=== PATIENT | male | born 1955 | race Caucasian/White ===

== ENCOUNTER → 2016-06-18 | Outpatient (CLI) | payer OTHER ==
[~2016-06-18] MED LIST: ACET50TAOT PO; ALBU17IN INH; ALBUPOW9 INH; ALBUTEROL NEB INH; AMIT24CA5 PO; BANANA; BIOF4GEL TOP; CARD1TAB5 PO; CARD40TA PO; FERR325T3 PO; LASI40TA PO; LEVA750T PO; LEVO100T54 PO; MUCI600T34 PO; PERCOCET PO; PROBCAP4 PO; PROP1TAB29 PO; SAVA1TAB5 PO; TAPA10TA2 PO; TYLE325T5 PO; VENTAER INH; VITA100072 PO
[2016-06-18 20:46] LABS: FREE T4 1.06 NG/DL (0.76-1.46)
== END | disposition home or self-care (01) ==
LOC: M LAB 17:23
PROVIDERS: ATTEND Internal Medicine Endocrinology, Diabetes & Metabolism
DX: E06.0 Acute thyroiditis (principal)

== ENCOUNTER → 2016-06-18 | Outpatient (CLI) | payer OTHER ==
--- NOTE | 2016-06-21 19:57 | SLEEPCENT ---
DATE OF PROCEDURE: 06/18/2016 ORDERED BY: Dr. Braswell Nocturnal polysomnography was performed for re-titration of pressure therapy. For testing, a ResMed Quattro full face mask of medium size was initially applied. Subsequent mask changes involved several devices. The initial pressure of 18 cm was applied to the circuit and the lights were extinguished. 7 hours and 18 minutes of data were reviewed. There were 219 minutes of sleep identified. Sleep latency was prolonged at 34 minutes. Rapid eye movement (REM) latency was prolonged at 179 minutes. Sleep architecture improved late in the study. Overall sleep efficiency was only 51.9%. The patient's EKG showed a sinus rhythm with an average heart rate of 66 beats per minute. EEG showed reasonably normal waveforms for awake and sleep. Persistence of respiratory events prompted an increase in continuous positive airway pressure (CPAP). Multiple pressures being attempted. Despite optimal mask fit and minimal air leak, the patient did have mask intolerance problems and was changed to a bilevel device. Tolerance seemed a bit better on bilevel therapy. Pressure titration was performed from 18/14 to 22/18. Despite pressures of 22/18, obstructive and mixed apneas were identified with saturations into the low 80s. There was insufficient test time to determine an optimal pressure. IMPRESSION: Severe obstructive sleep apnea syndrome (G47.33). RECOMMENDATION: Initiation of bilevel pressure therapy at an inspiratory pressure of 22 over an expiratory pressure of 18 would appear to be reasonable as the patient did not attain apnea-free sleep. An additional night for bilevel positive airway pressure (BiPAP) titration is recommended. Copy To: Yann Castillo
== END | disposition home or self-care (01) ==
LOC: M SLEEP 17:18
PROVIDERS: ATTEND Internal Medicine Pulmonary Disease
DX: G47.33 Obstructive sleep apnea (adult) (pediatric) (principal)

== ENCOUNTER → 2016-09-23 | Outpatient (REF) | payer OTHER ==
[~2016-09-23] MED LIST changes: +ASPI81TA85 PO; +LEVO88TA3
== END ==
LOC: M LAB REF 12:35
PROVIDERS: ATTEND Internal Medicine Medical Oncology
DX: C34.90 Malignant neoplasm of unspecified part of unspecified bronchus or lung (principal); D50.9 Iron deficiency anemia, unspecified

== ENCOUNTER 2016-09-26 18:00 | Emergency (ER) | payer OTHER ==
[~2016-09-26] VITALS: Ht 180.3 cm; Wt 98.9 kg
[~2016-09-26 18:00] MED LIST changes: -ASPI81TA85 PO; -LEVO88TA3
[2016-09-26] MEDS ORDERED: LEVO88TA3 (18:49)
[2016-09-26] MEDS ORDERED: ASPI81TA85 PO (18:49)
--- NOTE | 2016-09-27 00:30 | REPUSA ---
CT of the abdomen and pelvis without contrast Clinical statement: Pain. Technique: Multiple axial CT images were obtained from the base of the lungs to the floor of the pelv is utilizing 5 mm axial slices without administration of contrast. Coronal and sagittal reconstructio ns were also obtained. No comparison is available. Findings: Chest: The visualized lung bases are clear. Abdomen: The kidneys are normal in size bilaterally. There is mild left-sided hydronephrosis caused b y a 1.6 cm stone at the left ureteropelvic junction. Numerous stones are otherwise seen within the ki dneys bilaterally. There is no right-sided hydronephrosis. The liver, spleen, pancreas, and adrenal g lands are unremarkable. The aorta demonstrates normal caliber and contour. There is no abdominal lymp hadenopathy or ascites. Pelvis: The bowel is unremarkable, with no obstructive or inflammatory changes. The urinary bladder i s within normal limits. There is no pelvic lymphadenopathy or ascites. The other pelvic structures ap pear unremarkable. Bones: There are no suspicious osseous abnormalities seen. There is severe degenerative disc disease at L5/S1 and moderate degenerative disc disease at L4/L5. Small disc osteophyte complexes are seen at each of these levels. Impression: 1. Extensive bilateral nephrolithiasis. Mild left-sided hydronephrosis caused by 1.6 cm stone at the left ureteropelvic junction. 2. No obstructive or inflammatory bowel changes. 3. Degenerative disc disease with disc osteophyte complexes at L4/L5 and L5/S1 as described.
[2016-09-27 00:35] LABS: BASO % 0.8 % (0.0-1.0); EOS # 0.1 K/mm3 (0.0-0.50); EOS % 2.9 % (0.0-3.0); LARGE UNSTAINED CELL # 0.1 K/mm3 (0.0-0.4); LARGE UNSTAINED CELL % 1.4 % (0.0-4.0); LYMPH # 1.3 K/mm3 (1.5-4.5); LYMPH % 27.5 % (24.0-44.0); MEAN CORPUSCULAR HEMOGLOBIN 30.5 pg (27.0-33.0); MEAN CORPUSCULAR HGB CONC 33.7 g/dl (32.0-36.5); MEAN CORPUSCULAR VOLUME 90.4 fl (80.0-96.0); MONO # 0.3 K/mm3 (0.0-0.8); MONO % 6.5 % (0.0-5.0); NEUTROPHILS # 2.8 K/mm3 (1.8-7.7); PLATELET COUNT, AUTOMATED 163 k/mm3 (150-450); WHITE BLOOD COUNT 4.6 K/mm3 (4.0-10.0)
[2016-09-27 01:21] LABS: ANION GAP 4 MEQ/L (8-16); BLOOD UREA NITROGEN 21 MG/DL (7-18); CALCIUM LEVEL 8.7 MG/DL (8.8-10.2); CARBON DIOXIDE LEVEL 30 MEQ/L (21-32); CHLORIDE LEVEL 105 MEQ/L (98-107); CREATININE FOR GFR 0.67 MG/DL (0.70-1.30); GLOMERULAR FILTRATION RATE > 60.0 (>49); GLUCOSE, FASTING 81 MG/DL (80-110); POTASSIUM SERUM 4.1 MEQ/L (3.5-5.1); SODIUM LEVEL 139 MEQ/L (136-145)
[2016-09-27] MEDS ORDERED: NORCO, ANEXSIA 5/325MG TABLET (HYDROcodone/ACETAMINOPHEN) PO ONE (01:30)
[2016-09-27 01:37] VITALS: BP 120/80
== END 2016-09-27 01:43 | disposition home or self-care (01) ==
LOC: M ED 19:30
DX: N20.1 Calculus of ureter (principal); R31.9 Hematuria, unspecified; E03.9 Hypothyroidism, unspecified; Z95.0 Presence of cardiac pacemaker; Z85.118 Personal history of other malignant neoplasm of bronchus and lung; Z87.891 Personal history of nicotine dependence; Z79.899 Other long term (current) drug therapy

== ENCOUNTER → 2016-09-30 | Outpatient (CLI) | payer OTHER ==
[~2016-09-30] MED LIST changes: +ASPI81TA85 PO; +ISOVUE-370 76% 100ML VIAL (Q9967) As Ordered ONE; +LEVO88TA3
--- NOTE | 2016-09-30 10:16 | REP ---
CT study of the chest without contrast: History: Lung carcinoma, restaging. Comparison chest CT study August 29, 2015. CT contrast dose: 75 ml of Isovue 370 is administered intravenously. Chronic volume loss is again seen in the right hemithorax with paramediastinal distribution of fibrosis, bronchiectasis and collapse. There is diffuse pleural thickening on the right again noted with some pleural enhancement but no progressive change. There is an area of pleural calcification as well in the right base posteriorly. No pleural effusion is seen. No hilar or mediastinal adenopathy or mass lesion has developed. There are a few stable mediastinal calcifications in the right pretracheal region. No pericardial effusion is seen. Pacemaker is noted in the right heart. There is mild linear fibrosis in the left base. No pulmonary nodule or mass lesion is noted on the left or in the aerated portions of the right lung. No adrenal lesion is observed. There are clips in the gallbladder and anastomotic sutures in what appear to be the right colon. There is streaking in the peripancreatic fat today around the tail of the pancreas and the body of the pancreas raising question of pancreatitis. There is a celiac axis lymph node which is somewhat prominent measuring 1.0 cm in short axis x 1.8 cm in long axis. This is actually smaller in appearance, previously measured at 1.5 x 2.2 cm. A small accessory splenule is seen. The bottom slice in the imaging field of view shows calcific material in the renal pelvis on the left as previously described. No bony destructive lesion is appreciated. Impression: Stable intrathoracic findings. Question pancreatitis changes with peripancreatic edema. Cbozvw-V-Ckbm catheter and left-sided pacemaker. Signed by Justus Chambers MD 09/30/2016 12:08 P
== END ==
LOC: M RAD 08:10
PROVIDERS: ATTEND Nurse Practitioner Family
DX: C34.90 Malignant neoplasm of unspecified part of unspecified bronchus or lung (principal); Z95.0 Presence of cardiac pacemaker; Z95.828 Presence of other vascular implants and grafts
CPT/HCPCS: 71260; Q9967

== ENCOUNTER → 2016-10-28 | Outpatient (CLI) | payer OTHER ==
[~2016-10-28] MED LIST changes: +COLA100C3 PO; +DITR5TAB PO; +HYDR-3713 PO; +IBUPROFEN 100 MG/5 ML SUSP UDC DYE FREE As Ordered ONE; +IBUPROFEN 200 MG TAB PO ONE; +ISOVUE-300 61% 50ML VIAL (Q9967) As Ordered ONE; -ISOVUE-370 76% 100ML VIAL (Q9967) As Ordered ONE; +KETO10TAB PO; +KETOROLAC 30 MG/ML VIAL (J1885) As Ordered ONE; +KETOROLAC 30 MG/ML VIAL (J1885) IM ONE; +LIDOCAINE 1% SDV INJ 30 ML VIAL As Ordered ONE; +LIDOCAINE 1% SDV INJ 30 ML VIAL XX ONE; +LIDOCAINE 2% MDV 20 ML VIAL As Ordered ONE; +LR 1,000 ML IV SCH; +MIDAZOLAM INJ 2 MG/2 ML VIAL (J2250) As Ordered ONE; +MORPHINE 2 MG/ML 1ML SYRINGE As Ordered ONE; +MORPHINE 2 MG/ML 1ML SYRINGE IV ONE; +NORCO, ANEXSIA 5/325MG TABLET (HYDROcodone/ACETAMINOPHEN) As Ordered ONE; +NORCO, ANEXSIA 5/325MG TABLET (HYDROcodone/ACETAMINOPHEN) PO ONE; +OXYB5TA PO; +OXYC1TAB23 PO; +SODIUM BICARBONATE 8.4% INJ 50MEQ 50 ML VIAL As Ordered ONE; +TORADOL PO; +VICO5TAB16 PO; +cefTRIAXone SOD 1 GM VIAL (J0696) As Ordered ONE; +fentaNYL 100 MCG/2 ML INJECTION (J3010) As Ordered ONE; +fentaNYL 100 MCG/2 ML INJECTION (J3010) IV PRN; +oxyBUTYnin 5 MG TAB PO ONE
[2016-10-28] MEDS: NORCO, ANEXSIA 5/325MG TABLET (HYDROcodone/ACETAMINOPHEN) PO PRN ×4 (11:55→15:05)
--- NOTE | 2016-10-28 17:18 | REPKIM ---
CLINICAL HISTORY: Patient presents with left kidney stones as documented by the previous CT study. The referring urology service has requested a nephroureteral catheter (stent) placement for preop percutaneous nephrolithotripsy urology procedure. PROCEDURE PERFORMED: 1. Ultrasound left Kidney 2. Percutaneous antegrade Nephrostogram 3. Percutaneous Nephroureteral catheter (stent) placement INTERVENTIONALIST: Robert Cardozo MD CONSENT: The risks, benefits and alternatives to the procedure were explained to the patient and informed written consent was obtained. SEDATION: Sedation and analgesia was provided by the Anesthesiology Dept. MEDICATIONS: Rocephin 1gm IV, Local Lidocaine CONTRAST: 80 mL Isovue 300 EBL: 15 mL FLUORO TIME: 21.4 minutes DEVICE USED: 8.5F 26cm Nephroureteral catheter Lot #[id number] PROCEDURE/FINDINGS: The patient was brought to the interventional radiology suite and placed in the prone position, left flank prepped and draped in the usual sterile fashion. Time out procedure was performed. Ultrasound of the kidney showed a large renal pelvis kidney stone. Two smaller stones were seen in the mid and lower pole calyces. Minimally dilated calyces. Using ultrasound and fluoroscopy guidance, a 21-gauge Accustick needle was advanced into the targeted mid to lower pole of the left kidney, after infiltration of the skin and deep tissues with local anesthetic. Contrast was injected and images were obtained. This showed antegrade flow of contrast into the urinary bladder. Using a hydrophilic guidewire, the catheter-wire combination was advanced around the calyceal/renal pelvis stones into the proximal ureter then into the urinary bladder. Nephrostogram showed what appears to be filling defect in the distal ureter suggestive of partially broken migrated stones. The wire was then exchanged for a stiff wire. An 8.5-Maori 26-cm length nephroureteral was introduced over the guidewire after serial dilation of its tract. The guidewire was withdrawn and the distal end of the NU catheter formed in the bladder and proximal loop in the renal pelvis. Contrast injection showed antegrade flow of contrast into the bladder via the stent. The nephroureteral catheter was then flushed and capped. The patient tolerated the procedure well with no immediate complications. This procedure was performed using ultrasound and fluoroscopy. Dr. Cardozo was present. IMPRESSION: 1. Two calyceal stones and a large renal pelvic stone on the left. Nephrostogram demonstrates obstructing filling defect in the distal ureter suggestive of migrated stone(s) during the procedure. 2. 8.5F nephroureteral catheter (stent) placement with its tip positioned in the bladder and proximal loop in the renal pelvis. This access will be used for subsequent percutaneous nephrolithotripsy urology procedure. Findings discussed via phone with Dr. Banks. cc: Johnny Banks MD MTDD
[2016-10-28 18:30] VITALS: BP 100/47
== END | disposition home or self-care (01) ==
LOC: M IRPRO 08:35 → M SDC 08:35
PROVIDERS: ATTEND Urology
DX: N20.0 Calculus of kidney (principal)
CPT/HCPCS: 50395; 74485; 77001; C1769; C1887; C1894; C2625; J0696; J1885; J2250; J3010; Q9967

== ENCOUNTER 2016-10-30 10:23 | Day surgery (SDC) | payer OTHER ==
[~2016-10-30] VITALS: Ht 182.9 cm; Wt 100.0 kg
[~2016-10-30 10:23] MED LIST changes: -COLA100C3 PO; -DITR5TAB PO; -IBUPROFEN 100 MG/5 ML SUSP UDC DYE FREE As Ordered ONE; -IBUPROFEN 200 MG TAB PO ONE; -ISOVUE-300 61% 50ML VIAL (Q9967) As Ordered ONE; -KETO10TAB PO; -KETOROLAC 30 MG/ML VIAL (J1885) As Ordered ONE; -KETOROLAC 30 MG/ML VIAL (J1885) IM ONE; -LIDOCAINE 1% SDV INJ 30 ML VIAL As Ordered ONE; -LIDOCAINE 1% SDV INJ 30 ML VIAL XX ONE; -LIDOCAINE 2% MDV 20 ML VIAL As Ordered ONE; -LR 1,000 ML IV SCH; -MIDAZOLAM INJ 2 MG/2 ML VIAL (J2250) As Ordered ONE; -MORPHINE 2 MG/ML 1ML SYRINGE As Ordered ONE; -MORPHINE 2 MG/ML 1ML SYRINGE IV ONE; -NORCO, ANEXSIA 5/325MG TABLET (HYDROcodone/ACETAMINOPHEN) As Ordered ONE; -NORCO, ANEXSIA 5/325MG TABLET (HYDROcodone/ACETAMINOPHEN) PO ONE; -OXYB5TA PO; -OXYC1TAB23 PO; -SODIUM BICARBONATE 8.4% INJ 50MEQ 50 ML VIAL As Ordered ONE; -TORADOL PO; -VICO5TAB16 PO; -cefTRIAXone SOD 1 GM VIAL (J0696) As Ordered ONE; -fentaNYL 100 MCG/2 ML INJECTION (J3010) As Ordered ONE; -fentaNYL 100 MCG/2 ML INJECTION (J3010) IV PRN; -oxyBUTYnin 5 MG TAB PO ONE
[2016-10-30] MEDS ORDERED: LR 1,000 ML IV ONE (10:30)
[2016-10-30] MEDS ORDERED: VICO5TAB16 PO (11:18)
[2016-10-30] MEDS ORDERED: DITR5TAB PO (11:18)
[2016-10-30] MEDS ORDERED: TORADOL PO (11:18)
[2016-10-30] MEDS ORDERED: LIDOCAINE 2% INJ 100 MG/5 ML SDV (FOR ANES.) As Ordered ONE (12:04)
[2016-10-30] MEDS ORDERED: ROCURONIUM BROMIDE 50 MG/5 ML VIAL As Ordered ONE ×2 (12:04→14:02)
[2016-10-30] MEDS ORDERED: PROPOFOL 200 MG/20 ML VIAL As Ordered ONE (12:04)
[2016-10-30] MEDS ORDERED: MIDAZOLAM INJ 2 MG/2 ML VIAL (J2250) As Ordered ONE (12:05)
[2016-10-30] MEDS ORDERED: fentaNYL 250 MCG/5 ML INJECTION (J3010) As Ordered ONE (12:05)
[2016-10-30] MEDS ORDERED: CONRAY-60 60% 50ML VIAL (Q9961) As Ordered ONE (12:50)
[2016-10-30] MEDS ORDERED: OXYB5TA PO (12:56)
[2016-10-30] MEDS ORDERED: KETO10TAB PO (12:58)
[2016-10-30] MEDS ORDERED: ONDANSETRON 4MG/2ML VIAL (J2405) IV PRN ×2 (13:15→15:15)
[2016-10-30] MEDS ORDERED: oxyBUTYnin 5 MG TAB PO PRN (13:15)
[2016-10-30] MEDS ORDERED: ALBUTEROL 90 MCG/ACT 8GM HFA INHALER INH PRN (13:15)
[2016-10-30] MEDS ORDERED: ACETAMINOPHEN TAB 650MG DOSE (2X325MG) PO PRN (13:15)
[2016-10-30] MEDS ORDERED: MORPHINE 2 MG/ML 1ML SYRINGE IV PRN (13:15)
[2016-10-30] MEDS ORDERED: dexameTHASONE 4 MG/ML 1ML VIAL (J1100) As Ordered ONE (14:22)
[2016-10-30] MEDS ORDERED: GLYCOPYRROLATE INJ 0.2 MG/ML 2 ML VIAL As Ordered ONE (14:22)
[2016-10-30] MEDS ORDERED: ONDANSETRON 4MG/2ML VIAL (J2405) As Ordered ONE (14:22)
[2016-10-30] MEDS ORDERED: NEOSTIGMINE 1MG/ML 5 ML SYRINGE (J2710) As Ordered ONE (14:22)
[2016-10-30] MEDS ORDERED: PERCOCET 5MG/325MG TAB As Ordered ONE (15:02)
[2016-10-30] MEDS ORDERED: HYDROmorphone HCL 1 MG/ML SYRINGE (J1170) As Ordered ONE (15:02)
[2016-10-30] MEDS: PERCOCET 5MG/325MG TAB PO PRN ×3 (15:05→21:07)
[2016-10-30] MEDS: HYDROmorphone HCL 1 MG/ML SYRINGE (J1170) IV PRN ×5 (15:05→15:27)
--- NOTE | 2016-10-30 15:09 | REP ---
RETROGRADE PYELOGRAM: 10/30/2016. Clinical history: Nephrolithiasis. Findings: Five images from C-arm fluoroscopy provided to Dr. Banks of the urology division. Images show wire passed through nephrostomy tube into the collecting system and down the ureter. Images show a pigtail internal ureteral stent coiled in the bladder and renal pelvis with contrast in the collecting system and part of that ureter. Fluoroscopy time 1-minute 1-second Signed by Bhanu Fernánedz MD 10/30/2016 05:24 P
[2016-10-30 15:13] LABS: MEAN CORPUSCULAR HEMOGLOBIN 31.2 pg (27.0-33.0); MEAN CORPUSCULAR HGB CONC 32.8 g/dl (32.0-36.5); MEAN CORPUSCULAR VOLUME 95.1 fl (80.0-96.0)
[2016-10-30] MEDS ORDERED: LR 1,000 ML IV SCH (15:15)
[2016-10-30] MEDS ORDERED: METOCLOPRAMIDE INJ 10MG/2ML VIAL (J2765) IV PRN (15:15)
[2016-10-30 15:30] LABS: ANION GAP 5 MEQ/L (8-16); BLOOD UREA NITROGEN 19 MG/DL (7-18); CALCIUM LEVEL 7.6 MG/DL (8.8-10.2); CARBON DIOXIDE LEVEL 29 MEQ/L (21-32); CHLORIDE LEVEL 106 MEQ/L (98-107); CREATININE FOR GFR 0.72 MG/DL (0.70-1.30); GLOMERULAR FILTRATION RATE > 60.0 (>49); GLUCOSE, FASTING 82 MG/DL (80-110); POTASSIUM SERUM 4.1 MEQ/L (3.5-5.1); SODIUM LEVEL 140 MEQ/L (136-145)
[2016-10-30] MEDS: fentaNYL 100 MCG/2 ML INJECTION (J3010) IV PRN ×4 (15:35→15:55)
--- NOTE | 2016-10-30 16:48 | ROOPDOC ---
[facility] Report Of Operation Report of Operation DATE OF PROCEDURE: 10/30/2016 PREPROCEDURE DIAGNOSIS: Left kidney stones. POSTPROCEDURE DIAGNOSIS: Left kidney stones. PROCEDURE: Left percutaneous nephrolithotomy, left antegrade nephrostogram with intraoperative interpretation of images, left ureteral stent placement. SURGEON: Dr. Karey Cummings SENIOR GAME ADVISOR: None. ANESTHESIA: General. OPERATIVE INDICATIONS: This is a 61-year-old male who was found to have a 1.7cm left kidney stone as well as several smaller kidney stones. He was brought today for treatment. DESCRIPTION OF PROCEDURE: The patient was brought to the operating room and general anesthesia was induced. Prophylactic antibiotics were infused. He then had a Sorto catheter placed under sterile conditions. He was then placed in the prone position and then prepped and draped in the usual sterile fashion. Of note, the patient previously had a nephroureteral stent placed via interventional radiology. I used the nephroureteral stent to gain access to the kidney. A wire was advanced down the stent, all the way down to the bladder and then the nephroureteral stent was removed. An approximately 3 cm transverse incision was made adjacent to the wire. I then advanced a dual lumen ureteral catheter down the wire and into the left renal pelvis. An antegrade nephrostogram was performed. It was negative for extravasation. I then advanced a Super Stiff wire down the dual lumen ureteral catheter and this was advanced all the way down into the bladder as well. The dual lumen ureteral catheter was then removed, leaving both wires in place. The Super Stiff wire was then secured to the drape to serve as a safety wire. I then advanced a balloon dilator over the guidewire and into the left renal pelvis. The balloon was then dilated to 18 atmospheres and then left in place for a minute. I then advanced a sheath over the balloon and into the left collecting system. The balloon was then let down and removed, leaving the sheath in place. The wire was also left in place. I then went into the left kidney with a nephroscope, and the 1.7 cm stone was easily seen. The stone was then fragmented into several smaller pieces using a CyberWand and the pieces were suctioned out. Once the larger stone had been removed, I then used a flexible cystoscope to examine the remainder of the kidney and only small stone fragments were seen. I then went down the ureter with a flexible ureteroscope and no stones were seen in the ureter. At this point, I then advanced a 7-Solomon Islander x 22-32 cm JJ ureteral stent down into the left collecting system over the guidewire. The wire was then removed and there were adequate curls of the stent in the left renal pelvis and in the bladder. At this point, the access sheath was removed, and I advanced an 18- Solomon Islander [place] Tip catheter over the Super Stiff wire into the left collecting system. The balloon was then inflated with about 2-3 mL of contrast and then that Super Stiff wire was removed. I then shot an antegrade nephrostogram, and it was negative for extravasation and also noted the nephrostomy catheter was in good position. This catheter was then secured to the skin using a #3-0 silk suture. Once that was done, the catheter was connected to gravity drainage. Dressings were then applied, and this marked the conclusion of the procedure. The patient was then taken out of the prone position, awakened from anesthesia, and transported to the recovery room in stable condition. ESTIMATED BLOOD LOSS: 50 mL. COMPLICATIONS: None. SPECIMENS: Left kidney stone fragments. PLAN: The patient will be kept in the hospital overnight. Assuming his blood work is within acceptable limits and his pain is controlled, we will remove his nephrostomy catheter in the morning and then his Sorto catheter as well. His stent will be removed in 2-3 weeks. KAREY CUMMINGS MD October 30, 2016 16:47
[2016-10-30] MEDS: ceFAZolin SOD 1 GM in D5W MINI-BAG PLUS 50 ML IV SCH (18:34)
[2016-10-30] MEDS: NS 1,000 ML IV SCH ×2 (18:35→21:05)
[2016-10-30] MEDS: DOCUSATE SODIUM 100 MG CAP PO SCH (21:06)
[2016-10-30 22:00] VITALS: BP 105/53
[2016-10-31] MEDS: ceFAZolin SOD 1 GM in D5W MINI-BAG PLUS 50 ML IV SCH (03:00)
[2016-10-31] MEDS: PERCOCET 5MG/325MG TAB PO PRN (03:52)
[2016-10-31] MEDS: NS 1,000 ML IV SCH ×2 (03:59→12:58)
[2016-10-31 06:00] VITALS: BP 108/58
[2016-10-31] MEDS ORDERED: LEVOTHYROXINE 0.1 MG TAB (100 MCG) PO SCH (06:00)
[2016-10-31 06:53] LABS: MEAN CORPUSCULAR HEMOGLOBIN 31.3 pg (27.0-33.0); MEAN CORPUSCULAR HGB CONC 32.9 g/dl (32.0-36.5); MEAN CORPUSCULAR VOLUME 95.3 fl (80.0-96.0); RED CELL DISTRIBUTION WIDTH 13.9 % (11.5-14.5); WHITE BLOOD COUNT 5.9 K/mm3 (4.0-10.0)
[2016-10-31 07:06] LABS: ANION GAP 6 MEQ/L (8-16); BLOOD UREA NITROGEN 16 MG/DL (7-18); CALCIUM LEVEL 7.4 MG/DL (8.8-10.2); CARBON DIOXIDE LEVEL 28 MEQ/L (21-32); CHLORIDE LEVEL 105 MEQ/L (98-107); CREATININE FOR GFR 0.63 MG/DL (0.70-1.30); GLOMERULAR FILTRATION RATE > 60.0 (>49); GLUCOSE, FASTING 119 MG/DL (80-110); POTASSIUM SERUM 4.2 MEQ/L (3.5-5.1); SODIUM LEVEL 139 MEQ/L (136-145)
[2016-10-31] MEDS ORDERED: ASPIRIN 81 MG ENTERIC TAB PO SCH (09:00)
[2016-10-31] MEDS: DOCUSATE SODIUM 100 MG CAP PO SCH (09:19)
--- NOTE | 2016-10-31 10:04 | IPNPDOC ---
Assessment/Plan Date Seen The patient was seen on 10/31/16. Patient Summary This is a 61 y/o M POD1 s/p left PCNL. His nephrostomy tube drainage is still pretty bloody. I therefore did not remove it this morning. His Hb went down a little to 9.3. His vitals are stable. Plan/VTE VTE Prophylaxis Ordered?: Yes VTE Exclusion Mechanical Proph: N/A:VTE Prophy Ordered Plan/Urinary Catheter Urinary Catheter: Other Catheter: (keep catheter in place until hematuria improves) Plan - will plan to keep the nephrostomy tube in place for now to help tamponade any bleeding - once hematuria from the nephrostomy tube improves, I will remove it - melo catheter to be removed after the nephrostomy tube is removed - keep IVF going for now - ambulate - percocet prn pain - strict I/Os - SCDs - regular diet Subjective Review oF Systems Chief Complaint The patient is a 61-year-old male admitted with a reason for visit of Nephrolithiasis. Events since Last Encounter No acute events o/n. Patient notes good pain control. No n/v. No f/c/ns. Objective Physical Examination General Exam: Alert, Cooperative, No Acute Distress Skin Exam: Nl turgor and temperature Neuro Exam: Normal Speech Psych Exam: Mental status NL, Mood NL Other physical findings left nephrostomy catheter draining bloody urine; catheter in place w/ pink urine draining Vital Signs/I&O Vital Signs Date Time Temp Pulse Resp B/P (MAP) Pulse Ox O2 Delivery O2 Flow Rate FiO2 10/31/16 06:00 97.3 70 18 108/58 (75) 95 Room Air 10/30/16 21:30 2.0 I&O- Last 24 Hours up to 6 AM 10/31/16 06:00 Intake Total 2060 ml Output Total 825 ml Balance 1235 ml Laboratory Data Labs 24H Laboratory Tests 2 10/30/16 14:10: 10/30/16 14:58: Anion Gap 5L, Glomerular Filtration Rate > 60.0, Blood Urea Nitrogen 19H, Creatinine 0.72, Sodium Level 140, Potassium Level 4.1, Chloride Level 106, Carbon Dioxide Level 29, Calcium Level 7.6L 10/31/16 06:18: Anion Gap 6L, Glomerular Filtration Rate > 60.0, Blood Urea Nitrogen 16, Creatinine 0.63L, Sodium Level 139, Potassium Level 4.2, Chloride Level 105, Carbon Dioxide Level 28, Calcium Level 7.4L CBC/BMP Laboratory Tests 10/30/16 14:58 Red Blood Count 3.26 L, Mean Corpuscular Volume 95.1, Mean Corpuscular Hemoglobin 31.2, Mean Corpuscular Hemoglobin Concent 32.8, Red Cell Distribution Width 14.0, Calcium Level 7.6 L 10/31/16 06:18 Red Blood Count 2.98 L, Mean Corpuscular Volume 95.3, Mean Corpuscular Hemoglobin 31.3, Mean Corpuscular Hemoglobin Concent 32.9, Red Cell Distribution Width 13.9, Calcium Level 7.4 L KAREY CUMMINGS MD October 31, 2016 10:04
[2016-10-31] MEDS ORDERED: COLA100C3 PO (16:47)
[2016-10-31] MEDS ORDERED: OXYC1TAB23 PO (16:47)
[2016-10-31] MEDS ORDERED: TYLE325T5 PO (16:48)
== END 2016-10-31 20:12 | disposition home or self-care (01) ==
LOC: M OR 10:23 → UNDOADMIN 10:23 → M MS5PR 10:23 → M SDC 10:23 → EDSTATUS 12:30 → M MS5PR 16:10 → M OR 16:10 → M SDC 10-31 20:12 → UNDODISIN 10-31 20:12
PROVIDERS: ATTEND Urology
DX: N20.0 Calculus of kidney (principal); E03.9 Hypothyroidism, unspecified; J44.9 Chronic obstructive pulmonary disease, unspecified; G47.33 Obstructive sleep apnea (adult) (pediatric); I48.3 Typical atrial flutter; I49.5 Sick sinus syndrome; Z95.0 Presence of cardiac pacemaker; E66.8 Other obesity; Z85.118 Personal history of other malignant neoplasm of bronchus and lung; Z92.21 Personal history of antineoplastic chemotherapy; Z92.3 Personal history of irradiation; Z79.899 Other long term (current) drug therapy; Z79.82 Long term (current) use of aspirin; Z79.2 Long term (current) use of antibiotics
CPT/HCPCS: 36415; 50080; 74420; 80048; 82360; 85027; 86850; 86900; 86901; 88300; 96361; 96374; 96376; C1726; C1769; C1887; C2617; J0690; J1100; J1170; J2250; J2405; J2710; J3010; Q9961

== ENCOUNTER → 2016-11-19 | Day surgery (SDC) | payer OTHER ==
[~2016-11-19] VITALS: Ht 182.9 cm; Wt 99.8 kg
[~2016-11-19] MED LIST changes: +BUPIVACAINE LIPOSOME/PF 1.3% 20 ML VIAL (13.3MG/ML)(EXPAREL) As Ordered ONE; +COLA100C3 PO; +CONRAY-60 60% 50ML VIAL (Q9961) As Ordered ONE; +DITR5TAB PO; +KETO10TAB PO; +LIDOCAINE 1% MDV 20ML VIAL As Ordered ONE; +LIDOCAINE 2% INJ 100 MG/5 ML SDV (FOR ANES.) As Ordered ONE; +LR 1,000 ML IV SCH; +MIDAZOLAM INJ 2 MG/2 ML VIAL (J2250) As Ordered ONE; +MUPIROCIN 2% OINT 22 GM TUBE TOP ONE; +OXYB5TA PO; +OXYC1TAB23 PO; +PROPOFOL 200 MG/20 ML VIAL As Ordered ONE; +TORADOL PO; +VICO5TAB16 PO; +ceFAZolin 1GM INJ (J0690) As Ordered ONE; +ceFAZolin SOD 1 GM in D5W MINI-BAG PLUS 50 ML IV ONE; +ePHEDrine SULFATE 25 MG/5 ML(5MG/ML) SYRINGE As Ordered ONE; +fentaNYL 100 MCG/2 ML INJECTION (J3010) As Ordered ONE
[2016-11-19 12:00] VITALS: BP 97/52
--- NOTE | 2016-11-19 12:15 | REP ---
C-ARM VIEWS CHEST: C-arm views of the chest are performed during intraoperative procedure. Multiple leads are seen overlying the chest. 59 minutes and 38 seconds fluoroscopy time utilized. Signed by Carlos Monzon MD 11/19/2016 12:55 P
--- NOTE | 2016-11-19 14:02 | RO ---
DATE OF PROCEDURE: 11/19/2016 PREPROCEDURE DIAGNOSIS: Retained Topynp-T-Gvhc after completion of chemotherapy nearly 8 years ago. POSTPROCEDURE DIAGNOSIS: Retained Iosysp-E-Uvmk after completion of chemotherapy nearly 8 years ago. PROCEDURE: Removal of Hulmnu-Z-Fqkt. SURGEON: Juan M Kwon MD PRODUCTION LINE SOLDERER: ANESTHESIA: FINDINGS: The Uvgfmf-Q-Jxjo was located, and the glistening capsule was entered. The stem of the port was identified, and the catheter was mobilized. The catheter then pulled out very easily. However, upon inspection of the catheter, it was found that the end had been shredded at about 20 cm and that there was still retained catheter in the vena cava. The patient had between the time of the removal and the original placement nearly 8 years ago had a pacemaker placed. It was conjectured that the pacemaker insertion shredded the catheter at the junction of the innominate vein and the vena cava. The pacer was placed in 2010, and the catheter has been detached from the proximal end for about 6 years. Nonetheless, I asked Dr. Cardozo of interventional radiology to come up and try to retrieve the catheter; and after 2 hours, it was clear that the catheter was fibrosed through the vena caval wall and was not going to be coming out. Dr. Cardozo's dictation will be done separately. DESCRIPTION OF PROCEDURE: Under satisfactory monitored anesthesia care (MAC) anesthesia, the patient was prepped and draped in the usual sterile fashion. Incision was made over the Yxygty-L-Hjus site with care being taken not to enter the capsule of the pacemaker. The capsule of the port was entered. The stem was identified, and dissection was carried more proximal until the catheter could actually be seen. The catheter was seized with a hemostat and delivered into the wound. The catheter was then pulled back from its entry point in the subcutaneous tissue. The catheter pulled very easily, but upon inspection, the above results were noted with the catheter being shredded at about 20 cm. The catheter and port were left in situ until Dr. Cardozo came to the operating room and was able to assess and see the end of the catheter and where it would have been projected into the vena cava. The remainder of the Byioqt-C-Fyuv was then removed, as was the glistening capsule. The incision was closed with running #3-0 Vicryl suture for the subcutaneous tissue and running #4-0 Monocryl suture for the skin. Dr. Cardozo then proceeded to attempt to remove the end of the distal catheter by interventional techniques. That will be dictated in a separate note. The patient tolerated the procedure well.
== END | disposition home or self-care (01) ==
LOC: M SDC 07:28
PROVIDERS: ATTEND Thoracic Surgery (Cardiothoracic Vascular Surgery)
DX: Z45.2 Encounter for adjustment and management of vascular access device (principal); I48.0 Paroxysmal atrial fibrillation; I48.3 Typical atrial flutter; I49.5 Sick sinus syndrome; E66.8 Other obesity; I10 Essential (primary) hypertension; J44.9 Chronic obstructive pulmonary disease, unspecified; E03.9 Hypothyroidism, unspecified; I51.9 Heart disease, unspecified; K59.00 Constipation, unspecified; R19.7 Diarrhea, unspecified; G47.33 Obstructive sleep apnea (adult) (pediatric); R06.83 Snoring; Z79.899 Other long term (current) drug therapy; Z79.82 Long term (current) use of aspirin; Z85.118 Personal history of other malignant neoplasm of bronchus and lung; Z87.442 Personal history of urinary calculi; Z86.010 Personal history of colon polyps; Z87.891 Personal history of nicotine dependence; Z92.21 Personal history of antineoplastic chemotherapy; Z92.3 Personal history of irradiation; Z95.0 Presence of cardiac pacemaker
CPT/HCPCS: 36590; 76000; 88300; C1769; C1887; C1894; J0690; J2250; J3010; Q9961

== ENCOUNTER → 2016-11-20 | Outpatient (CLI) | payer OTHER ==
[~2016-11-20] MED LIST changes: -BUPIVACAINE LIPOSOME/PF 1.3% 20 ML VIAL (13.3MG/ML)(EXPAREL) As Ordered ONE; -CONRAY-60 60% 50ML VIAL (Q9961) As Ordered ONE; +ISOVUE-300 61% 50ML VIAL (Q9967) As Ordered ONE; -LIDOCAINE 1% MDV 20ML VIAL As Ordered ONE; -LIDOCAINE 2% INJ 100 MG/5 ML SDV (FOR ANES.) As Ordered ONE; -LR 1,000 ML IV SCH; -MUPIROCIN 2% OINT 22 GM TUBE TOP ONE; -PROPOFOL 200 MG/20 ML VIAL As Ordered ONE; +SODIUM BICARBONATE 4 % INJ 2.4MEQ 5 ML VIAL (THIS HAS A PRESERVATIVE) As Ordered ONE; -ceFAZolin 1GM INJ (J0690) As Ordered ONE; -ceFAZolin SOD 1 GM in D5W MINI-BAG PLUS 50 ML IV ONE; -ePHEDrine SULFATE 25 MG/5 ML(5MG/ML) SYRINGE As Ordered ONE
[2016-11-20 16:30] VITALS: BP 112/65
--- NOTE | 2016-11-20 17:30 | REPKIM ---
CLINICAL HISTORY: Patient with la history of lung ca, history of radiation treatment in the past, left chest rvhrsk-y-rmom since 2008 and internal pacemaker since 2015 has a broken lsoumb-e-ansjsart with its tip in the right heart. Patient presents to interventional radiology for foreign body retrieval. PROCEDURE PERFORMED: Endovascular Foreign Body Retrieval INTERVENTIONALIST: Robert Cardozo MD CONSENT: The risks, benefits and alternatives to the procedure were explained to the patient and his and informed written consent was obtained. SEDATION: Sedation and analgesia was provided by the Anesthesiology Dept. EBL: less than 10 mL FLUORO TIME: 21 minutes DEVICE USED: 20mm Goose Neck Snare PROCEDURE/FINDINGS: The patient was brought to the interventional radiology suite where a timeout procedure was performed. The patient was placed in the supine position. A pre- procedure chest fluoroscopy confirmed a retained infusate catheter tip in the right atrium. The free cephalic end of catheter was confirmed to be stuck to the SVC wall. The left internal pacemaker is in a satisfactory course and position. The right groin was prepped and draped in the usual sterile fashion. Local anesthetic was established using Lidocaine. Using ultrasound guidance, the right common femoral vein was accessed with a micropuncture needle. Using Seldinger technique, a 10-Togolese long vascular sheath was introduced. The sheath was advanced over a guide wire into the superior vena cava and its tip positioned at the level of the cavoatrial junction. A 5-Togolese SOS catheter was introduced over a guidewire. I successfully dislodged the broken catheter tip from the RA end by whipping it with a SOS catheter. This also confirmed the RA end of the catheter is free from the RA wall and not adherent to the internal cardia pacer wire. A 6-Togolese long curvelinear sheath was then coaxially introduced. A 20mm wire loop snare was then advanced through the 6F sheath and used to snare the free end of the catheter in the right atrium. With some manipulations of the sheath and snare, the proximal end of the catheter at the SVC was freed relatively easily. Inspection of the retrieved infusate catheter confirmed that it was removed in its entirety and the catheter was intact. Post FB retrieval chest also confirmed the existing internal cardiac pacemaker is intact in a satisfactory course and position. The sheath was removed. Hemostasis was achieved by manual compression over the puncture site. The patient tolerated the procedure well with no immediate complications. This procedure was performed using fluoroscopy. Dr. Cardozo was present. IMPRESSION: Successful retrieval of a retained infusate catheter in the right heart as discussed above. cc: Juan M Kwon MD [facility]
== END | disposition home or self-care (01) ==
LOC: M OROP 11:53 → M SDC 11:53
DX: T82.514A Breakdown (mechanical) of infusion catheter, initial encounter (principal); Z85.118 Personal history of other malignant neoplasm of bronchus and lung; Z92.3 Personal history of irradiation
CPT/HCPCS: 36589; 77001; C1757; C1769; C1887; C1894; J2250; J3010; Q9967

== ENCOUNTER → 2016-11-28 | Outpatient (CLI) | payer OTHER ==
[~2016-11-28] MED LIST changes: -ISOVUE-300 61% 50ML VIAL (Q9967) As Ordered ONE; -MIDAZOLAM INJ 2 MG/2 ML VIAL (J2250) As Ordered ONE; -SODIUM BICARBONATE 4 % INJ 2.4MEQ 5 ML VIAL (THIS HAS A PRESERVATIVE) As Ordered ONE; -fentaNYL 100 MCG/2 ML INJECTION (J3010) As Ordered ONE
== END ==
LOC: M SMT 08:10
PROVIDERS: ATTEND Thoracic Surgery (Cardiothoracic Vascular Surgery)
DX: C34.90 Malignant neoplasm of unspecified part of unspecified bronchus or lung (principal); R91.8 Other nonspecific abnormal finding of lung field

== ENCOUNTER 2017-06-05 14:03 | Emergency (ER) | payer OTHER ==
[~2017-06-05] VITALS: Ht 177.8 cm; Wt 100.0 kg
[~2017-06-05 14:03] MED LIST changes: -AMIT24CA5 PO; +AMIT24CA7 PO; +AMIT8CAP4 PO; +ASPI81TAEC PO; -COLA100C3 PO; +COLA100C5 PO; +DOXY-278 PO; +ELIQ5TAB PO; +FLON1SPR; +IBUPOTC PO; -LEVA750T PO; +LEVA750T7 PO; +LEVO88TA24 PO; +MUCI600T37 PO; -OXYB5TA PO; +OXYB5TAB10 PO; +VITA100066 PO; +VITA500T3 PO; +ZYRT10TA2 PO
[2017-06-05] MEDS ORDERED: ONDANSETRON 4MG/2ML VIAL (J2405) IV ONE (15:15)
[2017-06-05] MEDS ORDERED: MORPHINE 4 MG/ML 1ML SYRINGE IV PRN (15:15)
--- NOTE | 2017-06-05 16:15 | REP ---
Right ankle series: Four views: History: Trauma. Findings: Four view s of the right ankle demonstrate lateral malleolar swelling. There is a bone island in the distal tibia. Osteoarthritic spurring is seen at the ankle. There is Achilles calcaneal spurring. No fracture or subluxation is seen. Impression: Ankle osteoarthritis. No fracture seen. Heel spur. Signed by Justus Chambers MD 06/05/2017 05:11 P
--- NOTE | 2017-06-05 16:17 | REP ---
Right tib-fib series: Two views. History: Trauma. Findings: AP and lateral views of the right tibia and fibula are compared with ankle images. There is a nondisplaced fracture through the proximal fibular salty-metaphyseal region. No proximal tibial fracture is seen. Impression: Nondisplaced proximal fibular salty-metaphyseal fracture. No tibial fracture seen. Signed by Justus Chambers MD 06/05/2017 05:11 P
[2017-06-05] MEDS ORDERED: NORCOTAB PO (17:01)
[2017-06-05] MEDS ORDERED: NORCO, ANEXSIA 5/325MG TABLET (HYDROcodone/ACETAMINOPHEN) PO ONE (17:15)
[2017-06-05 17:22] VITALS: BP 122/61
== END 2017-06-05 17:48 | disposition home or self-care (01) ==
LOC: M ED 14:03 → EDBD 14:03 → M ED 17:48
DX: S82.831A Other fracture of upper and lower end of right fibula, initial encounter for closed fracture (principal); S93.401A Sprain of unspecified ligament of right ankle, initial encounter; W00.9XXA Unspecified fall due to ice and snow, initial encounter; Y92.009 Unspecified place in unspecified non-institutional (private) residence as the place of occurrence of the external cause; Y93.01 Activity, walking, marching and hiking; Y99.8 Other external cause status; C34.90 Malignant neoplasm of unspecified part of unspecified bronchus or lung; J44.9 Chronic obstructive pulmonary disease, unspecified; I48.91 Unspecified atrial fibrillation; G47.33 Obstructive sleep apnea (adult) (pediatric); F17.210 Nicotine dependence, cigarettes, uncomplicated; Z79.82 Long term (current) use of aspirin; Z79.899 Other long term (current) drug therapy; Z88.8 Allergy status to other drugs, medicaments and biological substances
CPT/HCPCS: 73590; 73610; 96374; 96375; 99284; J2405

== ENCOUNTER → 2017-07-09 | Outpatient (REF) | payer OTHER ==
[2017-07-09 14:50] LABS: FERRITIN 283 NG/ML (26-388); IRON (FE) 52 UG/DL (65-175); TOTAL IRON BINDING CAPACITY 200 UG/DL (250-450)
== END ==
LOC: M LAB REF 13:32
DX: Z08 Encounter for follow-up examination after completed treatment for malignant neoplasm (principal); Z85.118 Personal history of other malignant neoplasm of bronchus and lung; D50.9 Iron deficiency anemia, unspecified
CPT/HCPCS: 83550

== ENCOUNTER → 2017-07-30 | Outpatient (CLI) | payer OTHER | LOC: M RAD 07:02 | DX: R91.8 Other nonspecific abnormal finding of lung field (principal) | CPT/HCPCS: 71250 ==

== ENCOUNTER 2018-03-07 23:41 | Inpatient (IN) | payer OTHER ==
[2018-03-08 00:30] LABS: ALBUMIN 3.4 GM/DL (3.2-5.2); ALBUMIN/GLOBULIN RATIO 0.76 (1.00-1.93); ALKALINE PHOSPHATASE 46 U/L (45-117); ALT/SGPT 14 U/L (12-78); ANION GAP 5 MEQ/L (8-16); AST/SGOT 21 U/L (7-37); BILIRUBIN,DIRECT 0.2 MG/DL (0.0-0.2); BILIRUBIN,TOTAL 0.6 MG/DL (0.2-1.0); BLOOD UREA NITROGEN 19 MG/DL (7-18); CALCIUM LEVEL 8.1 MG/DL (8.8-10.2); CARBON DIOXIDE LEVEL 31 MEQ/L (21-32); CHLORIDE LEVEL 105 MEQ/L (98-107); CPK CREATINE PHOSPHOKINASE 137 U/L (39-308); CREATININE FOR GFR 1.03 MG/DL (0.70-1.30); GLOMERULAR FILTRATION RATE > 60.0 (>49); GLUCOSE, FASTING 86 MG/DL (70-100); MB/CK RELATIVE INDEX 0.95 (< OR =4); NT-PRO BNP 1367 PG/ML (<125); POTASSIUM SERUM 3.7 MEQ/L (3.5-5.1); SODIUM LEVEL 141 MEQ/L (136-145); THYROID STIMULATING HORMONE 0.367 uIU/ML (0.358-3.740); THYROXINE (T4) 9.4 UG/DL (4.5-12.0); TOTAL PROTEIN 7.9 GM/DL (6.4-8.2); TROPONIN I < 0.02 NG/ML (< 0.10)
[2018-03-08 00:37] LABS: HEMATOCRIT 33.3 % (42.0-52.0); HEMOGLOBIN 10.8 g/dl (13.5-17.5); MEAN CORPUSCULAR HEMOGLOBIN 30.4 pg (27.0-33.0); MEAN CORPUSCULAR HGB CONC 32.4 g/dl (32.0-36.5); MEAN CORPUSCULAR VOLUME 93.8 fl (80.0-96.0); PLATELET COUNT, AUTOMATED 110 10^3/uL (150-450); RED BLOOD COUNT 3.55 10^6/uL (4.30-6.10); RED CELL DISTRIBUTION WIDTH 14.8 % (11.5-14.5); WHITE BLOOD COUNT 8.4 10^3/uL (4.0-10.0)
[2018-03-08 00:38] LABS: ADD MANUAL DIFFER YES; DIFF SLIDE NUMBER 79; POSITIVE MORPH POS FLAG
[2018-03-08 00:42] LABS: ABG BASE EXCESS 0.4 (-2.0-2.0); ABG HCO3 25.6 MEQ/L (22.0-26.0); ABG O2 SATURATION 96.4 % (95.0-99.0); ABG PARTIAL PRESSURE CO2 43.2 mmHg (35.0-45.0); ABG PARTIAL PRESSURE O2 86.6 mmHg (75.0-100.0); ABG STANDARD HCO3 24.9 MEQ/L (22.0-26.0); ABG TOTAL CO2 26.9 MEQ/L (23.0-31.0)
[2018-03-08] MEDS: PIPERACILLIN/TAZOBACTAM SOD 3.375 GM in D5W MINI-BAG PLUS 50 ML IV (00:45)
[2018-03-08 00:47] LABS: KETONE, URINE AUTO RFX NEGATIVE (NEGATIVE); LEUKOCYTE ESTERASE UR AUTO RFX NEGATIVE (NEGATIVE); MUCUS, URINE RFX SMALL (NEGATIVE); NITRITE, URINE AUTO RFX NEGATIVE (NEGATIVE); RBC, URINE AUTO RFX TNTC /HPF (0-3); SPECIFIC GRAVITY UR AUTO RFX 1.019 (1.002-1.035); SQUAM EPITHELIAL CELL UR AURFX 0 /HPF (0-6)
[2018-03-08 00:59] LABS: BANDS 3 % (< 11); LYMPHOCYTES 14 % (16-52); MONOCYTES 2 % (0-8); NEUTROPHILS 81 % (35-75)
[2018-03-08 01:00] LABS: ANISOCYTOSIS 1+; PLATELET ESTIMATE NORMAL (NORMAL)
[2018-03-08] MEDS: VANCOMYCIN HCL 1,000 MG, VIAL MATE ADAPTER 1 EACH in D5W 250 ML IV (01:02)
[2018-03-08 01:08] LABS: WBC, URINE AUTO RFX 30 /HPF (0-3)
[2018-03-08] MEDS ORDERED: ISOVUE-370 76% 100ML VIAL (Q9967) As Ordered (01:14)
[2018-03-08 01:19] LABS: INFLUENZA A AMPLIFICATION NEGATIVE (NEGATIVE); INFLUENZA B AMPLIFICATION NEGATIVE (NEGATIVE)
[2018-03-08] MEDS ORDERED: PROPOFOL 1,000 MG/100 ML VIAL As Ordered (02:16)
[2018-03-08] MEDS ORDERED: NS 1,000 ML IV ×2 (02:30→03:00)
[2018-03-08] MEDS: IPRATROPIUM 0.5MG/ALBUTEROL 2.5MG INH SOL UD 3ML (DUONEB)(J7620) NEB ×3 (02:55→12:02)
[2018-03-08] MEDS: NS 1,000 ML IV ×3 (03:09→17:43)
[2018-03-08] MEDS: ACETAMINOPHEN 325 MG TAB PO (03:17)
[2018-03-08] MEDS: PERCOCET 5MG/325MG TAB PO (04:42)
[2018-03-08] MEDS: VANCOMYCIN HCL 750 MG, VIAL MATE ADAPTER 1 EACH in D5W 250 ML IV ×3 (04:42→19:35)
[2018-03-08] MEDS: LEVOTHYROXINE 88MCG TABLET (0.088 MG) PO (05:52)
[2018-03-08] MEDS: HEPARIN SOD (PORCINE) 5000 UNITS/ML VIAL SC ×3 (05:52→21:16)
[2018-03-08] MEDS: CEFEPIME HCL 1 GM in D5W MINI-BAG PLUS 50 ML IV ×2 (05:52→17:44)
[2018-03-08] MEDS ORDERED: INFLUENZA QUADRIVALENT PF VACCINE 0.5ML SYRINGE (90686) IM (07:00)
[2018-03-08] MEDS: CYANOCOBALAMIN 500 MCG TAB PO (09:38)
[2018-03-08] MEDS: ASPIRIN 81 MG ENTERIC TAB PO (09:39)
[2018-03-08] MEDS: SENOKOT S TAB PO (09:39)
[2018-03-08] MEDS: TAMSULOSIN 0.4 MG CAP PO (09:39)
[2018-03-08] MEDS: guaiFENesin ER 600 MG TAB PO ×2 (09:39→20:21)
[2018-03-08] MEDS ORDERED: ALBUTEROL SULFATE 2.5 MG/0.5 ML INH NEB SOLN NEB (12:00)
[2018-03-08] MEDS: ALBUTEROL SULFATE 2.5 MG/0.5 ML INH NEB SOLN NEB ×3 (15:29→23:47)
[2018-03-08] MEDS ORDERED: SODIUM CHLORIDE 0.9% 1000ML IV (17:45)
[2018-03-08 19:36] LABS: VANCOMYCIN LEVEL TROUGH 12.6 UG/ML (10.0-20.0)
[2018-03-09] MEDS: VANCOMYCIN HCL 750 MG, VIAL MATE ADAPTER 1 EACH in D5W 250 ML IV ×3 (03:56→20:24)
[2018-03-09] MEDS: NS 1,000 ML IV (03:56)
[2018-03-09] MEDS: ALBUTEROL SULFATE 2.5 MG/0.5 ML INH NEB SOLN NEB ×4 (04:13→19:49)
[2018-03-09 04:24] LABS: HEMATOCRIT 28.6 % (42.0-52.0); HEMOGLOBIN 9.2 g/dl (13.5-17.5); MEAN CORPUSCULAR HEMOGLOBIN 29.9 pg (27.0-33.0); MEAN CORPUSCULAR HGB CONC 32.2 g/dl (32.0-36.5); MEAN CORPUSCULAR VOLUME 92.9 fl (80.0-96.0); RED BLOOD COUNT 3.08 10^6/uL (4.30-6.10)
[2018-03-09 04:42] LABS: ANION GAP 7 MEQ/L (8-16); BLOOD UREA NITROGEN 17 MG/DL (7-18); CALCIUM LEVEL 7.7 MG/DL (8.8-10.2); CARBON DIOXIDE LEVEL 27 MEQ/L (21-32); CHLORIDE LEVEL 107 MEQ/L (98-107); CREATININE FOR GFR 0.73 MG/DL (0.70-1.30); GLOMERULAR FILTRATION RATE > 60.0 (>49); GLUCOSE, FASTING 93 MG/DL (70-100); POTASSIUM SERUM 3.6 MEQ/L (3.5-5.1); SODIUM LEVEL 141 MEQ/L (136-145)
[2018-03-09 04:48] LABS: PLATELET COUNT, AUTOMATED 80 10^3/uL (150-450)
[2018-03-09 04:49] LABS: IMMATURE PLATELET FRACTION % 2.1 % (0.0-10.9)
[2018-03-09] MEDS: CEFEPIME HCL 1 GM in D5W MINI-BAG PLUS 50 ML IV ×2 (05:45→16:42)
[2018-03-09] MEDS: LEVOTHYROXINE 88MCG TABLET (0.088 MG) PO (05:45)
[2018-03-09] MEDS: HEPARIN SOD (PORCINE) 5000 UNITS/ML VIAL SC ×3 (05:46→20:33)
[2018-03-09 06:14] LABS: ABG BASE EXCESS 0.3 (-2.0-2.0); ABG HCO3 26.1 MEQ/L (22.0-26.0); ABG O2 SATURATION 97.2 % (95.0-99.0); ABG PARTIAL PRESSURE CO2 47.7 mmHg (35.0-45.0); ABG PARTIAL PRESSURE O2 91.9 mmHg (75.0-100.0); ABG STANDARD HCO3 24.7 MEQ/L (22.0-26.0); ABG TOTAL CO2 27.6 MEQ/L (23.0-31.0); ABG pH (ARTERIAL) 7.356 UNITS (7.350-7.450)
[2018-03-09] MEDS: ACETAMINOPHEN TAB 650MG DOSE (2X325MG) PO ×2 (10:03→20:23)
[2018-03-09] MEDS: ASPIRIN 81 MG ENTERIC TAB PO (10:03)
[2018-03-09] MEDS: guaiFENesin ER 600 MG TAB PO ×2 (10:03→20:23)
[2018-03-09] MEDS: CYANOCOBALAMIN 500 MCG TAB PO (10:03)
[2018-03-09] MEDS: TAMSULOSIN 0.4 MG CAP PO (10:03)
[2018-03-09 10:33] LABS: INR 1.71; PARTIAL THROMBOPLASTIN TIME 36.9 SECONDS (25.4-37.6); PROTHROMBIN TIME 20.4 SECONDS (12.1-14.4)
[2018-03-09 15:54] LABS: PH BODY FLUID 7.515 UNITS (NOT ESTABLISHED); SOURCE, BODY FLUID pH PLEURAL
[2018-03-09 16:19] LABS: BF MONONUCLEAR CELL % 80.3 % (0-0); BF POLYMORPHONUCLEAR CELL % 19.7 % (0-0); RBC BODY FLUID 10 10^3/uL (<2); WBC BODY FLUID 781 /uL (0-10)
[2018-03-09 16:20] LABS: SOURCE, BODY FLUID PLEURAL
[2018-03-09 16:21] LABS: APPEARANCE, BODY FLUID HAZY (CLEAR); BF DIFF IF INDICATED? YES (NO); PLEURAL FL COLOR YELLOW (COLORLESS)
[2018-03-09 16:33] LABS: AMYLASE, BODY FLUID 11 U/L (NOT ESTABLISHED); CHOLESTEROL, BODY FLUID < 50 MG/DL (NOT ESTABLISHED); LDH, BODY FLUID 93 U/L (NOT ESTABLISHED); SOURCE, BODY FLUID AMYLASE PLEURAL; SOURCE, BODY FLUID CHOL PLEURAL; SOURCE, BODY FLUID LDH PLEURAL; SOURCE, BODY FLUID TOT PROTEIN PLEURAL; TOTAL PROTEIN, BODY FLUID 3.3 G/DL (NOT ESTABLISHED)
[2018-03-09 20:14] LABS: SOURCE, BODY FLUID GLUCOSE PLEURAL
[2018-03-10] MEDS: ALBUTEROL SULFATE 2.5 MG/0.5 ML INH NEB SOLN NEB ×7 (00:02→23:22)
[2018-03-10 05:03] LABS: HEMATOCRIT 26.7 % (42.0-52.0); HEMOGLOBIN 8.8 g/dl (13.5-17.5); MEAN CORPUSCULAR HEMOGLOBIN 30.6 pg (27.0-33.0); MEAN CORPUSCULAR VOLUME 92.7 fl (80.0-96.0); RED BLOOD COUNT 2.88 10^6/uL (4.30-6.10); RED CELL DISTRIBUTION WIDTH 14.9 % (11.5-14.5); WHITE BLOOD COUNT 7.5 10^3/uL (4.0-10.0)
[2018-03-10 05:06] LABS: PLATELET COUNT, AUTOMATED 79 10^3/uL (150-450)
[2018-03-10 05:07] LABS: IMMATURE PLATELET FRACTION % 2.4 % (0.0-10.9)
[2018-03-10 05:16] LABS: ANION GAP 6 MEQ/L (8-16); BLOOD UREA NITROGEN 21 MG/DL (7-18); CALCIUM LEVEL 7.7 MG/DL (8.8-10.2); CARBON DIOXIDE LEVEL 28 MEQ/L (21-32); CHLORIDE LEVEL 105 MEQ/L (98-107); CREATININE FOR GFR 0.69 MG/DL (0.70-1.30); GLOMERULAR FILTRATION RATE > 60.0 (>49); GLUCOSE, FASTING 97 MG/DL (70-100); POTASSIUM SERUM 3.4 MEQ/L (3.5-5.1); SODIUM LEVEL 139 MEQ/L (136-145)
[2018-03-10] MEDS: LEVOTHYROXINE 88MCG TABLET (0.088 MG) PO (05:45)
[2018-03-10] MEDS: CEFEPIME HCL 1 GM in D5W MINI-BAG PLUS 50 ML IV ×2 (05:45→17:00)
[2018-03-10] MEDS: VANCOMYCIN HCL 750 MG, VIAL MATE ADAPTER 1 EACH in D5W 250 ML IV ×3 (05:48→20:26)
[2018-03-10] MEDS: HEPARIN SOD (PORCINE) 5000 UNITS/ML VIAL SC (05:50)
[2018-03-10] MEDS: ASPIRIN 81 MG ENTERIC TAB PO (08:11)
[2018-03-10] MEDS: POTASSIUM CHLORIDE 10 MEQ SR TABLET PO (08:12)
[2018-03-10] MEDS: TAMSULOSIN 0.4 MG CAP PO (08:12)
[2018-03-10] MEDS: guaiFENesin ER 600 MG TAB PO ×2 (08:13→20:26)
[2018-03-10] MEDS: CYANOCOBALAMIN 500 MCG TAB PO (08:30)
[2018-03-10 09:51] LABS: LDH LACTATE DEHYDROGENASE 147 U/L (87-241)
[2018-03-10] MEDS ORDERED: LIDOCAINE 2% INJ 100 MG/5 ML SDV (FOR ANES.) As Ordered (11:07)
[2018-03-10] MEDS ORDERED: PROPOFOL 200 MG/20 ML VIAL As Ordered (11:07)
[2018-03-10] MEDS ORDERED: fentaNYL 100 MCG/2 ML INJECTION (J3010) As Ordered (11:08)
[2018-03-10] MEDS ORDERED: MIDAZOLAM INJ 2 MG/2 ML VIAL (J2250) As Ordered (11:08)
[2018-03-10 11:40] LABS: VANCOMYCIN LEVEL TROUGH 18.5 UG/ML (10.0-20.0)
[2018-03-10] MEDS ORDERED: ROCURONIUM BROMIDE 50 MG/5 ML VIAL As Ordered (12:58)
[2018-03-10] MEDS: LIDOCAINE 1% MDV 20ML VIAL As Ordered (13:01)
[2018-03-10 13:20] LABS: TOTAL PROTEIN 6.3 GM/DL (6.4-8.2)
[2018-03-10] MEDS ORDERED: ePHEDrine SULFATE 25 MG/5 ML(5MG/ML) SYRINGE As Ordered ×2 (13:29)
[2018-03-10] MEDS ORDERED: SUCCINYLCHOLINE 100 MG/5 ML SYRINGE (J0330) As Ordered (13:29)
[2018-03-10] MEDS ORDERED: PHENYLephrine HCL 500 MCG/5 ML (100MCG/ML) SYRINGE (J2370) As Ordered (13:29)
[2018-03-10] MEDS: LIDOCAINE VISCOUS 2% SOLN 15ML UDC As Ordered (13:34)
[2018-03-10] MEDS: CETACAINE SPRAY 5GM As Ordered (13:34)
[2018-03-10] MEDS ORDERED: GLYCOPYRROLATE INJ 0.2 MG/ML 2 ML VIAL As Ordered (13:50)
[2018-03-10] MEDS ORDERED: NEOSTIGMINE 10 MG/10 ML VIAL (J2710) As Ordered (13:50)
[2018-03-10] MEDS: FONDAPARINUX SODIUM 2.5 MG/0.5 ML SYR (J1652 PER 0.5MG) SC (15:54)
[2018-03-10] MEDS: ACETAMINOPHEN TAB 650MG DOSE (2X325MG) PO (20:25)
[2018-03-11] MEDS: ALBUTEROL SULFATE 2.5 MG/0.5 ML INH NEB SOLN NEB ×5 (03:11→21:29)
[2018-03-11] MEDS: CEFEPIME HCL 1 GM in D5W MINI-BAG PLUS 50 ML IV ×2 (04:51→17:24)
[2018-03-11] MEDS: LEVOTHYROXINE 88MCG TABLET (0.088 MG) PO (04:51)
[2018-03-11] MEDS: VANCOMYCIN HCL 750 MG, VIAL MATE ADAPTER 1 EACH in D5W 250 ML IV ×3 (04:51→21:01)
[2018-03-11 05:16] LABS: HEMATOCRIT 28.9 % (42.0-52.0); HEMOGLOBIN 9.2 g/dl (13.5-17.5); MEAN CORPUSCULAR HEMOGLOBIN 30.7 pg (27.0-33.0); MEAN CORPUSCULAR HGB CONC 31.8 g/dl (32.0-36.5); MEAN CORPUSCULAR VOLUME 96.3 fl (80.0-96.0); RED CELL DISTRIBUTION WIDTH 14.6 % (11.5-14.5); WHITE BLOOD COUNT 4.7 10^3/uL (4.0-10.0)
[2018-03-11 05:18] LABS: IMMATURE PLATELET FRACTION % 4.7 % (0.0-10.9); PLATELET COUNT, AUTOMATED 94 10^3/uL (150-450)
[2018-03-11 05:31] LABS: ANION GAP 8 MEQ/L (8-16); BLOOD UREA NITROGEN 26 MG/DL (7-18); CALCIUM LEVEL 8.4 MG/DL (8.8-10.2); CARBON DIOXIDE LEVEL 28 MEQ/L (21-32); CHLORIDE LEVEL 104 MEQ/L (98-107); CREATININE FOR GFR 0.89 MG/DL (0.70-1.30); GLOMERULAR FILTRATION RATE > 60.0 (>49); GLUCOSE, FASTING 144 MG/DL (70-100); POTASSIUM SERUM 3.9 MEQ/L (3.5-5.1); SODIUM LEVEL 140 MEQ/L (136-145)
[2018-03-11] MEDS: SODIUM CHLORIDE HYPERTONIC 3% 15ML NEB SOL INH ×4 (08:00→21:30)
[2018-03-11] MEDS: guaiFENesin ER 600 MG TAB PO ×2 (08:45→20:57)
[2018-03-11] MEDS: CYANOCOBALAMIN 500 MCG TAB PO (08:45)
[2018-03-11] MEDS: ASPIRIN 81 MG ENTERIC TAB PO (08:45)
[2018-03-11] MEDS: FONDAPARINUX SODIUM 2.5 MG/0.5 ML SYR (J1652 PER 0.5MG) SC (08:45)
[2018-03-11] MEDS: TAMSULOSIN 0.4 MG CAP PO (08:45)
[2018-03-11] MEDS: methylPREDNISolone INJ 125 MG/2 ML VIAL (J2930) IV ×2 (11:13→20:59)
[2018-03-12 00:10] LABS: BODY FLUID CULTURE Not Indicated (.); LEGIONELLA ANTIGEN URINE Negative (Negative); ORGANISM ID Not indicated. (.); SPECIMEN SOURCE Urine (.); URINE STREP PNEUMONIAE ANTIGEN Negative (Negative)
[2018-03-12] MEDS: VANCOMYCIN HCL 750 MG, VIAL MATE ADAPTER 1 EACH in D5W 250 ML IV ×3 (03:32→19:56)
[2018-03-12] MEDS: SODIUM CHLORIDE HYPERTONIC 3% 15ML NEB SOL INH ×6 (04:00→20:05)
[2018-03-12] MEDS: ALBUTEROL SULFATE 2.5 MG/0.5 ML INH NEB SOLN NEB ×6 (04:00→20:05)
[2018-03-12] MEDS: CEFEPIME HCL 1 GM in D5W MINI-BAG PLUS 50 ML IV ×2 (04:58→17:02)
[2018-03-12] MEDS: LEVOTHYROXINE 88MCG TABLET (0.088 MG) PO (05:30)
[2018-03-12 06:03] LABS: HEMATOCRIT 28.3 % (42.0-52.0); HEMOGLOBIN 9.2 g/dl (13.5-17.5); MEAN CORPUSCULAR HEMOGLOBIN 30.5 pg (27.0-33.0); MEAN CORPUSCULAR HGB CONC 32.5 g/dl (32.0-36.5); MEAN CORPUSCULAR VOLUME 93.7 fl (80.0-96.0); PLATELET COUNT, AUTOMATED 111 10^3/uL (150-450); RED BLOOD COUNT 3.02 10^6/uL (4.30-6.10); RED CELL DISTRIBUTION WIDTH 14.5 % (11.5-14.5); WHITE BLOOD COUNT 7.5 10^3/uL (4.0-10.0)
[2018-03-12 06:25] LABS: ANION GAP 4 MEQ/L (8-16); BLOOD UREA NITROGEN 32 MG/DL (7-18); CALCIUM LEVEL 8.3 MG/DL (8.8-10.2); CARBON DIOXIDE LEVEL 29 MEQ/L (21-32); CHLORIDE LEVEL 104 MEQ/L (98-107); CREATININE FOR GFR 0.81 MG/DL (0.70-1.30); GLOMERULAR FILTRATION RATE > 60.0 (>49); GLUCOSE, FASTING 129 MG/DL (70-100); POTASSIUM SERUM 4.4 MEQ/L (3.5-5.1); SODIUM LEVEL 137 MEQ/L (136-145)
[2018-03-12] MEDS: methylPREDNISolone INJ 125 MG/2 ML VIAL (J2930) IV ×2 (09:21→21:37)
[2018-03-12] MEDS: CYANOCOBALAMIN 500 MCG TAB PO (09:21)
[2018-03-12] MEDS: TAMSULOSIN 0.4 MG CAP PO (09:21)
[2018-03-12] MEDS: guaiFENesin ER 600 MG TAB PO ×2 (09:21→21:37)
[2018-03-12] MEDS: ASPIRIN 81 MG ENTERIC TAB PO (09:21)
[2018-03-12] MEDS: FONDAPARINUX SODIUM 2.5 MG/0.5 ML SYR (J1652 PER 0.5MG) SC (09:22)
[2018-03-13 00:06] LABS: HEPARIN INDUCED PLATELET ABY 0.317 OD (0.000-0.400)
[2018-03-13] MEDS: ALBUTEROL SULFATE 2.5 MG/0.5 ML INH NEB SOLN NEB ×5 (00:48→15:38)
[2018-03-13] MEDS: SODIUM CHLORIDE HYPERTONIC 3% 15ML NEB SOL INH ×5 (00:48→15:38)
[2018-03-13] MEDS: VANCOMYCIN HCL 750 MG, VIAL MATE ADAPTER 1 EACH in D5W 250 ML IV ×2 (03:46→12:00)
[2018-03-13] MEDS: CEFEPIME HCL 1 GM in D5W MINI-BAG PLUS 50 ML IV (05:06)
[2018-03-13] MEDS: LEVOTHYROXINE 88MCG TABLET (0.088 MG) PO (05:58)
[2018-03-13 06:49] LABS: HEMOGLOBIN 9.4 g/dl (13.5-17.5); MEAN CORPUSCULAR HEMOGLOBIN 29.7 pg (27.0-33.0); MEAN CORPUSCULAR HGB CONC 32.4 g/dl (32.0-36.5); MEAN CORPUSCULAR VOLUME 91.5 fl (80.0-96.0); PLATELET COUNT, AUTOMATED 136 10^3/uL (150-450); RED BLOOD COUNT 3.17 10^6/uL (4.30-6.10); RED CELL DISTRIBUTION WIDTH 14.4 % (11.5-14.5)
[2018-03-13 07:11] LABS: ANION GAP 7 MEQ/L (8-16); BLOOD UREA NITROGEN 36 MG/DL (7-18); CALCIUM LEVEL 8.3 MG/DL (8.8-10.2); CARBON DIOXIDE LEVEL 26 MEQ/L (21-32); CHLORIDE LEVEL 106 MEQ/L (98-107); CREATININE FOR GFR 0.86 MG/DL (0.70-1.30); GLOMERULAR FILTRATION RATE > 60.0 (>49); GLUCOSE, FASTING 116 MG/DL (70-100); POTASSIUM SERUM 4.2 MEQ/L (3.5-5.1); SODIUM LEVEL 139 MEQ/L (136-145)
[2018-03-13] MEDS: CYANOCOBALAMIN 500 MCG TAB PO (09:23)
[2018-03-13] MEDS: ASPIRIN 81 MG ENTERIC TAB PO (09:23)
[2018-03-13] MEDS: methylPREDNISolone INJ 125 MG/2 ML VIAL (J2930) IV (09:23)
[2018-03-13] MEDS: guaiFENesin ER 600 MG TAB PO (09:23)
[2018-03-13] MEDS: TAMSULOSIN 0.4 MG CAP PO (09:23)
[2018-03-13] MEDS: FONDAPARINUX SODIUM 2.5 MG/0.5 ML SYR (J1652 PER 0.5MG) SC (09:23)
== END 2018-03-13 16:11 | disposition home or self-care (01) | DRG 163 ==
LOC: M MSPAV 03-11 16:05 → M ED 23:41 → M ED INP 03-08 02:07 → M ICU 03-08 04:03
PROC: 0BCD8ZZ Extirpation of Matter from Right Middle Lung Lobe, Via Natural or Artificial Opening Endoscopic (ICD-10-PCS; principal; 2018-03-10 12:45)
PROC: 0BBC8ZX Excision of Right Upper Lung Lobe, Via Natural or Artificial Opening Endoscopic, Diagnostic (ICD-10-PCS; 2018-03-10 12:45)
PROC: 0BCF8ZZ Extirpation of Matter from Right Lower Lung Lobe, Via Natural or Artificial Opening Endoscopic (ICD-10-PCS; 2018-03-10 12:45)
PROC: 0W9B3ZX Drainage of Left Pleural Cavity, Percutaneous Approach, Diagnostic (ICD-10-PCS; 2018-03-10 13:09)
DX: J96.01 Acute respiratory failure with hypoxia (principal); J18.9 Pneumonia, unspecified organism; J90 Pleural effusion, not elsewhere classified; J98.11 Atelectasis; N39.0 Urinary tract infection, site not specified; I48.91 Unspecified atrial fibrillation; N20.0 Calculus of kidney; E03.9 Hypothyroidism, unspecified; E87.6 Hypokalemia; G47.33 Obstructive sleep apnea (adult) (pediatric); Z85.118 Personal history of other malignant neoplasm of bronchus and lung; Z92.3 Personal history of irradiation; Z92.21 Personal history of antineoplastic chemotherapy; Z87.891 Personal history of nicotine dependence; Z79.82 Long term (current) use of aspirin; Z79.899 Other long term (current) drug therapy; Z95.0 Presence of cardiac pacemaker; Z88.8 Allergy status to other drugs, medicaments and biological substances

== ENCOUNTER → 2018-04-03 | Outpatient (REF) | payer OTHER ==
[2018-04-03 14:42] LABS: ANION GAP 6 MEQ/L (8-16); BLOOD UREA NITROGEN 16 MG/DL (7-18); CALCIUM LEVEL 7.3 MG/DL (8.8-10.2); CARBON DIOXIDE LEVEL 32 MEQ/L (21-32); CHLORIDE LEVEL 106 MEQ/L (98-107); CREATININE FOR GFR 0.61 MG/DL (0.70-1.30); GLOMERULAR FILTRATION RATE > 60.0 (>49); GLUCOSE, FASTING 61 MG/DL (70-100); POTASSIUM SERUM 4.4 MEQ/L (3.5-5.1); SODIUM LEVEL 144 MEQ/L (136-145)
== END ==
LOC: M LAB REF 13:49
DX: R06.02 Shortness of breath (principal)
CPT/HCPCS: 80048

== ENCOUNTER → 2018-04-03 | Outpatient (CLI) | payer OTHER | LOC: M SMT 10:15 | DX: J44.9 Chronic obstructive pulmonary disease, unspecified (principal) | CPT/HCPCS: 71046 ==

== ENCOUNTER → 2018-04-21 | Outpatient (CLI) | payer OTHER ==
[2018-04-21 14:39] LABS: ANION GAP 7 MEQ/L (8-16); BLOOD UREA NITROGEN 22 MG/DL (7-18); CALCIUM LEVEL 8.1 MG/DL (8.8-10.2); CARBON DIOXIDE LEVEL 32 MEQ/L (21-32); CHLORIDE LEVEL 105 MEQ/L (98-107); CREATININE FOR GFR 0.76 MG/DL (0.70-1.30); GLOMERULAR FILTRATION RATE > 60.0 (>49); GLUCOSE, FASTING 87 MG/DL (70-100); POTASSIUM SERUM 4.1 MEQ/L (3.5-5.1); SODIUM LEVEL 144 MEQ/L (136-145)
== END ==
LOC: M SMT 11:05
DX: J90 Pleural effusion, not elsewhere classified (principal); I51.7 Cardiomegaly; R91.8 Other nonspecific abnormal finding of lung field; Z51.81 Encounter for therapeutic drug level monitoring; Z79.899 Other long term (current) drug therapy; Z95.0 Presence of cardiac pacemaker
CPT/HCPCS: 80048

== ENCOUNTER → 2018-04-29 | Outpatient (CLI) | payer OTHER | LOC: M RAD 08:56 | DX: S09.90XA Unspecified injury of head, initial encounter (principal); W19.XXXA Unspecified fall, initial encounter; Y92.9 Unspecified place or not applicable; Y93.9 Activity, unspecified; Y99.9 Unspecified external cause status | CPT/HCPCS: 70450 ==

== ENCOUNTER 2018-05-27 10:10 | Inpatient (IN) | payer OTHER ==
[2018-05-27 10:51] LABS: BASO # 0.1 10^3/uL (0.0-0.2); BASO % 1.1 % (0.0-1.0); EOS # 0.2 10^3/uL (0.0-0.50); EOS % 3.5 % (0.0-3.0); HEMATOCRIT 30.7 % (42.0-52.0); HEMOGLOBIN 9.9 g/dl (13.5-17.5); IMMATURE GRANULOCYTE % 0.4 % (0-3.0); LYMPH # 0.6 10^3/uL (1.5-4.5); LYMPH % 13.2 % (24.0-44.0); MEAN CORPUSCULAR HGB CONC 32.2 g/dl (32.0-36.5); MONO # 0.3 10^3/uL (0.0-0.8); MONO % 7.5 % (0.0-5.0); NEUTROPHILS # 3.4 10^3/uL (1.8-7.7); NEUTROPHILS % 74.3 % (36.0-66.0); PLATELET COUNT, AUTOMATED 118 10^3/uL (150-450); RED CELL DISTRIBUTION WIDTH 14.8 % (11.5-14.5); WHITE BLOOD COUNT 4.6 10^3/uL (4.0-10.0)
[2018-05-27 10:58] LABS: PROTHROMBIN TIME 15.4 SECONDS (12.1-14.4)
[2018-05-27 11:13] LABS: ALBUMIN 2.7 GM/DL (3.2-5.2); ALKALINE PHOSPHATASE 40 U/L (45-117); ALT/SGPT 12 U/L (12-78); ANION GAP 5 MEQ/L (8-16); AST/SGOT 19 U/L (7-37); BILIRUBIN,DIRECT 0.1 MG/DL (0.0-0.2); BILIRUBIN,TOTAL 0.5 MG/DL (0.2-1.0); BLOOD UREA NITROGEN 12 MG/DL (7-18); CARBON DIOXIDE LEVEL 30 MEQ/L (21-32); CHLORIDE LEVEL 107 MEQ/L (98-107); CPK CREATINE PHOSPHOKINASE 100 U/L (39-308); CREATININE FOR GFR 0.68 MG/DL (0.70-1.30); GLOMERULAR FILTRATION RATE > 60.0 (>49); GLUCOSE, FASTING 73 MG/DL (70-100); NT-PRO BNP 761 PG/ML (<125); POTASSIUM SERUM 3.7 MEQ/L (3.5-5.1); SODIUM LEVEL 142 MEQ/L (136-145); THYROID STIMULATING HORMONE 0.646 uIU/ML (0.358-3.740); TOTAL PROTEIN 7.2 GM/DL (6.4-8.2); TROPONIN I < 0.02 NG/ML (< 0.10)
[2018-05-27] MEDS: IPRATROPIUM 0.5MG/ALBUTEROL 2.5MG INH SOL UD 3ML (DUONEB)(J7620) NEB (14:55)
[2018-05-27] MEDS ORDERED: FLUTICASONE PROP 0.05% NASAL SPRAY 16 GM (FLONASE) (16:45)
[2018-05-27] MEDS ORDERED: ISOVUE-370 76% 100ML VIAL (Q9967) As Ordered (17:09)
[2018-05-27] MEDS: FUROSEMIDE 40 MG/4 ML VIAL (J1940) IV ×2 (17:38→23:35)
[2018-05-27] MEDS: guaiFENesin ER 600 MG TAB PO (20:16)
[2018-05-28] MEDS: LEVOTHYROXINE 88MCG TABLET (0.088 MG) PO (05:53)
[2018-05-28 08:17] LABS: LDH LACTATE DEHYDROGENASE 258 U/L (87-241); TOTAL PROTEIN 7.2 GM/DL (6.4-8.2)
[2018-05-28] MEDS: ASPIRIN 81 MG ENTERIC TAB PO (08:19)
[2018-05-28] MEDS: guaiFENesin ER 600 MG TAB PO ×2 (08:19→20:03)
[2018-05-28] MEDS: MAGNESIUM OXIDE 400 MG TAB (MAG-OX) PO (08:19)
[2018-05-28] MEDS: POTASSIUM CHLORIDE 10 MEQ SR TABLET PO (08:19)
[2018-05-28] MEDS: FUROSEMIDE 40 MG/4 ML VIAL (J1940) IV ×3 (08:20→20:03)
[2018-05-28 08:26] LABS: HEMATOCRIT 33.6 % (42.0-52.0); MEAN CORPUSCULAR HEMOGLOBIN 30.1 pg (27.0-33.0); MEAN CORPUSCULAR HGB CONC 32.7 g/dl (32.0-36.5); MEAN CORPUSCULAR VOLUME 91.8 fl (80.0-96.0); PLATELET COUNT, AUTOMATED 157 10^3/uL (150-450); RED BLOOD COUNT 3.66 10^6/uL (4.30-6.10); RED CELL DISTRIBUTION WIDTH 14.9 % (11.5-14.5); WHITE BLOOD COUNT 5.8 10^3/uL (4.0-10.0)
[2018-05-28 10:47] LABS: ANION GAP 6 MEQ/L (8-16); BLOOD UREA NITROGEN 12 MG/DL (7-18); CALCIUM LEVEL 8.5 MG/DL (8.8-10.2); CARBON DIOXIDE LEVEL 35 MEQ/L (21-32); CHLORIDE LEVEL 101 MEQ/L (98-107); CPK CREATINE PHOSPHOKINASE 131 U/L (39-308); CREATININE FOR GFR 0.73 MG/DL (0.70-1.30); GLOMERULAR FILTRATION RATE > 60.0 (>49); GLUCOSE, FASTING 80 MG/DL (70-100); MAGNESIUM LEVEL 1.9 MG/DL (1.8-2.4); MB/CK RELATIVE INDEX 1.15 (< OR =4); NT-PRO BNP 865 PG/ML (<125); POTASSIUM SERUM 3.5 MEQ/L (3.5-5.1); SODIUM LEVEL 142 MEQ/L (136-145); TROPONIN I < 0.02 NG/ML (< 0.10)
[2018-05-28 15:57] LABS: PH BODY FLUID 7.588 UNITS (NOT ESTABLISHED); SOURCE, BODY FLUID pH PLEURAL
[2018-05-28] MEDS: ACETAMINOPHEN TAB 650MG DOSE (2X325MG) PO (16:21)
[2018-05-28 16:28] LABS: AMYLASE, BODY FLUID 15 U/L (NOT ESTABLISHED); CHOLESTEROL, BODY FLUID 55 MG/DL (NOT ESTABLISHED); LDH, BODY FLUID 115 U/L (NOT ESTABLISHED); SOURCE, BODY FLUID ALBUMIN PLEURAL; SOURCE, BODY FLUID AMYLASE PLEURAL; SOURCE, BODY FLUID CHOL PLEURAL; SOURCE, BODY FLUID GLUCOSE PLEURAL; SOURCE, BODY FLUID LDH PLEURAL; SOURCE, BODY FLUID TOT PROTEIN PLEURAL; SOURCE, BODY FLUID TRIG PLEURAL; TOTAL PROTEIN, BODY FLUID 3.4 G/DL (NOT ESTABLISHED); TRIGLYCERIDE, BODY FLUID 31 MG/DL (NOT ESTABLISHED)
[2018-05-28 16:29] LABS: BF MONONUCLEAR CELL % 89.8 % (0-0); BF POLYMORPHONUCLEAR CELL % 10.2 % (0-0); RBC BODY FLUID 5 10^3/uL (<2); WBC BODY FLUID 684 /uL (0-10)
[2018-05-28 16:30] LABS: APPEARANCE, BODY FLUID HAZY (CLEAR); BF DIFF IF INDICATED? YES (NO); PLEURAL FL COLOR YELLOW (COLORLESS); SOURCE, BODY FLUID PLEURAL
[2018-05-29] MEDS: FUROSEMIDE 40 MG/4 ML VIAL (J1940) IV ×2 (01:48→08:34)
[2018-05-29] MEDS: LEVOTHYROXINE 88MCG TABLET (0.088 MG) PO (06:01)
[2018-05-29 07:17] LABS: HEMOGLOBIN 10.8 g/dl (13.5-17.5); MEAN CORPUSCULAR HEMOGLOBIN 30.1 pg (27.0-33.0); MEAN CORPUSCULAR HGB CONC 33.8 g/dl (32.0-36.5); MEAN CORPUSCULAR VOLUME 89.1 fl (80.0-96.0); PLATELET COUNT, AUTOMATED 143 10^3/uL (150-450); RED BLOOD COUNT 3.59 10^6/uL (4.30-6.10); RED CELL DISTRIBUTION WIDTH 14.8 % (11.5-14.5); WHITE BLOOD COUNT 5.6 10^3/uL (4.0-10.0)
[2018-05-29 08:02] LABS: ANION GAP 5 MEQ/L (8-16); BLOOD UREA NITROGEN 19 MG/DL (7-18); CALCIUM LEVEL 8.7 MG/DL (8.8-10.2); CARBON DIOXIDE LEVEL 36 MEQ/L (21-32); CHLORIDE LEVEL 100 MEQ/L (98-107); CREATININE FOR GFR 0.76 MG/DL (0.70-1.30); GLOMERULAR FILTRATION RATE > 60.0 (>49); GLUCOSE, FASTING 86 MG/DL (70-100); MAGNESIUM LEVEL 1.9 MG/DL (1.8-2.4); NT-PRO BNP 678 PG/ML (<125); POTASSIUM SERUM 3.2 MEQ/L (3.5-5.1); SODIUM LEVEL 141 MEQ/L (136-145)
[2018-05-29] MEDS: ASPIRIN 81 MG ENTERIC TAB PO (08:33)
[2018-05-29] MEDS: SPIRONOLACTONE 25 MG TAB PO (08:33)
[2018-05-29] MEDS: MAGNESIUM OXIDE 400 MG TAB (MAG-OX) PO (08:33)
[2018-05-29] MEDS: guaiFENesin ER 600 MG TAB PO (08:33)
[2018-05-29] MEDS: POTASSIUM CHLORIDE 10 MEQ SR TABLET PO ×2 (08:34→12:03)
[2018-05-29] MEDS: MAG SULF 1GM/100ML (MAG RUN) 1 GM in APPROPRIATE DILUENT 1 EA IV (09:43)
== END 2018-05-29 12:13 | disposition home or self-care (01) | DRG 188 ==
LOC: M ED 10:10 → M ED INP 16:30 → M MSPAV 18:23
PROC: 0W9B3ZZ Drainage of Left Pleural Cavity, Percutaneous Approach (ICD-10-PCS; principal; 2018-05-28)
DX: J90 Pleural effusion, not elsewhere classified (principal); I48.91 Unspecified atrial fibrillation; G47.33 Obstructive sleep apnea (adult) (pediatric); J44.9 Chronic obstructive pulmonary disease, unspecified; E03.9 Hypothyroidism, unspecified; I27.29 Other secondary pulmonary hypertension; J98.4 Other disorders of lung; Z92.21 Personal history of antineoplastic chemotherapy; I50.9 Heart failure, unspecified; I50.810 Right heart failure, unspecified; Z92.3 Personal history of irradiation; Z85.118 Personal history of other malignant neoplasm of bronchus and lung; Z95.0 Presence of cardiac pacemaker; Z90.49 Acquired absence of other specified parts of digestive tract; Z87.891 Personal history of nicotine dependence; Z79.82 Long term (current) use of aspirin; Z79.899 Other long term (current) drug therapy; Z88.8 Allergy status to other drugs, medicaments and biological substances

== ENCOUNTER → 2018-06-02 | Outpatient (REF) | payer OTHER ==
[~2018-06-02] MED LIST changes: +ACET500T15 PO; -ACET50TAOT PO; -DOXY-278 PO; +DOXY-350 PO; +FLOM0.4C39 PO; +FURO40TA2 PO; +NORCOTAB PO; +PRED10TA2 PO; -PROP1TAB29 PO; +PROP20TA72 PO; +SPIR-10 PO; +ZYRT10CA5 PO; -ZYRT10TA2 PO
== END ==
LOC: M SFHCLERA 10:19
PROVIDERS: ATTEND Family Medicine
DX: Z53.9 Procedure and treatment not carried out, unspecified reason (principal)

== ENCOUNTER → 2018-06-25 | Outpatient (CLI) | payer OTHER ==
[~2018-06-25] MED LIST changes: +LASI40TA9 PO; +LEVA1TAB2 PO
--- NOTE | 2018-06-26 01:59 | REP ---
Clinical: Productive cough. Technique: PA and lateral. Comparison: 05/28/2018. Findings: Volume loss and pleuroparenchymal changes involving the right hemithorax including areas of consolidation and pleural effusion/thickening remain essentially stable. The left hemithorax is relatively well aerated and clear although a small residual left pleural effusion is noted and improved. Visualized portions of the cardiac silhouette are within normal limits. Skeletal structures stable. Impression: 1. Significant pleuroparenchymal changes involving the right hemithorax remains stable. 2. Previously noted left lower lobe consolidation and effusion essentially resolved. Electronically Signed by Trell Gibson MD 06/26/2018 01:50 A
== END ==
LOC: M RAD 12:32
PROVIDERS: ATTEND Internal Medicine Medical Oncology
DX: R05 Cough (principal); Z85.118 Personal history of other malignant neoplasm of bronchus and lung

== ENCOUNTER 2018-08-07 23:47 | Inpatient (IN) | payer OTHER ==
[~2018-08-07] VITALS: Ht 180.3 cm; Wt 90.6 kg
[2018-08-08 00:56] LABS: BASO % 0.4 % (0.0-1.0); EOS # 0.1 10^3/uL (0.0-0.50); HEMATOCRIT 31.1 % (42.0-52.0); HEMOGLOBIN 10.3 g/dl (13.5-17.5); LYMPH # 0.6 10^3/uL (1.5-4.5); LYMPH % 7.8 % (24.0-44.0); MEAN CORPUSCULAR HEMOGLOBIN 29.9 pg (27.0-33.0); MEAN CORPUSCULAR HGB CONC 33.1 g/dl (32.0-36.5); MEAN CORPUSCULAR VOLUME 90.1 fl (80.0-96.0); MONO # 0.6 10^3/uL (0.0-0.8); MONO % 8.4 % (0.0-5.0); NEUTROPHILS # 5.8 10^3/uL (1.8-7.7); NEUTROPHILS % 82.3 % (36.0-66.0); PLATELET COUNT, AUTOMATED 131 10^3/uL (150-450); RED BLOOD COUNT 3.45 10^6/uL (4.30-6.10)
[2018-08-08 01:01] LABS: PARTIAL THROMBOPLASTIN TIME 34.7 SECONDS (25.4-37.6)
[2018-08-08 01:04] LABS: BLOOD UREA NITROGEN 23 MG/DL (7-18); CALCIUM LEVEL 8.3 MG/DL (8.8-10.2); CARBON DIOXIDE LEVEL 29 MEQ/L (21-32); CHLORIDE LEVEL 103 MEQ/L (98-107); CREATININE FOR GFR 0.98 MG/DL (0.70-1.30); GLOMERULAR FILTRATION RATE > 60.0 (>49); GLUCOSE, FASTING 90 MG/DL (70-100); POTASSIUM SERUM 3.7 MEQ/L (3.5-5.1); SODIUM LEVEL 141 MEQ/L (136-145)
[2018-08-08 01:10] LABS: INR 1.35; PROTHROMBIN TIME 16.9 SECONDS (12.1-14.4)
[2018-08-08 01:46] LABS: ABG HCO3 23.7 MEQ/L (22.0-26.0); ABG O2 SATURATION 99.3 % (95.0-99.0); ABG PARTIAL PRESSURE CO2 39.1 mmHg (35.0-45.0); ABG PARTIAL PRESSURE O2 175.2 mmHg (75.0-100.0); ABG STANDARD HCO3 23.7 MEQ/L (22.0-26.0); ABG TOTAL CO2 24.9 MEQ/L (23.0-31.0)
[2018-08-08] MEDS ORDERED: SPIR-10 PO (02:15)
[2018-08-08] MEDS ORDERED: LASI40TA9 PO (02:15)
[2018-08-08] MEDS ORDERED: MORPHINE 2 MG/ML 1ML SYRINGE (J2270) IV ONE (02:15)
[2018-08-08] MEDS ORDERED: ISOVUE-370 76% 100ML VIAL (Q9967) As Ordered ONE (02:20)
[2018-08-08] MEDS ORDERED: IBUPROFEN 600 MG TAB PO PRN (03:15)
[2018-08-08] MEDS ORDERED: FLUTICASONE PROP 0.05% NASAL SPRAY 16 GM (FLONASE) PRN (03:15)
[2018-08-08] MEDS ORDERED: ONDANSETRON 4 MG TAB (S0181) PO PRN (03:15)
[2018-08-08] MEDS ORDERED: ALBUTEROL 90 MCG/ACT 8GM HFA INHALER INH PRN (03:15)
--- NOTE | 2018-08-08 03:26 | REPVR ---
EXAM: CT Angiography Chest With Contrast EXAM DATE/TIME: 08/08/2018 2:09 AM CLINICAL HISTORY: 62 years old, male; Condition or disease; Lung condition and disease; Cancer of the lung; Right; Unspecified; Additional info: Dyspnea/ effusion TECHNIQUE: Axial computed tomographic angiography images of the chest with intravenous contrast using CT angiography protocol. All CT scans at this facility use at least one of these dose optimization techniques: automated exposure control; mA and/or kV adjustment per patient size (includes targeted exams where dose is matched to clinical indication); or iterative reconstruction. Coronal and sagittal reformatted images were created and reviewed. MIP reconstructed images were created and reviewed. CONTRAST: Contrast Material: 75 ml of iso; Contrast Route: ac COMPARISON: CT ANGIO CHEST 05/27/2018 5:11 PM FINDINGS: Tubes, catheters and devices: Pacemaker from the left. Pulmonary arteries: The main pulmonary artery measures 22 mm. No pulmonary embolism is identified. Aorta: The ascending thoracic aorta measures 32 mm. Other veins: Volume loss in the right hemithorax with pleural thickening and complete fibro-atelectatic change involving the right upper lobe and moderate fibro-atelectatic change extending caudally from the right hilum into the right lower lobe and to a lesser degree the medial right middle lobe. Lungs: Slight left lung interstitial prominence with mild left lower lobe and to a lesser degree lingular fibro-atelectatic change. Pleural space: Mild to moderate left pleural effusion with trace left pneumothorax. Trace loculated right pleural effusion. Heart: Normal. No cardiomegaly. No pericardial effusion. Lymph nodes: Unremarkable. No enlarged lymph nodes. Bones/joints: Unremarkable. No acute fracture. Soft tissues: Unremarkable. IMPRESSION: 1. Mild to moderate left pleural effusion which is similar to 05/27/2018, however, there is new trace left pneumothorax. 2. Volume loss in the right hemithorax with extensive fibro-atelectatic change which may reflect post radiation change. There is decreased patchy infiltrate in the remaining aerated lung since the prior study. 3. Mild left lower lobe and to a lesser degree lingular fibro-atelectatic change which is similar to the prior study. 4. No pulmonary embolism is identified. Electronically signed by: Shayan Dunaway On 08/08/2018 03:25:50 AM
--- NOTE | 2018-08-08 03:36 | HPEPDOC ---
[facility] Medical History & Physical Date of Admission Aug 08, 2018 Primary Care Physician: JUSTIN DOSS MD Attending Physician: GRAY FORTUNE MD History and Physical CHIEF COMPLAINT: SOB of breath HISTORY OF PRESENT ILLNESS: Patient is 62-year-old male past medical history stage IV small cell lung cancer in 2008 status post chemotherapy and radiation, atrial fibrillation, SSS status post PPM, KRISTAN on CPAP, COPD, hypothyroidism, pulmonary retention who presents to the ED complaining of shortness of breath that started earlier this afternoon around 3 PM. Patient stated that he had just returned from an ice fishing trip. Denies any trauma, denies any cough, denied hemoptysis. His shortness of breath has remained the same. Patient has a history of previous admissions for shortness of breath due to bilateral pleural effusions which are recurrent in nature. He has had thoracocentesis as well as bronchoscopies which yielded negative for malignancy. He currently follows with Dr. Braswell and Dr. Gordon. Denies chest pain, denies nausea, denied vomiting, denies changes in vision. Denies any recent illness. Admits to shortness of breath, difficulty breathing. Denies edema, PAST MEDICAL HISTORY: As per HPI PAST SURGICAL HISTORY: Chest tube, PPM, renal stents, pleurodesis, port placement and removal, partial colon resection SOCIAL HISTORY: Former smoker, denies alcohol. Denies illicit drug use FAMILY HISTORY: Noncontributory to current pulmonary issues ALLERGIES: Please see below. REVIEW OF SYSTEMS: CONSTITUTIONAL: No fevers, denies chills, denies weight loss, denies lethargy HEENT: No rhinorrhea, no itchy eyes, no congesion, CARDIOVASCULAR: No murmurs no palpitations and arrhythmias RESPIRATORY: Admits to shortness of breath GASTROINTESTINAL: No nausea, no vomiting, no difficulty swallowing, no pain with eating, no diarrhea HEMATOLOGICAL: No bleeding GENITOURINARY:No Issues HEMATOLOGIC/LYMPHATIC: No swelling HOME MEDICATIONS: Please see below. PHYSICAL EXAMINATION: VITALS: See Below GENERAL APPEARANCE: Alert no acute distress. Able to speak in full sentence, complain of shortness of breath SKIN: Warm, well perfused. LUNGS: Diminished breath sounds, moderate crackles detected bilateral lower lungs, no rhonchi, expiratory wheezing appreciated HEART: Normal S1, S2. No murmurs, no rubs, no gallops ABDOMEN: Soft. No masses. Bowel sounds are present. EXTREMITIES: Moves all extremities equally. No gross deformities. PULSES: 2+ upper and lower extremity . No edema LABORATORY DATA: See below. IMAGING: Chest x-ray, pending official read, by my interpretation. There is bilateral pleural effusion, worse in the left Chest CT pending Echocardiogram dated 05/27/2018 -CONCLUSIONS: 1. Bilateral pleural effusions, which appear to be large. 2. No pericardial effusion. 3. Normal left ventricle internal dimensions and wall thickness. Normal regional left ventricle (LV) wall motion and wall thickening. Normal LV systolic function. Left ventricular ejection fraction (LVEF) 65% by visual estimate. Normal LV diastolic function. 4. Mild left atrial dilatation. 5. Moderate aortic valve sclerosis of a three-cuspid aortic valve. No aortic stenosis or regurgitation. 6. Mild mitral annular calcification. No mitral regurgitation detected. 7. Presence of endocardial, right atrial and right ventricle pacemaker leads with right ventricle pacing lead going towards the right ventricle apex. 8. Dilated inferior vena cava. Consider elevated central venous pressure MICROBIOLOGY: Please see below. ASSESSMENT/PLAN: 1. Dyspnea, likely 2/2 to recurrent effusions, 2/2 KRISTAN,. Is likely to be infection, no signs of active infection -Lasix IV every 8 hours. -CT pending to rule out PE -Echocardiogram on last admission reviewed (results above) -PT and OT on board -Oxygen therapy provided 2. History of atrial fibrillation. -1 points on [id number] score, consider antiplatelet or anticoagulation, record review, has indicated patient has refused anticoagulation in the past. -Heart rate is within acceptable range 3. KRISTAN on CPAP -May use home CPAP 4. History of stage IV lung cancer status post chemotherapy and radiation in 2007 -Will follow-up as an outpatient 5. Hypothyroidism on Synthroid -Continue home meds 6. Thrombocytopenia, likely reactive -Continue to monitor DVT prophylaxis -Lovenox Patient will followed by Dr. Burgos starting 05/28/18 at 7 AM. Vital Signs Vital Signs Date Time Temp Pulse Resp B/P (MAP) Pulse Ox O2 Delivery O2 Flow Rate FiO2 08/08/18 02:43 18 08/08/18 02:15 74 110/56 98 3.0 08/08/18 00:33 Nasal Cannula 08/07/18 23:57 98.1 Laboratory Data Labs 24H Laboratory Tests 2 08/08/18 00:02: Immature Granulocyte % (Auto) 0.1, White Blood Count 7.0, Red Blood Count 3.45L, Hemoglobin 10.3L, Hematocrit 31.1L, Mean Corpuscular Volume 90.1, Mean Corpuscular Hemoglobin 29.9, Mean Corpuscular Hemoglobin Concent 33.1, Red Cell Distribution Width 14.6H, Platelet Count 131L, Neutrophils (%) (Auto) 82.3H, Ly mphocytes (%) (Auto) 7.8L, Monocytes (%) (Auto) 8.4H, Eosinophils (%) (Auto) 1.0, Basophils (%) (Auto) 0.4, Neutrophils # (Auto) 5.8, Lymphocytes # (Auto) 0.6L, Monocytes # (Auto) 0.6, Eosinophils # (Auto) 0.1, Basophils # (Auto) 0.0, Nucleated Red Blood Cells % (auto) 0.0, Prothrombin Time 16.9H, Prothromb Time International Ratio 1.35, Activated Partial Thromboplast Time 34.7, Anion Gap 9, Glomerular Filtration Rate > 60.0, Blood Urea Nitrogen 23H, Creatinine 0.98, Sodium Level 141, Potassium Level 3.7, Chloride Level 103, Carbon Dioxide Level 29, Calcium Level 8.3L 08/08/18 01:41: Blood Gas Bicarbonate Standard 23.7, Arterial Blood pH 7.400, Arterial Blood Partial Pressure CO2 39.1, Arterial Blood Partial Pressure O2 175.2H, Arterial Blood Total CO2 24.9, Arterial Blood HCO3 23.7, Arterial Blood Base Excess -1.0, Arterial Blood Oxygen Saturation 99.3H CBC/BMP Laboratory Tests 08/08/18 00:02 Red Blood Count 3.45 L, Mean Corpuscular Volume 90.1, Mean Corpuscular Hemoglobin 29.9, Mean Corpuscular Hemoglobin Concent 33.1, Red Cell Distribution Width 14.6 H, Neutrophils (%) (Auto) 82.3 H, Lymphocytes (%) (Auto) 7.8 L, Monocytes (%) (Auto) 8.4 H, Eosinophils (%) (Auto) 1.0, Basophils (%) (Auto) 0.4, Neutrophils # (Auto) 5.8, Lymphocytes # (Auto) 0.6 L, Monocytes # (Auto) 0.6, Eosinophils # (Auto) 0.1, Basophils # (Auto) 0.0, Calcium Level 8.3 L Microbiology Microbiology 08/08/18 Blood Culture, Received Pending Home Medications Scheduled Furosemide (Lasix) 40 Mg Tab, 40 MG PO DAILY Guaifenesin (Mucinex) 600 Mg Tab, 600 MG PO BID Levothyroxine Sodium (Levoxyl) 88 Mcg Tab, 88 MCG PO DAILY Spironolactone (Spironolactone) 25 Mg Tab, 25 MG PO DAILY Scheduled PRN Albuterol Sulfate (Ventolin Hfa) 108 Mcg/Act Aer, 2 PUFF INH Q4H PRN for WHEEZING Fluticasone Propionate (Flonase Allergy Relief) 50 Mcg/Act Spr, 2 SPRAYS NA NBA Y PRN for NASAL CONGESTION Ibuprofen (Ibuprofen) 200 Mg Tab, 600 MG PO Q6H PRN for PAIN Allergies Coded Allergies: Niacin (Verified Allergy, Unknown, 08/08/18) GME ATTESTATION GME ATTESTATION My faculty preceptor for this patient encounter was physically present during the encounter and was fully available. All aspects of the patient interview, examination, medical decision making process, and medical care plan development were reviewed and approved by the faculty preceptor. The faculty preceptor is aware and concurs with the plan as stated in the body of this note and will attest to such by his/her cosignature. JENNIFER ARIAS DO Aug 08, 2018 03:36
[2018-08-08 04:55] VITALS: BP 166/78
[2018-08-08] MEDS: FUROSEMIDE 40 MG/4 ML VIAL (J1940) IV SCH ×2 (05:47→12:15)
[2018-08-08] MEDS: ACETAMINOPHEN TAB 650MG DOSE (2X325MG) PO PRN (05:52)
[2018-08-08] MEDS: LEVOTHYROXINE 88MCG TABLET (0.088 MG) PO SCH (05:53)
[2018-08-08] MEDS: PERCOCET 5MG/325MG TAB PO PRN ×3 (07:55→20:41)
[2018-08-08 08:00] VITALS: BP 114/59
[2018-08-08] MEDS ORDERED: CEFEPIME HCL 1 GM in D5W MINI-BAG PLUS 50 ML IV SCH (08:00)
--- NOTE | 2018-08-08 08:06 | REP ---
A PA and lateral chest three views single AP and two lateral views: Comparison is 06/25/2018. There are bilateral pleural effusions. The left pleural effusion appears to have increased. Right pleural effusion is unchanged. There is a focal density medially in the right upper lobe extending to the right hilus, unchanged. This could represent infiltrate, atelectasis, mass, or scarring . Cardiac size is normal. The right hilus and right mediastinal border are obscured by the medial right upper lobe density. There is a dual-chamber pacemaker, unchanged. Impression: The left pleural effusion appears to have increased. No other interval change. Electronically Signed by Carlos Gray MD 08/08/2018 07:58 A
[2018-08-08] MEDS: ENOXAPARIN 30 MG/0.3 ML SYR (J1650) SC SCH (08:21)
[2018-08-08] MEDS: SPIRONOLACTONE 25 MG TAB PO SCH (08:21)
[2018-08-08] MEDS: PANTOPRAZOLE 40MG TAB (PROTONIX) PO SCH (08:21)
[2018-08-08] MEDS: guaiFENesin ER 600 MG TAB PO SCH ×2 (08:21→20:41)
[2018-08-08 12:00] VITALS: BP 112/56
--- NOTE | 2018-08-08 13:38 | IPNPDOC ---
Subjective Date Seen The patient was seen on 08/08/18. Subjective Chief Complaint/HPI Patient seen and examined at the bedside. Reports that his respiratory status is improved compared to yesterday. Objective Physical Examination General Exam: Positive: Alert, Cooperative, No Acute Distress ENT Exam: Positive: Atraumatic, Mucous membr. moist/pink Chest Exam: Positive: Diminished Heart Exam: Positive: Rate Normal, Normal S1, Normal S2 Abdomen Exam: Positive: Soft; Negative: Tenderness Extremity Exam: Negative: Tenderness, Swelling Psych Exam: Positive: Oriented x 3 Assessment /Plan Plan/VTE VTE Prophylaxis Ordered?: Yes Plan Shortness of Breath, Acute Hypoxia likely 2/2 Human Rhinovirus/Enterovirus CT Chest notable for mild to moderate left sided pleural effusion similar to 05/27/2018 Respiratory Panel notable for Human Rhinovirus/Enterovirus We will D/C Abx at this time IV Solu-medrol, serial Nebulizer therapy ordered We will cont to monitor the patient's respiratory status PT ordered for functional optimization 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 Gordon of Oncology as an outpatient Recurrent Pleural Effusions s/p Right Sided Talc Pleurodesis via Thoracoscopy [place] [address] Kwon As for the recurrent Left Sided Pleural Effusions the patient underwent a bronchoscopy and thoracentesis in 02/2018 and a repeat thoracentesis in 05/2018 and the cytology has come back negative for malignancy A 2D ECHO from 05/2018 was notable for a normal EF, and normal diastolic function I did review his repeat CTA Chest imaging which was done admission with Dr. Braswell of Pulmonary this morning (08/08/18), and given the recurrence of the left sided pleural effusion, perhaps the patient would benefit from another thoracentesis vs more definitive treatment with Thoracic Surgery. I have placed a call to Dr. Kwon, and will f/u with his recommendations In the interim we will cont to diuretic therapy Hx of COPD Cont treatment as delineated above Obstructive Sleep Apnea Cont Home BiPAP SSS s/p PPM Hypothyroidism Cont Levothyroxine GERD Cont PPI DVT Prophylaxis Lovenox SC Dispo--pending clinical improvement VS, I&O, 24H, Fishbone Vital Signs/I&O Vital Signs Date Time Temp Pulse Resp B/P (MAP) Pulse Ox O2 Delivery O2 Flow Rate FiO2 08/08/18 12:49 87 08/08/18 12:00 97.1 78 18 112/56 (74) 1.0 08/08/18 00:33 Nasal Cannula I&O- Last 24 Hours up to 6 AM 08/08/18 06:00 Intake Total 240 ml Output Total 200 ml Balance 40 ml Laboratory Data 24H LABS Laboratory Tests 2 08/08/18 00:02: Immature Granulocyte % (Auto) 0.1, White Blood Count 7.0, Red Blood Count 3.45L, Hemoglobin 10.3L, Hematocrit 31.1L, Mean Corpuscular Volume 90.1, Mean Corpuscular Hemoglobin 29.9, Mean Corpuscular Hemoglobin Concent 33.1, Red Cell Distribution Width 14.6H, Platelet Count 131L, Neutrophils (%) (Auto) 82.3H, Lymphocytes (%) (Auto) 7.8L, Monocytes (%) (Auto) 8.4H, Eosinophils (%) (Auto) 1.0, Basophils (%) (Auto) 0.4, Neutrophils # (Auto) 5.8, Lymphocytes # (Auto) 0.6L, Monocytes # (Auto) 0.6, Eosinophils # (Auto) 0.1, Basophils # (Auto) 0.0, Nucleated Red Blood Cells % (auto) 0.0, Prothrombin Time 16.9H, Prothromb Time International Ratio 1.35, Activated Partial Thromboplast Time 34.7, Anion Gap 9, Glomerular Filtration Rate > 60.0, Blood Urea Nitrogen 23H, Creatinine 0.98, Sodium Level 141, Potassium Level 3.7, Chloride Level 103, Carbon Dioxide Level 29, Calcium Level 8.3L 08/08/18 01:41: Blood Gas Bicarbonate Standard 23.7, Arterial Blood pH 7.400, Arterial Blood Partial Pressure CO2 39.1, Arterial Blood Partial Pressure O2 175.2H, Arterial Blood Total CO2 24.9, Arterial Blood HCO3 23.7, Arterial Blood Base Excess -1.0, Arterial Blood Oxygen Saturation 99.3H 08/08/18 08:52: Troponin I < 0.02 CBC/BMP Laboratory Tests 08/08/18 00:02 Red Blood Count 3.45 L, Mean Corpuscular Volume 90.1, Mean Corpuscular He moglobin 29.9, Mean Corpuscular Hemoglobin Concent 33.1, Red Cell Distribution Width 14.6 H, Neutrophils (%) (Auto) 82.3 H, Lymphocytes (%) (Auto) 7.8 L, Monocytes (%) (Auto) 8.4 H, Eosinophils (%) (Auto) 1.0, Basophils (%) (Auto) 0.4, Neutrophils # (Auto) 5.8, Lymphocytes # (Auto) 0.6 L, Monocytes # (Auto) 0.6, Eosinophils # (Auto) 0.1, Basophils # (Auto) 0.0, Calcium Level 8.3 L Microbiology Microbiology 08/08/18 Blood Culture, Received Pending 08/08/18 Respiratory Virus Panel (PCR) ([facility]) - Final, Complete Human Rhinovirus/Enterovirus FIONA JERNIGAN MD Aug 08, 2018 13:38
[2018-08-08] MEDS: methylPREDNISolone INJ 40 MG/1 ML VIAL (J2920) IV SCH (13:55)
[2018-08-08 16:00] VITALS: BP 113/58
[2018-08-08] MEDS: IPRATROPIUM 0.5MG/ALBUTEROL 2.5MG INH SOL UD 3ML (DUONEB)(J7620) NEB SCH ×3 (16:15→23:11)
[2018-08-08 19:53] VITALS: BP 133/69
[2018-08-08 23:59] VITALS: BP 114/62
[2018-08-09] MEDS: ACETAMINOPHEN TAB 650MG DOSE (2X325MG) PO PRN (00:06)
[2018-08-09] MEDS: methylPREDNISolone INJ 40 MG/1 ML VIAL (J2920) IV SCH ×2 (01:39→14:19)
[2018-08-09] MEDS: IPRATROPIUM 0.5MG/ALBUTEROL 2.5MG INH SOL UD 3ML (DUONEB)(J7620) NEB SCH ×6 (03:58→23:27)
[2018-08-09 04:00] VITALS: BP 124/57
[2018-08-09 05:05] LABS: HEMATOCRIT 30.4 % (42.0-52.0); MEAN CORPUSCULAR HEMOGLOBIN 29.5 pg (27.0-33.0); MEAN CORPUSCULAR HGB CONC 32.9 g/dl (32.0-36.5); MEAN CORPUSCULAR VOLUME 89.7 fl (80.0-96.0); PLATELET COUNT, AUTOMATED 111 10^3/uL (150-450); RED BLOOD COUNT 3.39 10^6/uL (4.30-6.10); WHITE BLOOD COUNT 7.8 10^3/uL (4.0-10.0)
[2018-08-09] MEDS: LEVOTHYROXINE 88MCG TABLET (0.088 MG) PO SCH (05:17)
[2018-08-09 05:20] LABS: BLOOD UREA NITROGEN 31 MG/DL (7-18); CALCIUM LEVEL 8.4 MG/DL (8.8-10.2); CARBON DIOXIDE LEVEL 27 MEQ/L (21-32); CHLORIDE LEVEL 102 MEQ/L (98-107); GLOMERULAR FILTRATION RATE > 60.0 (>49); GLUCOSE, FASTING 213 MG/DL (70-100); POTASSIUM SERUM 3.4 MEQ/L (3.5-5.1); SODIUM LEVEL 138 MEQ/L (136-145)
[2018-08-09] MEDS ORDERED: POTASSIUM CHLORIDE 10 MEQ SR TABLET PO ONE (06:00)
[2018-08-09 08:00] VITALS: BP 108/58
[2018-08-09] MEDS: FUROSEMIDE 40 MG TAB PO SCH (09:33)
[2018-08-09] MEDS: SPIRONOLACTONE 25 MG TAB PO SCH (09:33)
[2018-08-09] MEDS: guaiFENesin ER 600 MG TAB PO SCH ×2 (09:33→20:33)
[2018-08-09] MEDS: PANTOPRAZOLE 40MG TAB (PROTONIX) PO SCH (09:33)
[2018-08-09] MEDS: ENOXAPARIN 30 MG/0.3 ML SYR (J1650) SC SCH (09:34)
--- NOTE | 2018-08-09 11:54 | IPNPDOC ---
Subjective Date Seen The patient was seen on 08/09/18. Subjective Chief Complaint/HPI Patient seen and examined at the bedside. Reports that his respiratory status is improving overall. He notes that he has been able to walk back and forth to the bathroom and around his room without any acute distress. He has yet to work with physical therapy, and has been encouraged to do so. Otherwise, the patient denies any acute overnight events. Objective Physical Examination General Exam: Positive: Alert, Cooperative, No Acute Distress ENT Exam: Positive: Atraumatic, Mucous membr. moist/pink Chest Exam: Positive: Diminished Heart Exam: Positive: Rate Normal, Normal S1, Normal S2 Abdomen Exam: Positive: Soft; Negative: Tenderness Extremity Exam: Negative: Tenderness, Swelling Psych Exam: Positive: Oriented x 3 Assessment /Plan Plan/VTE VTE Prophylaxis Ordered?: Yes Plan Shortness of Breath, Acute Hypoxia likely 2/2 Human Rhinovirus/Enterovirus CT Chest notable for mild to moderate left sided pleural effusion similar to 05/27/2018 Respiratory Panel notable for Human Rhinovirus/Enterovirus Cont IV Solu-medrol, serial Nebulizer therapy ordered We will cont to monitor the patient's respiratory status PT ordered for functional optimization 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 Gordon of Oncology as an outpatient Recurrent Pleural Effusions s/p Right Sided Talc Pleurodesis via Thoracoscopy [place] [address] Kwon As for the recurrent Left Sided Pleural Effusions the patient underwent a bronchoscopy and thoracentesis in 02/2018 and a repeat thoracentesis in 05/2018 and the cytology has come back negative for malignancy A 2D ECHO from 05/2018 was notable for a normal EF, and normal diastolic function I did review his repeat CTA Chest imaging from this admission with Dr. Kwon of Thoracic Surgery this morning (08/09/18), and given the small amount of the left sided pleural effusion, Dr. Kwon has recommended a thoracentesis at this time. We will set the patient up to follow up with Dr. Kwon as an outpatient for further monitoring, and reassessment for possible Left Sided Talc- Pleurodesis in the future. We will cont to diuretic therapy Hx of COPD Cont treatment as delineated above Obstructive Sleep Apnea Cont Home BiPAP SSS s/p PPM Hypothyroidism Cont Levothyroxine GERD Cont PPI DVT Prophylaxis Lovenox SC Dispo--pending clinical improvement, PT evaluation, and Thoracentesis tomorrow. VS, I&O, 24H, Fishbone Vital Signs/I&O Vital Signs Date Time Temp Pulse Resp B/P (MAP) Pulse Ox O2 Delivery O2 Flow Rate FiO2 08/09/18 08:00 1.0 08/09/18 08:00 97.7 92 16 108/58 (75) 93 08/08/18 23:12 Nasal Cannula I&O- Last 24 Hours up to 6 AM 08/09/18 05:59 Intake Total 1850 ml Output Total 2425 ml Balance -575 ml Laboratory Data 24H LABS Laboratory Tests 2 08/08/18 16:50: Troponin I < 0.02 08/09/18 00:59: Troponin I < 0.02 08/09/18 04:42: Nucleated Red Blood Cells % (auto) 0.0, Anion Gap 9, Glomerular Filtration Rate > 60.0, Blood Urea Nitrogen 31H, Creatinine 1.20, Sodium Level 138, Potassium Level 3.4L, Chloride Level 102, Carbon Dioxide Level 27, Calcium Level 8.4L CBC/BMP Laboratory Tests 08/09/18 04:42 Red Blood Count 3.39 L, Mean Corpuscular Volume 89.7, Mean Corpuscular Hemoglobin 29.5, Mean Corpuscular Hemoglobin Concent 32.9, Red Cell Distribution Width 14.6 H, Calcium Level 8.4 L Microbiology Microbiology 08/08/18 Blood Culture - Preliminary, Resulted No growth after 24 hours . All specim... 08/08/18 Respiratory Virus Panel (PCR) ([facility]) - Final, Complete Human Rhinovirus/Enterovirus 08/08/18 Gram Stain - Final, Complete 08/08/18 Sputum Culture - Final, Complete FIONA JERNIGAN MD Aug 09, 2018 11:54
[2018-08-09 12:00] VITALS: BP 112/54
[2018-08-09 12:10] LABS: LDH LACTATE DEHYDROGENASE 197 U/L (87-241)
[2018-08-09 16:00] VITALS: BP 118/56
[2018-08-09 20:00] VITALS: BP 127/59
[2018-08-09] MEDS: PERCOCET 5MG/325MG TAB PO PRN (20:34)
[2018-08-10] VITALS (9 sets, daily range): BP systolic 100–132; BP diastolic 56–67
[2018-08-10] MEDS: PERCOCET 5MG/325MG TAB PO PRN (01:03)
[2018-08-10] MEDS: methylPREDNISolone INJ 40 MG/1 ML VIAL (J2920) IV SCH ×2 (01:03→13:45)
[2018-08-10 05:28] LABS: HEMATOCRIT 29.7 % (42.0-52.0); HEMOGLOBIN 9.6 g/dl (13.5-17.5); MEAN CORPUSCULAR HGB CONC 32.3 g/dl (32.0-36.5); MEAN CORPUSCULAR VOLUME 89.7 fl (80.0-96.0); PLATELET COUNT, AUTOMATED 123 10^3/uL (150-450); RED BLOOD COUNT 3.31 10^6/uL (4.30-6.10); WHITE BLOOD COUNT 12.2 10^3/uL (4.0-10.0)
[2018-08-10] MEDS: IPRATROPIUM 0.5MG/ALBUTEROL 2.5MG INH SOL UD 3ML (DUONEB)(J7620) NEB SCH ×6 (05:40→23:59)
[2018-08-10 05:47] LABS: BLOOD UREA NITROGEN 36 MG/DL (7-18); CALCIUM LEVEL 8.5 MG/DL (8.8-10.2); CARBON DIOXIDE LEVEL 29 MEQ/L (21-32); CHLORIDE LEVEL 104 MEQ/L (98-107); CREATININE FOR GFR 0.97 MG/DL (0.70-1.30); GLOMERULAR FILTRATION RATE > 60.0 (>49); GLUCOSE, FASTING 154 MG/DL (70-100); POTASSIUM SERUM 3.9 MEQ/L (3.5-5.1); SODIUM LEVEL 139 MEQ/L (136-145)
[2018-08-10] MEDS: LEVOTHYROXINE 88MCG TABLET (0.088 MG) PO SCH (06:23)
[2018-08-10] MEDS: guaiFENesin ER 600 MG TAB PO SCH ×2 (08:37→20:23)
[2018-08-10] MEDS: PANTOPRAZOLE 40MG TAB (PROTONIX) PO SCH (08:37)
[2018-08-10] MEDS: SPIRONOLACTONE 25 MG TAB PO SCH (08:37)
[2018-08-10] MEDS: FUROSEMIDE 40 MG TAB PO SCH (08:38)
--- NOTE | 2018-08-10 14:58 | IPNPDOC ---
Subjective Date Seen The patient was seen on 08/10/18. Subjective Chief Complaint/HPI Patient seen and examined at the bedside. He reports that his respiratory status is significantly improved. He was noted to be sitting comfortably at the bedside without any supplemental oxygen. He is scheduled to undergo thoracentesis today for left-sided pleural effusion. Otherwise no acute overnight events noted. Objective Physical Examination General Exam: Positive: Alert, Cooperative, No Acute Distress ENT Exam: Positive: Atraumatic, Mucous membr. moist/pink Chest Exam: Positive: Diminished Heart Exam: Positive: Rate Normal, Normal S1, Normal S2 Abdomen Exam: Positive: Soft; Negative: Tenderness Extremity Exam: Negative: Tenderness, Swelling Psych Exam: Positive: Oriented x 3 Assessment /Plan Plan/VTE VTE Prophylaxis Ordered?: Yes Plan Shortness of Breath, Acute Hypoxia likely 2/2 Human Rhinovirus/Enterovirus CT Chest notable for mild to moderate left sided pleural effusion similar to 05/27/2018 Respiratory Panel notable for Human Rhinovirus/Enterovirus Cont IV Solu-medrol, serial Nebulizer therapy ordered We will cont to monitor the patient's respiratory status PT has cleared the patient 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 Gordon of Oncology as an outpatient Recurrent Pleural Effusions s/p Right Sided Talc Pleurodesis via Thoracoscopy [place] [address] Kwon As for the recurrent Left Sided Pleural Effusions the patient underwent a bronchoscopy and thoracentesis in 02/2018 and a repeat thoracentesis in 05/2018 and the cytology has come back negative for malignancy A 2D ECHO from 05/2018 was notable for a normal EF, and normal diastolic function I did review his repeat CTA Chest imaging from this admission with Dr. Kwon of Thoracic Surgery--Recommends Thoracentesis, and f/u as an outpatient with Thoracic Surgery Patient scheduled for Thoracentesis today We will cont to diuretic therapy Hx of COPD Cont treatment as delineated above Obstructive Sleep Apnea Cont Home BiPAP SSS s/p PPM Hypothyroidism Cont Levothyroxine GERD Cont PPI DVT Prophylaxis Lovenox SC Dispo--pending clinical improvement, and Thoracentesis today. VS, I&O, 24H, Fishbone Vital Signs/I&O Vital Signs Date Time Temp Pulse Resp B/P (MAP) Pulse Ox O2 Delivery O2 Flow Rate FiO2 08/10/18 12:00 97.6 87 18 100/61 (74) 89 1.0 08/09/18 23:27 Nasal Cannula I&O- Last 24 Hours up to 6 AM 08/10/18 06:00 Intake Total 1200 ml Output Total 1600 ml Balance -400 ml Laboratory Data 24H LABS Laboratory Tests 2 08/10/18 04:44: Nucleated Red Blood Cells % (auto) 0.0, Anion Gap 6L, Glomerular Filtration Rate > 60.0, Blood Urea Nitrogen 36H, Creatinine 0.97, Sodium Level 139, Potassium Level 3.9, Chloride Level 104, Carbon Dioxide Level 29, Calcium Level 8.5L CBC/BMP Laboratory Tests 08/10/18 04:44 Red Blood Count 3.31 L, Mean Corpuscular Volume 89.7, Mean Corpuscular Hemoglobin 29.0, Mean Corpuscular Hemoglobin Concent 32.3, Red Cell Distribution Width 14.7 H, Calcium Level 8.5 L Microbiology Microbiology 08/08/18 Blood Culture - Preliminary, Resulted No Growth after 48 hours. All Specime... 08/08/18 Respiratory Virus Panel (PCR) ([facility]) - Final, Complete Human Rhinovirus/Enterovirus 08/08/18 Gram Stain - Final, Complete 08/08/18 Sputum Culture - Final, Complete FIONA JERNIGAN MD Aug 10, 2018 14:58
[2018-08-10 16:19] LABS: APPEARANCE, BODY FLUID TURBID (CLEAR); PLEURAL FL COLOR AMBER (COLORLESS); SOURCE, BODY FLUID PLEURAL
--- NOTE | 2018-08-10 16:36 | REP ---
Clinical: Status post left thoracentesis Comparison: 08/08/2018 Findings: Volume loss and pleuroparenchymal changes involving the right hemithorax remains stable. Left hemithorax demonstrates small left pleural effusion which appears decreased from prior examination. No obvious pneumothorax. Visualize cardiac silhouette is stable. Dual lead pacemaker. Skeletal structures stable. Impression: Decreased left pleural effusion suggested. No pneumothorax. Electronically Signed by Trell Gibson MD 08/10/2018 04:27 P
[2018-08-10 16:43] LABS: PH BODY FLUID 7.447 UNITS (NOT ESTABLISHED); SOURCE, BODY FLUID pH PLEURAL
[2018-08-10 16:56] LABS: AMYLASE, BODY FLUID 12 U/L (NOT ESTABLISHED); CHOLESTEROL, BODY FLUID 62 MG/DL (NOT ESTABLISHED); LDH, BODY FLUID 816 U/L (NOT ESTABLISHED); SOURCE, BODY FLUID ALBUMIN PLEURAL; SOURCE, BODY FLUID AMYLASE PLEURAL; SOURCE, BODY FLUID CHOL PLEURAL; SOURCE, BODY FLUID GLUCOSE PLEURAL; SOURCE, BODY FLUID LDH PLEURAL; SOURCE, BODY FLUID TOT PROTEIN PLEURAL; SOURCE, BODY FLUID TRIG PLEURAL; TOTAL PROTEIN, BODY FLUID 4.3 G/DL (NOT ESTABLISHED); TRIGLYCERIDE, BODY FLUID 38 MG/DL (NOT ESTABLISHED)
--- NOTE | 2018-08-10 17:13 | REP ---
Left sided thoracentesis: History: Lung carcinoma. Recurrent left pleural effusion. Procedure: The patient was interviewed and informed consent was obtained. The patient was scanned in a seated position over the left posterior chest and a septated left pleural effusion was confirmed. Optimum interspace was located and the skin was marked at this site. The patient safety time-out was articulated and agreed upon. Following this the skin was prepped and draped in the usual fashion. 6 ml of 1% lidocaine was utilized for local anesthetic. An 8-[place] TUR donte catheter was passed with trocar technique into the left pleural space without technical difficulty. 1100 ml of bloody pleural fluid was withdrawn. The patient tolerated the procedure well. Impression: Ultrasound guided left thoracentesis. Electronically Signed by Justus Chambers MD 08/10/2018 05:46 P
[2018-08-11] MEDS: methylPREDNISolone INJ 40 MG/1 ML VIAL (J2920) IV SCH (01:08)
[2018-08-11] MEDS: IPRATROPIUM 0.5MG/ALBUTEROL 2.5MG INH SOL UD 3ML (DUONEB)(J7620) NEB SCH (03:12)
[2018-08-11 04:00] VITALS: BP 108/53
[2018-08-11] MEDS: LEVOTHYROXINE 88MCG TABLET (0.088 MG) PO SCH (05:46)
[2018-08-11 08:00] VITALS: BP 114/57
[2018-08-11] MEDS: SPIRONOLACTONE 25 MG TAB PO SCH (08:06)
[2018-08-11] MEDS: PANTOPRAZOLE 40MG TAB (PROTONIX) PO SCH (08:06)
[2018-08-11] MEDS: guaiFENesin ER 600 MG TAB PO SCH (08:06)
[2018-08-11] MEDS: FUROSEMIDE 40 MG TAB PO SCH (08:07)
[2018-08-11] MEDS ORDERED: PRED10TA2 PO (09:01)
--- NOTE | 2018-08-11 20:15 | DSES ---
DATE OF ADMISSION: 08/08/2018 DATE OF DISCHARGE: 08/11/2018 PRIMARY CARE PROVIDER: Nancy Montalvo CONSULTANTS: None. DISCHARGE DIAGNOSES: 1. Acute respiratory hypoxia secondary to human rhinovirus/enterovirus. 2. 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 3. Recurrent pleural effusion. 4. History of chronic obstructive pulmonary disease (COPD). 5. Obstructive sleep apnea. 6. Sick sinus syndrome, status post pacemaker placement. 7. Hypothyroidism. 8. Gastroesophageal reflux disease (GERD). 9. History of atrial fibrillation. HOSPITALIZATION COURSE: The patient is a 62-year-old gentleman who presented to [facility] on 08/08/2018 with a complaint of shortness of breath. During the admission process, the patient was found to have recurrent pleural effusion. The patient was admitted under the hospitalist service. The patient was started on diuretics. Respiratory panel came back positive for viral infection. IV steroids that were started on admission are being tapered based on the patient's clinical presentation. During the admission, the patient's imaging studies were reviewed with the patient's real estate clerk. The case was discussed with cardiothoracic surgery. The patient had a thoracentesis per recommendations on 08/10/2018, approximately 1.1 liters of pleural fluid was removed. The patient tolerated the procedure well. The patient was continued on the diuretic for the procedures. On 08/11/2018 the patient remained medically stable and the patient was determined stable for discharge with recommendation to followup with her primary care provider in 1 to 2 weeks. The patient also should followup with cardiothoracic surgery, Dr. Kwon, in 2 weeks for recommendations. VITAL SIGNS: On the day of discharge: Temperature of 97, pulse 77, respirations 18, blood pressure 114/57, pulse oximetry 97% on room air. LABORATORY DATA: WBC 12.7, hemoglobin 9.6, hematocrit 29.7, platelet count is 123. Sodium is 139, potassium 3.9, chloride 104, carbon dioxide 29, BUN 36, creatinine 0.97, GFR greater than 60, fasting glucose 154, calcium is 8.5. Microbiology: Blood cultures from 08/08/2018 are negative. Sputum culture from 08/08/2018 is negative. Respiratory panel from 08/08/2018 is positive for human rhinovirus/enterovirus. Pleural fluid culture from 08/10/2018, gram stain is negative. IMAGING STUDIES: CT angiogram of the chest on 08/08/2018 demonstrated mild to moderate left pleural effusion, new trace pneumothorax, volume loss in the right hemithorax with extensive fibroatelectatic change. Mild left lower lobe and to a lesser degree lingular fibroatelectatic change. No pulmonary embolism. DISCHARGE MEDICATIONS: - prednisone taper - Ventolin two puff inhalation every 4 hours as needed - Flonase two sprays nasally daily as needed - Lasix 40 mg by mouth daily - Mucinex 600 mg by mouth twice a day - ibuprofen 600 mg by mouth every 6 hours as needed - levothyroxine 88 mcg by mouth daily - spironolactone 25 mg by mouth daily DISCHARGE INSTRUCTIONS: Discontinue line. Discharge home. Activity as tolerated. Low salt diet as tolerated. The patient should followup with her primary care provider in [facility] in 1 to 2 weeks. Due to her recurrent pleural fluid, the patient is recommended to followup with cardiothoracic surgeon, Dr. Kwon, in 2 weeks. Discharge condition: Fair. Discharge time was greater than 30 minutes.
== END 2018-08-11 11:53 | disposition home or self-care (01) | DRG 188 ==
LOC: M ED 23:47 → M ED INP 08-08 02:19 → M PCU 08-08 04:40
PROVIDERS: ADMIT Hospitalist; ATTEND Internal Medicine
PROC: 0W9B3ZZ Drainage of Left Pleural Cavity, Percutaneous Approach (ICD-10-PCS; principal; 2018-08-10)
DX: J90 Pleural effusion, not elsewhere classified (principal); I48.91 Unspecified atrial fibrillation; G47.33 Obstructive sleep apnea (adult) (pediatric); E03.9 Hypothyroidism, unspecified; D69.6 Thrombocytopenia, unspecified; J00 Acute nasopharyngitis [common cold]; R09.02 Hypoxemia; Z79.899 Other long term (current) drug therapy; Z88.8 Allergy status to other drugs, medicaments and biological substances; Z85.118 Personal history of other malignant neoplasm of bronchus and lung; Z92.3 Personal history of irradiation; Z92.21 Personal history of antineoplastic chemotherapy; Z95.0 Presence of cardiac pacemaker; B97.10 Unspecified enterovirus as the cause of diseases classified elsewhere

== ENCOUNTER 2018-08-22 11:33 | Inpatient (IN) | payer OTHER ==
[~2018-08-22] VITALS: Ht 180.3 cm; Wt 100.0 kg
[2018-08-22] MEDS ORDERED: ALBU83IN NEB (11:39)
[2018-08-22 12:26] LABS: BASO % 0.2 % (0.0-1.0); EOS # 0.1 10^3/uL (0.0-0.50); EOS % 1.1 % (0.0-3.0); HEMATOCRIT 33.6 % (42.0-52.0); HEMOGLOBIN 10.6 g/dl (13.5-17.5); LYMPH # 0.6 10^3/uL (1.5-4.5); LYMPH % 6.2 % (24.0-44.0); MEAN CORPUSCULAR HEMOGLOBIN 29.9 pg (27.0-33.0); MEAN CORPUSCULAR HGB CONC 31.5 g/dl (32.0-36.5); MEAN CORPUSCULAR VOLUME 94.6 fl (80.0-96.0); MONO # 0.9 10^3/uL (0.0-0.8); MONO % 8.6 % (0.0-5.0); NEUTROPHILS # 8.3 10^3/uL (1.8-7.7); NEUTROPHILS % 83.3 % (36.0-66.0); PLATELET COUNT, AUTOMATED 135 10^3/uL (150-450); RED BLOOD COUNT 3.55 10^6/uL (4.30-6.10)
[2018-08-22 12:39] LABS: INR 1.19; PROTHROMBIN TIME 15.3 SECONDS (12.1-14.4)
[2018-08-22 12:40] LABS: PARTIAL THROMBOPLASTIN TIME 30.5 SECONDS (25.4-37.6)
--- NOTE | 2018-08-22 13:16 | REP ---
PA and lateral chest: Comparisons are 08/10/2018, 08/08/2018, 04/21/2018. There is a left pleural effusion, unchanged from all prior studies. There is right paramediastinal atelectasis/scarring, unchanged from all prior studies. There is chronic effacement right costophrenic angle, unchanged from all prior studies, pleural adhesion versus right pleural effusion. There is a dual-chamber pacemaker, unchanged. Impression: Chronic findings, unchanged from prior studies dating to 04/21/2018 as described. Electronically Signed by Carlos Gray MD 08/22/2018 01:08 P
[2018-08-22 13:49] LABS: ALBUMIN 2.7 GM/DL (3.2-5.2); ALT/SGPT 20 U/L (12-78); BILIRUBIN,DIRECT 0.2 MG/DL (0.0-0.2); BILIRUBIN,TOTAL 0.6 MG/DL (0.2-1.0); BLOOD UREA NITROGEN 23 MG/DL (7-18); CALCIUM LEVEL 8.1 MG/DL (8.8-10.2); CARBON DIOXIDE LEVEL 30 MEQ/L (21-32); CHLORIDE LEVEL 104 MEQ/L (98-107); CPK CREATINE PHOSPHOKINASE 45 U/L (39-308); CREATININE FOR GFR 0.81 MG/DL (0.70-1.30); GLOMERULAR FILTRATION RATE > 60.0 (>49); GLUCOSE, FASTING 83 MG/DL (70-100); LIPASE 78 U/L (73-393); MB/CK RELATIVE INDEX 3.11 (< OR =4); POTASSIUM SERUM 4.3 MEQ/L (3.5-5.1); SODIUM LEVEL 140 MEQ/L (136-145); TOTAL PROTEIN 6.4 GM/DL (6.4-8.2); TROPONIN I < 0.02 NG/ML (< 0.10)
[2018-08-22] MEDS ORDERED: ALBUTEROL 90 MCG/ACT 8GM HFA INHALER INH PRN (17:30)
[2018-08-22] MEDS ORDERED: FLUTICASONE PROP 0.05% NASAL SPRAY 16 GM (FLONASE) PRN (17:30)
[2018-08-22] MEDS ORDERED: ACETAMINOPHEN TAB 650MG DOSE (2X325MG) PO PRN (17:30)
[2018-08-22] MEDS: PERCOCET 5MG/325MG TAB PO PRN (21:09)
[2018-08-22 22:20] VITALS: BP 117/65
[2018-08-22] MEDS: HEPARIN SOD (PORCINE) 5000 UNITS/ML VIAL SC SCH (22:31)
[2018-08-22] MEDS: guaiFENesin ER 600 MG TAB PO PRN (22:31)
[2018-08-23 05:00] VITALS: BP 109/55
[2018-08-23] MEDS: LEVOTHYROXINE 88MCG TABLET (0.088 MG) PO SCH (05:36)
[2018-08-23] MEDS: HEPARIN SOD (PORCINE) 5000 UNITS/ML VIAL SC SCH ×3 (05:36→22:00)
[2018-08-23 06:41] LABS: BASO % 0.5 % (0.0-1.0); EOS # 0.1 10^3/uL (0.0-0.50); EOS % 1.6 % (0.0-3.0); HEMATOCRIT 34.5 % (42.0-52.0); HEMOGLOBIN 10.3 g/dl (13.5-17.5); LYMPH # 0.7 10^3/uL (1.5-4.5); MEAN CORPUSCULAR HGB CONC 29.9 g/dl (32.0-36.5); MEAN CORPUSCULAR VOLUME 100.6 fl (80.0-96.0); MONO # 0.8 10^3/uL (0.0-0.8); MONO % 9.6 % (0.0-5.0); NEUTROPHILS # 6.6 10^3/uL (1.8-7.7); NEUTROPHILS % 80.1 % (36.0-66.0); PLATELET COUNT, AUTOMATED 101 10^3/uL (150-450); RED BLOOD COUNT 3.43 10^6/uL (4.30-6.10); WHITE BLOOD COUNT 8.2 10^3/uL (4.0-10.0)
[2018-08-23 07:28] LABS: BLOOD UREA NITROGEN 19 MG/DL (7-18); CARBON DIOXIDE LEVEL 26 MEQ/L (21-32); CHLORIDE LEVEL 104 MEQ/L (98-107); CREATININE FOR GFR 0.79 MG/DL (0.70-1.30); GLOMERULAR FILTRATION RATE > 60.0 (>49); GLUCOSE, FASTING 78 MG/DL (70-100); POTASSIUM SERUM 4.9 MEQ/L (3.5-5.1); SODIUM LEVEL 136 MEQ/L (136-145)
--- NOTE | 2018-08-23 07:42 | HPE ---
DATE OF ADMISSION: 08/22/2018 My attending physician for this patient encounter is Dr. Colmenares. CHIEF COMPLAINT: Shortness of breath. HISTORY OF THE PRESENT ILLNESS: The patient is a 63-year-old male who presents to the emergency room with a chief complaint of shortness of breath and difficulty breathing. The patient has had recurrent pleural effusions, and he states that this feels like his pleural effusion. Patient was last admitted in the hospital on 08/08/2018 with a similar complaint. The patient says he first started noticing the difficulty breathing today and came into the hospital. The patient also says that he feels pain in his back, and he feels like there is fluid along the sides of his abdomen. The patient denies any trauma. Denies any cough or hemoptysis. Patient otherwise is doing well, he just feels uncomfortable due to his difficulty breathing. The patient follows with Dr. Braswell for pulmonology and Dr. Gordon for his oncology treatment. The patient did have stage IV small cell lung cancer in 2007, and he is status post chemotherapy and radiation. PAST MEDICAL HISTORY: Stage IV small cell lung cancer in 2008, status post chemotherapy and radiation. Atrial fibrillation. Sick sinus syndrome, status post pacemaker placement. Obstructive sleep apnea, on continuous positive airway pressure (CPAP). Chronic obstructive pulmonary disease (COPD). Hypothyroidism. PAST SURGICAL HISTORY: Chest tube placement. Pacemaker placement. Renal stents. Pleurodesis with talc on the right hemithorax. Port placement and removal. Partial colon resection. ALLERGIES: NIACIN. MEDICATIONS: - albuterol nebulizer - Ventolin inhaler - fluticasone - furosemide - guaifenesin - levothyroxine - spironolactone - ibuprofen SOCIAL HISTORY: The patient was a former smoker. The patient was a former drinker, but does not drink any alcohol anymore. The patient denies illicit drug use. The patient lives at home with his . They do not have any pets. FAMILY HISTORY: Patient says there is diabetes that runs in his family. REVIEW OF SYSTEMS: General: The patient denies fevers or chills. HEENT: Patient says he has a slight headache right now, and he always has a runny nose but denies any sore throat, changes in vision or changes in hearing. Cardiovascular: Patient denies chest pain. Respiratory: Patient does endorse shortness of breath, but denies cough. Gastrointestinal (GI): Patient denies abdominal pain, nausea, vomiting, or diarrhea. Genitourinary (): Patient denies any difficulty or pain with urination. Skin: Patient denies any rashes or lesions on his skin. Extremities: Patient denies any pain or swelling in his extremities. Neurological: Patient denies any numbness or tingling in his extremities. Lymphatics: Patient denies any lumps or bumps in his neck, axilla or groin. PHYSICAL EXAMINATION: Vital Signs: Temperature 98.0 degrees Fahrenheit, pulse 71, respiratory rate 20, blood pressure 93/67, pulse oximetry 95% on room air. General: Patient is an alert and oriented male patient who was leaning over the bedside table with a pillow on it when I walked into the room. Patient did not appear to be in any acute distress at this time. HEENT: Patient had an indentation on the skull that stretched across the top from ear to ear. Patient had anicteric sclerae and moist mucous membranes. The posterior pharynx was nonerythematous. Neck: Neck was supple with no lymphadenopathy and no stridor or carotid bruits were auscultated. Cardiovascular: Regular rate and rhythm with no murmurs. Respiratory: Clear to auscultation in the upper left lung field. There was little to no breath sounds in the lower left lung wells. The right lung field did have diminished breath sounds in the lower lung wells; however, they appeared clear. Abdomen: Soft, nontender to palpation with normoactive bowel sounds. Extremities: There was trace edema in the left ankle. There was no edema in the right ankle. Radial and dorsalis pedis pulses were equal bilaterally. Skin: Skin of the head, neck, back, arms, and legs was examined. Did not show any rashes or lesions. Neurologic Exam: Cranial nerves III-XII grossly intact bilaterally. Upper and lower extremities 5/5 strength. Patient reports good sensation in the upper and lower extremities. LABORATORY: CBC: White blood cells 10.0, hemoglobin 10.6, hematocrit 33.6, platelets 135. Chemistry: Sodium 140, potassium 4.3, chloride 104, bicarbonate 30, BUN 23, creatinine 0.81, glucose 83, calcium 8.1, total bilirubin 0.6, direct bilirubin 0.2, AST 12, ALT 20, alkaline phosphatase 37, total creatinine kinase 45, troponins less than 0.02, CK-MB 1.0, total protein 6.4, albumin 2.7, lipase 78. PT 15.3, INR 1.19, APTT 30.5. IMAGING: A chest x-ray performed on 08/22/2018 showed left pleural effusion, unchanged from all prior studies and right paramediastinal atelectasis/scarring, unchanged from all prior studies. There is chronic effacement of the right costophrenic angle, which is also unchanged, a dual chamber pacemaker is also seen. ASSESSMENT AND PLAN: Patient is a 63-year-old male who presents to the hospital with increasing shortness of breath, which is most likely secondary to a recurrence of patient's pleural effusion. 1. Pleural effusion. Patient will be admitted and will be seen by Dr. Conte tomorrow for thoracentesis. We will continue to monitor. 2. History of atrial fibrillation. At this point, patient appears in sinus rhythm. Patient has refused anticoagulation in the past. 3. Obstructive sleep apnea. On CPAP. May use home CPAP. 4. History of stage IV lung cancer, status post chemotherapy and radiation in 2007. We will monitor the patient, but he will followup as an outpatient. 5. Hypothyroidism. We will continue his Synthroid. 6. Thrombocytopenia. We will continue to monitor. 7. Deep vein thrombosis (DVT) prophylaxis. Lovenox. My faculty preceptor for this patient encounter was physically present during the encounter and was fully available. All aspects of the patient interview, examination, medical decision making process, and medical care plan development were reviewed and approved by the faculty preceptor. The faculty preceptor is aware and concurs with the plan as stated in the body of this note and will attest to such by his/her cosignature. I have both independently examined this patient as well as reviewed the H&P. I have discussed in detail with the resident the findings and plan of treatment as documented in the resident's note. Elizabeth TEJEDA
--- NOTE | 2018-08-23 08:41 | REP ---
CT of the chest without IV contrast for pleural effusion: Comparison is to 09/02/2018. There is a [id number] left pleural effusion, unchanged. There is right perihilar atelectasis/fibrosis, possibly postradiation change. There is volume loss in the right hemithorax with mediastinal shift to the right. This is unchanged. There is no mediastinal or axillary lymph node enlargement. Evaluation for hilar lymph node enlargement is insensitive in the absence of IV contrast. The unenhanced thoracic aorta is unremarkable. Cardiac size is normal. The visualized upper abdominal contents are unremarkable. There is no adrenal mass. Impression: No interval change. There is a persisting [id number] left pleural effusion. Electronically Signed by Carlos Gray MD 08/23/2018 08:33 A
[2018-08-23] MEDS: SPIRONOLACTONE 25 MG TAB PO SCH (08:48)
[2018-08-23] MEDS: FUROSEMIDE 40 MG TAB PO SCH (08:48)
[2018-08-23 10:38] LABS: CK-MB VALUE MASS < 1.0 NG/ML (<3.6); CPK CREATINE PHOSPHOKINASE 39 U/L (39-308); MB/CK RELATIVE INDEX 2.56 (< OR =4); TROPONIN I < 0.02 NG/ML (< 0.10)
[2018-08-23] MEDS: ALBUTEROL SULFATE 2.5 MG/0.5 ML INH NEB SOLN NEB PRN ×2 (12:06→22:35)
[2018-08-23 13:56] VITALS: BP 97/52
[2018-08-23 14:02] LABS: PH BODY FLUID 7.488 UNITS (NOT ESTABLISHED); SOURCE, BODY FLUID pH PLEURAL
[2018-08-23] MEDS: PERCOCET 5MG/325MG TAB PO PRN ×2 (14:03→22:35)
--- NOTE | 2018-08-23 14:12 | REP ---
Portable chest, single AP upright view, 01:46 p.m.: Comparison is 08/22/2018. The previously identified left pleural effusion is decreased in size on this study performed post thoracentesis. There is no left pneumothorax. There is atelectasis in the left lung inferiorly, likely a consequence of the previous effusion. There is chronic fibrosis/infiltrate in the right paramediastinal area, unchanged. There is chronic effacement right costophrenic angle compatible with pleural adhesion. Cardiac size is normal. Dual chamber pacemaker, unchanged. Impression: The left pleural effusion has decreased in size post thoracentesis. There is no pneumothorax. There is atelectasis in the lung in the left costophrenic angle, likely a consequence of the pleural effusion. Electronically Signed by Carlos Gray MD 08/23/2018 02:04 P
[2018-08-23 14:17] LABS: SOURCE, BODY FLUID PLEURAL
[2018-08-23 14:18] LABS: APPEARANCE, BODY FLUID HAZY (CLEAR); PLEURAL FL COLOR YELLOW (COLORLESS)
[2018-08-23 14:34] LABS: AMYLASE, BODY FLUID 13 U/L (NOT ESTABLISHED); CHOLESTEROL, BODY FLUID 51 MG/DL (NOT ESTABLISHED); LDH, BODY FLUID 151 U/L (NOT ESTABLISHED); SOURCE, BODY FLUID AMYLASE PLEURAL; SOURCE, BODY FLUID CHOL PLEURAL; SOURCE, BODY FLUID GLUCOSE PLEURAL; SOURCE, BODY FLUID LDH PLEURAL; SOURCE, BODY FLUID TOT PROTEIN PLEURAL; SOURCE, BODY FLUID TRIG PLEURAL; TOTAL PROTEIN, BODY FLUID 3.1 G/DL (NOT ESTABLISHED); TRIGLYCERIDE, BODY FLUID 73 MG/DL (NOT ESTABLISHED)
--- NOTE | 2018-08-23 17:11 | CR ---
DATE OF CONSULTATION: 08/23/2018 CHIEF COMPLAINT: Left chest pain and shortness of breath. HISTORY OF PRESENT ILLNESS: Patient is a 63-year-old male with a past medical history of small-cell lung cancer diagnosed in 2007, reportedly limited stage but with history of SVC syndrome status post treatment, chronic obstructive pulmonary disease (COPD), obstructive sleep apnea (KRISTAN), history of recurrent pleural effusions. Patient initially presented with pleural effusion last fall in 2017. He had drainage of his right pleural effusion as well as bronchoscopy with biopsies in the right upper lobe which were negative on cytology and the fluid was also negative for any malignancy. He then had a talc pleurodesis on the right side and did not have recurrence of any significant fluid. Patient was recently admitted in the end of July with complaint of shortness of breath and was noted to have a moderate to large left pleural effusion status post thoracentesis. The fluid cytology at that time was also negative for malignancy. He was discharged and reported improvement in his breathing after discharge, however in the past few days he has started noticing some increasing shortness of breath as well as some pain in his left back which he feels is due to reaccumulation of fluid. He denied any significant fevers or chills, had no cough or hemoptysis. He continues to use his albuterol nebulizer during the day as well as a rescue inhaler occasionally. The patient denies any increased lower extremity edema. He has no abdominal pain, no nausea or vomiting. PAST MEDICAL HISTORY: 1. History of small-cell lung cancer diagnosed in 2007 presented with SVC syndrome, was reportedly limited stage. Status post chemotherapy and concomitant radiation which was followed by prophylactic cranial irradiation and he has been surveilled with Dr. Gordon for oncology since then. 2. History of COPD. 3. History of KRISTAN on bilevel positive airway pressure (BIPAP) with a setting of 17/13. 4. Atrial fibrillation. 5. Sick sinus syndrome status post pacemaker placement. 6. Hypothyroidism. PAST SURGICAL HISTORY: 1. History of pacemaker placement. 2. Renal stents. 3. Talc pleurodesis on the right side. 4. Partial colon resection for a polyp. ALLERGIES: NIACIN. HOME MEDICATIONS: - albuterol - Ventolin - fluticasone - furosemide - guaifenesin - levothyroxine - spironolactone - ibuprofen SOCIAL HISTORY: Patient is a former smoker and former drinker. Does not drink alcohol anymore. Lives at home with his . They do not have any pets. He is an avid yumiko, however has not been able to avery as much as usual due to his breathing. PHYSICAL EXAMINATION: Temperature 98.5, no fevers since admission, pulse 81, respirations 20, blood pressure 109/55, oxygen saturation 98% on 2 liters nasal cannula. GENERAL: Patient is awake and alert, is sitting in bed, does not appear to be in acute distress, is not using any accessory muscles of respiration. HEENT: He is normocephalic, atraumatic. There is an indentation noted on the top of his skull that goes across from ear to ear, it is not acute. Pupils are equal and reactive. Neck is supple. Trachea is midline. CARDIOVASCULAR: Regular rate and rhythm, normal S1, S2. Unable to appreciate any murmurs. RESPIRATORY: Right lung with severely diminished breath sounds. Left lung with decreased breath sounds at the left base and occasional crackles at the base. No significant wheezing or rhonchi noted. ABDOMEN: Soft, nontender, nondistended. EXTREMITIES: No lower extremity edema noted. LABORATORY DATA: WBC 8.2, hemoglobin 10.3, glucose 101. Chemistry: Sodium 136, potassium 4.9, chloride 104, bicarbonate 26, BUN 19, creatinine 0.79, glucose 78. INR was 1.19. Chest CT showed right lung with volume loss. There is peribronchovascular thickening and opacities on the right lung which are chronic and appear to be likely secondary to radiation changes and scarring. On the right lower lobe there are some more peripheral opacities with intralobular septal thickening and some pleural thickening versus trace effusion on the right. On the left side, there is a moderate to large pleural effusion with some associated atelectasis. ASSESSMENT AND PLAN: Patient is a 63-year-old male with a history of small-cell lung cancer, reportedly limited stage status post chemotherapy and radiation, chronic obstructive pulmonary disease (COPD), obstructive sleep apnea (KRISTAN), hypothyroidism, sick sinus syndrome, history of recurrent pleural effusions, had drainage and talc pleurodesis on the right side and now with recurrent effusions on the left. He had most recently been admitted and had a thoracentesis done on 08/10/2018. Fluid studies at that time showed that patient did have significant white blood cells (WBCs) in the fluid and there were a mix of poly and lymphocyte with more poly predominant cells. His pH was normal and glucose was normal. It appeared to be exudative on his last admission. The cytology was negative for any malignant cells in the pleural fluid. He was discharged and had initially reported improvement in his breathing, however in the past few days he had noted increasing shortness of breath and some discomfort in the left side of his chest and he suspected that he had reaccumulation of his pleural effusion. On CT, patient has chronic changes on the right lung likely secondary to his history of previous cancer and radiation. On the left, his CT showed a moderate to large pleural effusion with some associated atelectasis. Discussed with the patient that given his recurrent pleural effusion of currently not clear etiology that we could repeat a diagnostic and therapeutic thoracentesis at this time and if there is further accumulation of the fluid could consider referral for a PleurX catheter so that he could auto-pleurodese and continue drainage of the fluid versus placement of a chest tube with drainage and then a talc pleurodesis. Patient at this time would prefer to have a thoracentesis and drainage as he does not want a prolonged hospitalization currently. He is willing to have a PleurX catheter placed if needed if there is recurrence of his effusion. Therefore, patient was consented for a thoracentesis on the left side. He had approximately 1.7 liters of some cloudy, yellow-orange pleural fluid drained. He tolerated the procedure well, did not have significant chest pains noted during the procedure. Post-procedure he did report some improvement in his shortness of breath. Post-procedure chest x-ray did not show any evidence of pneumothorax. There is some atelectasis in the left base and trace left pleural effusion still. Will followup with the results of the fluid studies. Patient does need a followup with pulmonary as well as with Dr. Kwon on an outpatient basis for possible PleurX catheter. While he is here, will continue with his home medications including his home inhalers. Patient can likely be discharged tomorrow morning if there are no acute issues overnight after his thoracentesis and pending the results of his fluid studies. Deep venous thrombosis (DVT) prophylaxis. ILEANA
[2018-08-23 20:00] VITALS: BP 101/58
--- NOTE | 2018-08-23 20:15 | IPN ---
DATE: 08/23/2018 The patient is seen and examined. Admitted yesterday. Denies any chest pain, pressure or discomfort. Reported chest wall pain has resolved. Denies any shortness of breath, currently back to baseline. VITAL SIGNS: Temperature 98, pulse 71, respirations 18, blood pressure (BP) 97/52, pulse oximetry 96% on room air. LABORATORY: White blood count (WBC) 8.2, hemoglobin and hematocrit 10.3/34.5, platelets 101, sodium 136, potassium 4.9, chloride 104, bicarbonate 26, BUN 19, creatinine 0.79, cardiac enzymes negative times two. PHYSICAL EXAMINATION: GENERAL: The patient alert in no acute distress. HEENT: Normocephalic, atraumatic. PULMONARY: Bilateral clear. Diminished breath sounds in left lower lobe. CARDIAC: Regular. ABDOMEN: Soft, nontender. EXTREMITIES: Trace edema in bilateral lower extremities. ASSESSMENT AND PLAN: This is a 53-year-old patient with underlying medical history of chest tube, pacemaker placement, renal stent, history of talc pleurodesis, right hemithorax, placement of chemo port removal, partial colon resection, history of small cell lung cancer diagnosed 2007, currently in remission, presented with left-sided chest wall pain and shortness of breath with recurrent left-sided pleural effusion. PROBLEMS: 1. Recurrent left-sided pleural effusion, pulmonology has been consulted. Option has been discussed with the patient by trucking manager. Recommend thoracentesis and followup with Dr. Kwon for PleurX catheter. Fluid study has been sent. Further recommendations as per Dr. Conte. X-rays are appreciated. 2. History of atrial fibrillation. The patient refused anticoagulation in the past, currently in sinus rhythm. 3. Obstructive sleep apnea. Encourage CPAP. 4. History of stage IV lung cancer, questionable small cell, status post chemoradiation in 2007, currently in remission. Outpatient followup with Dr. Goodman. 5. Hypothyroidism. Continue Synthroid. Thrombocytopenia. Will continue to monitor. 6. History of sick sinus syndrome. The patient has a pacemaker. 7. Chronic obstructive pulmonary disease (COPD) continue current medications. Further recommendations per trucking manager. 8. History of fluid overload. Continue Lasix and spironolactone. 9. Deep vein thrombosis (DVT) prophylaxis, heparin subcutaneous . DISPOSITION: Likely will be undergoing thoracentesis by Dr. Conte. Likely discharged in the next 24 hours. Home safety has been consulted.
--- NOTE | 2018-08-23 20:50 | ECGEPIP ---
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
[2018-08-23] MEDS: guaiFENesin ER 600 MG TAB PO PRN (22:35)
[2018-08-24 04:00] VITALS: BP 106/58
[2018-08-24] MEDS: HEPARIN SOD (PORCINE) 5000 UNITS/ML VIAL SC SCH (05:27)
[2018-08-24] MEDS: LEVOTHYROXINE 88MCG TABLET (0.088 MG) PO SCH (05:27)
--- NOTE | 2018-08-24 06:33 | RO ---
DATE OF PROCEDURE: 08/23/2018 INDICATION: Recurrent left pleural effusion. PREPROCEDURE DIAGNOSIS: Left pleural effusion. POSTPROCEDURE DIAGNOSIS: Left pleural effusion. PROCEDURE: Thoracentesis. SURGEON: Dr. Tiffanie Conte CONSENT: Obtained from the patient prior to the procedure. Indication, risks and benefits were explained at length. PROCEDURE SUMMARY: A time out was performed and the appropriate site was confirmed and marked. My hands were washed immediately prior to the procedure. Sterile technique was maintained throughout the procedure, including surgical cap, mask, protective eye wear, sterile gown, and sterile gloves. The patient was prepped and draped in a sterile manner using chlorhexidine scrub after the appropriate level was percussed and confirmed by ultrasound. The patient was sitting in the sitting position. 1% lidocaine was used to anesthetize the skin, subcutaneous tissue and superior aspect of the rib, periosteum and parietal pleura. A finder needle was then introduced over the superior aspect of the rib to locate the pleural fluid. Light yellow fluid was aspirated. A scalpel blade was used to anny the skin at the insertion site. A Ygyk-Q-Zwfrwosz needle was then introduced through the skin incision into the pleural space using negative aspiration pressure. Cloudy yellow orange pleural fluid was aspirated into the Prpisj-V-Ntlfavqo syringe. The thoracentesis catheter was then threaded over the needle without difficulty. The patient then proceeded to have drainage of his pleural effusion. Approximately 1.7 liters of yellow-orange colored fluid was removed without difficulty. The patient tolerated the procedure well. The catheter was then removed and a dressing was placed on top. There were no immediate complications noted during the procedure. A post procedure chest x- ray did not show any evidence of pneumothorax and there was improvement in the left pleural effusion with some small amount of effusion left and some atelectasis in the left base. The fluid was sent for studies. Estimated blood loss was less than 2 mL. [facility]
[2018-08-24 09:14] LABS: HEMATOCRIT 33.2 % (42.0-52.0); HEMOGLOBIN 10.3 g/dl (13.5-17.5); MEAN CORPUSCULAR HEMOGLOBIN 29.5 pg (27.0-33.0); MEAN CORPUSCULAR VOLUME 95.1 fl (80.0-96.0); PLATELET COUNT, AUTOMATED 143 10^3/uL (150-450); RED BLOOD COUNT 3.49 10^6/uL (4.30-6.10); WHITE BLOOD COUNT 5.8 10^3/uL (4.0-10.0)
[2018-08-24 09:33] LABS: BLOOD UREA NITROGEN 23 MG/DL (7-18); CARBON DIOXIDE LEVEL 33 MEQ/L (21-32); CHLORIDE LEVEL 104 MEQ/L (98-107); GLOMERULAR FILTRATION RATE > 60.0 (>49); GLUCOSE, FASTING 82 MG/DL (70-100); MAGNESIUM LEVEL 2.2 MG/DL (1.8-2.4); SODIUM LEVEL 139 MEQ/L (136-145)
[2018-08-24] MEDS: ALBUTEROL SULFATE 2.5 MG/0.5 ML INH NEB SOLN NEB PRN (09:48)
[2018-08-24] MEDS: SPIRONOLACTONE 25 MG TAB PO SCH (09:52)
[2018-08-24] MEDS: FUROSEMIDE 40 MG TAB PO SCH (09:52)
[2018-08-24] MEDS: guaiFENesin ER 600 MG TAB PO PRN (09:54)
[2018-08-24 10:11] LABS: LDH LACTATE DEHYDROGENASE 186 U/L (87-241)
[2018-08-24] MEDS ORDERED: AUGM875T28 PO (11:12)
--- NOTE | 2018-08-24 15:04 | IPN ---
DATE: 08/24/2018 The patient had a thoracentesis yesterday with removal of approximately 1700 mL of cloudy, yellow-orange fluid. This morning, he reports that his breathing has been well. He denies any significant shortness of breath or dyspnea on exertion. He denies any cough. He does have some slight chest discomfort in the left posterior chest, but denies any pleuritic chest pain. He had no fevers overnight. PHYSICAL EXAMINATION: Temperature 97.2, pulse 70, respirations 17, blood pressure 106/58, oxygen saturation 96% on room air. GENERAL: The patient is sitting in bed. Does not appear to be in any acute distress. He is not using any accessory muscles of respiration. He is speaking in complete sentences. HEENT: Normocephalic, atraumatic. There is an indentation over the top of the skull that goes from ear to ear and which is not acute. Pupils are reactive. NECK: Supple. Trachea is midline. CARDIOVASCULAR: Regular rate and rhythm. Normal S1, S2. Unable to appreciate any murmurs. RESPIRATORY: Right lung with diminished breath sounds. Left lung with a few crackles at the bases. No wheezing or rhonchi. ABDOMEN: Soft, nontender, nondistended. EXTREMITIES: No lower extremity edema noted. LABORATORIES: WBC 5.8, hemoglobin 10.3, platelets 143. Chemistry: Sodium is 139, potassium 4.0, chloride 104, bicarbonate 33, BUN 23, creatinine 0.8, glucose 82, LDH was 186. Chest x-ray done yesterday showed that on the left side there is improvement in the pleural fluid, status post drainage with a small residual pleural effusion and atelectasis of the left base. His right side has chronic volume loss and right upper lobe opacity, as well as some right pleural thickening versus trace pleural fluid. Pleural fluid studies showed a pH of 7.488, WBC 995, polymorphically predominant at 64%, there are 36% lymphocytes, glucose 97, total protein 3.1, LDH is 153, amylase and cholesterol are low, triglycerides are low at 73. ASSESSMENT AND PLAN: The patient is a 53-year-old male patient who has small cell lung cancer, reportedly limited CA, status post chemotherapy and radiation, chronic obstructive pulmonary disease (COPD), obstructive sleep apnea, hypothyroidism, sick sinus syndrome with a history of recurrent pleural effusion, had a drainage and talc pleurodesis on the right side and now with recurrent effusion on the left. The patient last was admitted at the end of July and had a thoracentesis at that time. Fluid studies done then showed significant WBC and a mix of poly and lymphocytes; however, it as mostly poly predominant cells. It was exudative on the last admission and his pH and glucose were normal. His cytology was negative for any malignant cells and his cultures were negative. The patient was discharged; however, in the past few days he had noticed increasing shortness of breath and discomfort in the left side of his chest. He had a CT of the chest done on this admission, which showed chronic changes in the right lung, likely secondary to his history previous cancer and radiation and on his left he had a moderate to large pleural effusion with associated atelectasis. The patient had a thoracentesis done yesterday with drainage of approximately 1.7 liters of cloudy, yellow-orange pleural fluid. The fluid studies showed that he again had elevated WBC in the fluid with mostly poly predominant cell count, although there were some lymphocytes as well. His fluid is exudative. The glucose is not low and his pH is not low. Fluid studies do not suggest a complicated parapneumonic or empyema; however, given the WBC with the poly predominance, there may still be some possible infectious component to the effusion, especially given that it is exudative. Would expect more of a lymphocytic predominance if it was more chronic or related to malignancy. Therefore, we will give a trial of Augmentin for 7 days. We will also followup his fluid cultures and cytology as an outpatient. Discussed with the patient that if the fluid were to reaccumulate that he could be a candidate for a PleurX catheter for drainage and for auto pleurodesis instead of a talc pleurodesis, which has more potential to be unsuccessful. The patient also did not want a prolonged hospitalization, which is why he elected to proceed with thoracentesis and then followup as an outpatient. The patient will be discharged today and followup with Dr. Kwon as an outpatient and with Dr. Braswell, whom he has been seeing for pulmonary. We will continue the rest of his home medications.
--- NOTE | 2018-08-24 18:25 | DSES ---
DATE OF ADMISSION: 08/22/2018 DATE OF DISCHARGE: 08/24/2018 PRIMARY CARE PROVIDER: Dr. Carlos Munguia CARDIOTHORACIC SURGEON: Dr. Tiffanie Conte, covering Dr. Braswell THORACIC SURGEON: Dr. Juan M Kwon who is currently away on vacation. FINAL DIAGNOSES: 1. Recurrent left-sided pleural effusion. 2. History of atrial fibrillation. 3. Obstructive sleep apnea. 4. History of small-cell lung cancer. 5. Hypothyroidism. 6. Sick sinus syndrome. 7. Chronic obstructive pulmonary disease (COPD). 8. History of fluid overload. HISTORY OF PRESENT ILLNESS: This is a 63-year-old male patient with underlying medical history of small-cell lung cancer diagnosed in 2007, stage IV status post chemoradiation, history of atrial fibrillation, sick sinus syndrome with pacemaker, obstructive sleep apnea on continuous positive airway pressure (CPAP), chronic obstructive pulmonary disease (COPD), hypothyroidism, pulmonary hypertension who presented with recurrent left-sided pleural effusion. The patient was recently admitted on 08/08/2018 with similar complaints. The patient reported shortness of breath and pain on his left side of his chest. Denies any trauma. Denies any cough or hemoptysis. HOSPITAL COURSE: The patient was admitted to the hospital. Symptoms overnight resolved. X-rays and CT scan appreciated. Consulted consultant teacher, Dr. Conte, status post thoracentesis in which 1.7 liters of fluid was drained. After discussion with the patient, Dr. Conte recommended to followup with Dr. Kwon when he is back from vacation in seven days for PleurX catheter and also recommended outpatient one-week course of oral antibiotics. The patient currently is afebrile. Denies any chest pain, pressure or discomfort. Denies any shortness of breath. Reported back to baseline, ready to be discharged for further care as outpatient. VITAL SIGNS: Temperature 97.2, pulse 70, respiratory rate 17, blood pressure 106/58, pulse oximetry 96% on room air. LABORATORY DATA: WBC 5.8, hemoglobin and hematocrit 10.3/33.2, platelets 143. Chemistry: Sodium 139, potassium 4, chloride 104, bicarbonate 33, BUN 23, creatinine 0.8. Cardiac enzymes negative times two. PHYSICAL EXAMINATION: GENERAL: The patient alert, comfortable, in no acute distress. HEENT: Normocephalic, atraumatic. PULMONARY: Bilaterally clear. CARDIAC: Regular, S1, S2. ABDOMEN: Soft. EXTREMITIES: Trace edema of bilateral lower extremities. DISCHARGE MEDICATIONS: - Augmentin 875/125 mg by mouth twice a day for seven days - Ventolin inhalers every four hours as needed - DuoNeb nebulizer treatment every four hours as needed - Flonase daily as needed - Lasix 40 mg by mouth daily - Mucinex 1200 mg by mouth daily as needed - ibuprofen 600 mg by mouth every six hours as needed - levothyroxine 88 mcg by mouth daily - spironolactone 25 mg by mouth daily DISCHARGE INSTRUCTIONS: Please see primary care provider in seven days. Please see Dr. Braswell in seven days. Please see Dr. Kwon in seven days for possible PleurX catheter. Return to the hospital if symptoms worsen or if develop fever, shortness of breath, or cough.
== END 2018-08-24 11:25 | disposition home or self-care (01) | DRG 187 ==
LOC: M ED 11:33 → M ED INP 16:18 → M MS4PR 22:15 → UNDODISIN 22:19
PROVIDERS: ADMIT Internal Medicine; ATTEND Hospitalist
PROC: 0W9B3ZZ Drainage of Left Pleural Cavity, Percutaneous Approach (ICD-10-PCS; principal; 2018-08-23)
DX: J90 Pleural effusion, not elsewhere classified (principal); J98.11 Atelectasis; I48.91 Unspecified atrial fibrillation; G47.33 Obstructive sleep apnea (adult) (pediatric); J44.9 Chronic obstructive pulmonary disease, unspecified; E03.9 Hypothyroidism, unspecified; D69.6 Thrombocytopenia, unspecified; Z95.0 Presence of cardiac pacemaker; Z85.118 Personal history of other malignant neoplasm of bronchus and lung; Z92.3 Personal history of irradiation; Z92.21 Personal history of antineoplastic chemotherapy; Z90.49 Acquired absence of other specified parts of digestive tract; Z87.891 Personal history of nicotine dependence; Z79.1 Long term (current) use of non-steroidal anti-inflammatories (NSAID); Z79.899 Other long term (current) drug therapy; Z88.8 Allergy status to other drugs, medicaments and biological substances

== ENCOUNTER → 2018-09-09 | Outpatient (CLI) | payer OTHER ==
[~2018-09-09] MED LIST changes: +ALBU83IN NEB; +AUGM875T28 PO; +ISOVUE-370 76% 125ML VIAL (Q9967 PER ML) As Ordered ONE
--- NOTE | 2018-09-09 10:24 | REP ---
CT HEAD WITHOUT AND WITH CONTRAST: HISTORY: Lung carcinoma. CONTRAST: Isovue 370 75 mL. Areas of decreased attenuation are present in the periventricular white matter. This represents small vessel ischemic disease. There is no intraparenchymal hemorrhage, mass or midline shift. There is no abnormal enhancement. The ventricular system and cortical sulci are dilated consistent with minimal volume loss. There is no extracerebral collection. The sinuses are clear. IMPRESSION: 1. Small vessel ischemic disease. 2. Minimal volume loss. Electronically Signed by Miguel Brown MD 09/09/2018 10:26 A
--- NOTE | 2018-09-09 15:11 | REP ---
CT CHEST WITH IV CONTRAST: HISTORY: Small cell lung carcinoma. Recurrent left pleural effusion. Comparison chest CT study is from August 23, 2018 and August 08, 2018. CT CONTRAST DOSE: 100 mL of intravenous Isovue 370. CT FINDINGS: The left pleural effusion has recurred moderate in size, essentially unchanged from the August 23, [address] study. No pleural nodularity is appreciated. No pleural-based mass lesion is seen. There is post-treatment collapse and fibrosis in the perihilar region of the right lung, and there is chronic right pleural thickening again noted, unchanged from the August 08, 2018 study. No new lung infiltrate or mass lesion is observed. No adrenal lesion is seen. There is mild peripancreatic fat streaking which is unchanged from prior studies. The patient is status post cholecystectomy. No pericardial effusion is seen. Vascular calcification is noted. A pacemaker is visible in the right heart via the left side. IMPRESSION: Recurrent moderate-sized left pleural effusion. Extensive chronic pleuroparenchymal changes on the right. Electronically Signed by Justus Chambers MD 09/09/2018 04:05 P
== END ==
LOC: M RAD 09:28
PROVIDERS: ATTEND Internal Medicine Medical Oncology
DX: R05 Cough (principal); C34.90 Malignant neoplasm of unspecified part of unspecified bronchus or lung; R51 Headache; H53.9 Unspecified visual disturbance; J90 Pleural effusion, not elsewhere classified; Z95.0 Presence of cardiac pacemaker
CPT/HCPCS: 70470; 71260; Q9967

== ENCOUNTER 2018-09-12 20:16 | Inpatient (IN) | payer OTHER ==
[~2018-09-12] VITALS: Ht 177.8 cm; Wt 96.1 kg
[~2018-09-12 20:16] MED LIST changes: -ISOVUE-370 76% 125ML VIAL (Q9967 PER ML) As Ordered ONE
[2018-09-12 20:59] LABS: BASO # 0.1 10^3/uL (0.0-0.2); EOS # 0.1 10^3/uL (0.0-0.50); EOS % 2.1 % (0.0-3.0); HEMATOCRIT 32.9 % (42.0-52.0); HEMOGLOBIN 10.6 g/dl (13.5-17.5); LYMPH # 0.7 10^3/uL (1.5-4.5); MEAN CORPUSCULAR HEMOGLOBIN 29.4 pg (27.0-33.0); MEAN CORPUSCULAR HGB CONC 32.2 g/dl (32.0-36.5); MEAN CORPUSCULAR VOLUME 91.4 fl (80.0-96.0); MONO # 0.5 10^3/uL (0.0-0.8); MONO % 8.9 % (0.0-5.0); NEUTROPHILS # 4.4 10^3/uL (1.8-7.7); NEUTROPHILS % 75.8 % (36.0-66.0); PLATELET COUNT, AUTOMATED 163 10^3/uL (150-450); WHITE BLOOD COUNT 5.9 10^3/uL (4.0-10.0)
[2018-09-12 21:17] LABS: INR 1.11; PROTHROMBIN TIME 14.5 SECONDS (12.1-14.4)
[2018-09-12 21:18] LABS: PARTIAL THROMBOPLASTIN TIME 33.3 SECONDS (25.4-37.6)
[2018-09-12 21:34] LABS: ALT/SGPT 15 U/L (12-78); BILIRUBIN,DIRECT < 0.1 MG/DL (0.0-0.2); BILIRUBIN,TOTAL 0.3 MG/DL (0.2-1.0); BLOOD UREA NITROGEN 24 MG/DL (7-18); CALCIUM LEVEL 8.8 MG/DL (8.8-10.2); CARBON DIOXIDE LEVEL 31 MEQ/L (21-32); CHLORIDE LEVEL 108 MEQ/L (98-107); CREATININE FOR GFR 0.79 MG/DL (0.70-1.30); GLOMERULAR FILTRATION RATE > 60.0 (>49); GLUCOSE, FASTING 92 MG/DL (70-100); SODIUM LEVEL 143 MEQ/L (136-145); TOTAL PROTEIN 7.2 GM/DL (6.4-8.2)
--- NOTE | 2018-09-12 21:40 | REP ---
Clinical: Recurrent left pleural effusion. Technique: Axial noncontrast images from the thoracic inlet to the upper abdomen with coronal and sagittal re-formations. Comparison: 09/09/2018. Findings: Moderate left pleural effusion and passive left lower lobe atelectasis may be slightly increased from prior examination. Post therapeutic changes with consolidation / collapse and fibrosis involving the lower mediastinal right lung is again noted, but current examination demonstrates increased areas of nodular opacity extending to the right lower lobe which require further investigation/follow-up. There is no evidence for pneumothorax. Mediastinum is stable. Evaluation for adenopathy is limited due to the lack of contrast and surrounding perihilar opacities. Musculoskeletal structures are intact/stable. Limited upper abdomen demonstrates normal bilateral adrenal glands along with peripancreatic inflammatory stranding and small suspected upper abdominal adenopathy. Impression: 1. Moderate left pleural effusion is again identified and appears slightly increased when compared to 09/09/2018. 2. New subtle areas of nodular infiltrate/atelectasis involving the right lower lobe when compared to prior examination. Electronically Signed by Trell Gibson MD 09/12/2018 09:31 P
--- NOTE | 2018-09-12 21:43 | REP ---
Clinical: Shortness of breath. Pleural effusion. Technique: PA and lateral. Comparison: 09/03/2018. Findings: Pleuroparenchymal changes involving the right hemithorax are again appreciated. Small to moderate left pleural effusion again noted and similar to prior examination. No evidence for pneumothorax. The mediastinum and cardiac silhouette appear relatively stable. Skeletal structures intact. Impression: No significant change from prior examination. Continued evidence for small to moderate left pleural effusion and chronic right sided pleuroparenchymal changes. Electronically Signed by Trell Gibson MD 09/12/2018 09:34 P
[2018-09-12] MEDS ORDERED: ISOVUE-370 76% 125ML VIAL (Q9967 PER ML) As Ordered ONE (22:03)
[2018-09-12] MEDS ORDERED: ZYRT10CA5 PO (22:15)
--- NOTE | 2018-09-12 23:08 | REPVR ---
EXAM: CT Angiography Chest With Contrast EXAM DATE/TIME: 09/12/2018 10:11 PM CLINICAL HISTORY: 63 years old, male; Signs and symptoms; Shortness of breath; Additional info: Request of dr. Kwon R/O david TECHNIQUE: Imaging protocol: Axial computed tomographic angiography images of the chest with intravenous contrast using CT angiography protocol. Coronal and sagittal reformatted images were created and reviewed. 3D rendering: MIP reconstructed images were created and reviewed. Radiation optimization: All CT scans at this facility use at least one of these dose optimization techniques: automated exposure control; mA and/or kV adjustment per patient size (includes targeted exams where dose is matched to clinical indication); or iterative reconstruction. Contrast material: isovue 370 Contrast volume: 75 ml Contrast route: iv COMPARISON: CT ANGIO CHEST 08/08/2018 2:20 AM FINDINGS: Tubes, catheters and devices: There is a transvenous pacemaker in place. Pulmonary arteries: There is opacification of the pulmonary arteries with no evidence of pulmonary embolus. Aorta: There is opacification of the aorta which appears intact. Pleural space: There is a moderate left pleural effusion but similar to the previous exams. Heart: The heart is normal in size. There is no evidence of pericardial effusion. Mediastinum: 12 CM wedge-shaped area of consolidated lung at the right hilum and extending into the right apical portion of the lung. This is very similar on the previous 2 exams. There are numerous air bronchograms. In addition there is a wedge-shaped area of consolidated lung at the right lung base also seen on previous exams. IMPRESSION: 1. No evidence of pulmonary embolus. 2. Consolidation of much of the right lung similar to the previous 2 exams with air bronchograms. 3. Moderate left pleural effusion similar to the previous exams as well. Electronically signed by: Zhang Gandhi On 09/12/2018 23:07:38 PM
[2018-09-12] MEDS ORDERED: ONDANSETRON 4MG/2ML VIAL (J2405) IV PRN (23:30)
[2018-09-12 23:42] LABS: TROPONIN I < 0.02 NG/ML (< 0.10)
[2018-09-13] VITALS (16 sets, daily range): BP systolic 90–133; BP diastolic 54–66
[2018-09-13] MEDS: LevoFLOXacin IV 500 MG in APPROPRIATE DILUENT 1 EA IV SCH ×2 (00:51→23:05)
[2018-09-13] MEDS: guaiFENesin ER 600 MG TAB PO SCH ×3 (00:51→20:47)
[2018-09-13] MEDS: IPRATROPIUM 0.5MG/ALBUTEROL 2.5MG INH SOL UD 3ML (DUONEB)(J7620) NEB SCH ×6 (04:00→19:59)
[2018-09-13 05:39] LABS: HEMATOCRIT 29.7 % (42.0-52.0); HEMOGLOBIN 9.6 g/dl (13.5-17.5); MEAN CORPUSCULAR HEMOGLOBIN 29.4 pg (27.0-33.0); MEAN CORPUSCULAR HGB CONC 32.3 g/dl (32.0-36.5); MEAN CORPUSCULAR VOLUME 90.8 fl (80.0-96.0); PLATELET COUNT, AUTOMATED 148 10^3/uL (150-450); RED BLOOD COUNT 3.27 10^6/uL (4.30-6.10); WHITE BLOOD COUNT 6.5 10^3/uL (4.0-10.0)
[2018-09-13] MEDS: HEPARIN SOD (PORCINE) 5000 UNITS/ML VIAL SC SCH ×3 (05:51→21:12)
[2018-09-13 06:03] LABS: BLOOD UREA NITROGEN 21 MG/DL (7-18); CALCIUM LEVEL 8.3 MG/DL (8.8-10.2); CARBON DIOXIDE LEVEL 30 MEQ/L (21-32); CHLORIDE LEVEL 106 MEQ/L (98-107); CREATININE FOR GFR 0.73 MG/DL (0.70-1.30); GLOMERULAR FILTRATION RATE > 60.0 (>49); GLUCOSE, FASTING 86 MG/DL (70-100); SODIUM LEVEL 141 MEQ/L (136-145)
[2018-09-13] MEDS: LEVOTHYROXINE 88MCG TABLET (0.088 MG) PO SCH (08:52)
[2018-09-13] MEDS: ASPIRIN 81 MG ENTERIC TAB PO SCH (08:52)
[2018-09-13] MEDS ORDERED: FUROSEMIDE 40 MG TAB PO SCH (09:00)
[2018-09-13] MEDS ORDERED: SPIRONOLACTONE 25 MG TAB PO SCH (09:00)
--- NOTE | 2018-09-13 09:09 | HPE ---
DATE OF ADMISSION: 09/12/2018 CHIEF COMPLAINT: Chest discomfort, cough, shortness of breath,. HISTORY OF PRESENT ILLNESS: The patient is a 63-year-old male with significant past medical history of stage IV lung cancer diagnosed in 2007, status post chemotherapy and radiation, a complicating superior vena cava (SVC) syndrome, follows with Dr. Gordon, recurrent pleural effusion, had therapeutic thoracocentesis multiple times. He also has atrial fibrillation, sick sinus syndrome, status post pacemaker, obstructive sleep apnea on bilevel positive airway pressure (BiPAP), chronic obstructive pulmonary disease, hypothyroidism. He presents to the emergency room with what he states that he felt his pleural effusion is recurring again. He states he feels some pressure over the lower back of his lungs. He has been coughing up some sputum production which is unusual for him. He cannot recall the color of the sputum. He also says he felt short of breath. The patient is saturating at 96% in room air. His pleural effusion is unchanged from before. He apparently had an outpatient appointment to have a PleurX pigtail catheter placed; however, the patient states he is nervous that he will develop and become progressively short of breath over the weekend, so thus he came in to prevent this from recurring. He states he feels like he gets these symptoms of lower back pain and when his pleural effusion is about to recollect with impending shortness of breath. He does not appear toxic. He denies any chest pain, denies any palpitations. PAST MEDICAL HISTORY: See HPI. PAST SURGICAL HISTORY: He had chest tube placed, pacemaker placed, renal stents, pleurodesis talc. He had chemotherapy port just recently removed, partial colectomy for a polyp. ALLERGIES: NIACIN. SOCIAL HISTORY: He is a former smoker, former alcohol abuse. HOME MEDICATIONS: Include; - aspirin - Lasix - Mucinex - Synthroid - spironolactone FAMILY HISTORY: Noncontributory. REVIEW OF SYSTEMS: A 12-point review of systems was completed, all of which were negative except those listed in the HPI. ADMISSION VITAL SIGNS: Temperature of 98.1, pulse of 79, respirations 16, blood pressure 127/62, saturating at 97% on room air. PHYSICAL EXAM: GENERAL: He is well nourished, in no apparent distress. Head is normocephalic, atraumatic. Eyes: Extraocular movements are intact. Pupils equal, round, reactive to light. Neck is supple. No JVP. Lungs: There are diminished breath sounds at the right and left lung base up to the middle of the lobe on the left. Cardiovascular: Paced rhythm. Normal S1, S2. No murmurs, gallops, or rubs. Abdomen is soft, nontender, nondistended. Positive bowel sounds. No rebound, no guarding. Extremities: No pitting edema or calf tenderness. Skin is intact. No rashes, lesions, or breakdown. Neurological exam: Alert and oriented (A and O) times three. No focal deficits. LABS AND IMAGING DONE IN THE EMERGENCY ROOM: White count of 5, hemoglobin and hematocrit 10/32, platelet count of 163. Coagulation studies within normal limits. Chemistry shows a BUN/creatinine of 24/0.79. The rest of his labs are unremarkable. Imaging: CTA of the chest shows no evidence of pulmonary embolus (PE), consolidation of much of the right lung, similar to previous exams with air bronchograms, moderate left pleural effusion, similar to previous exam as well. Chest CT shows moderate left pleural effusion again identified and appears slightly increased when compared to 09/09/2018. New subtle areas of nodular infiltrates, atelectasis involving the right lower lobe when compared to the prior exam. Chest x-ray shows no significant change from prior exam. Continued evidence of small to moderate left pleural effusion. ASSESSMENT AND PLAN: Recurrent left pleural effusion, likely paramalignant, possible community-acquired pneumonia, higher consolidation in the right lower lobe is persistent with air bronchogram. Will treat with Levaquin. Can be transitioned to oral medication on discharge. Patient is saturating well on room air. Will continue his Lasix and spironolactone as outpatient. Will consult Dr. Kwon for possible PleurX pigtail catheter in the morning. Oxygen as needed. DuoNebs as needed. Obstructive sleep apnea. Continue bilevel positive airway pressure (BiPAP). Atrial fibrillation, status post sick sinus syndrome. Stable. Chronic obstructive pulmonary disease. Stable. DuoNebs as needed. Hypothyroidism. Continue Synthroid. Check thyroid stimulating hormone (TSH). Supportive: Deep venous thrombosis (DVT) prophylaxis. Heparin subcu. Gastrointestinal (GI) prophylaxis. Not indicated. MTDD
[2018-09-13] MEDS ORDERED: MIDAZOLAM INJ 2 MG/2 ML VIAL (J2250) As Ordered ONE ×2 (09:48→09:49)
[2018-09-13] MEDS ORDERED: LIDOCAINE 1% MDV 20ML VIAL As Ordered ONE (09:48)
[2018-09-13] MEDS ORDERED: FLUMAZENIL 0.5 MG/5 ML VIAL As Ordered ONE (09:49)
[2018-09-13] MEDS ORDERED: LIDOCAINE 1% MDV 20ML VIAL SC ONE (10:00)
[2018-09-13] MEDS ORDERED: MIDAZOLAM INJ 2 MG/2 ML VIAL (J2250) IV ONE (10:00)
[2018-09-13] MEDS ORDERED: D5W/0.9% SODIUM CHLORIDE 1,000 ML IV SCH (10:43)
[2018-09-13] MEDS ORDERED: NORCO, ANEXSIA 5/325MG TABLET (HYDROcodone/ACETAMINOPHEN) PO PRN (10:45)
[2018-09-13] MEDS ORDERED: ACETAMINOPHEN TAB 650MG DOSE (2X325MG) PO PRN (10:45)
[2018-09-13] MEDS ORDERED: BISACODYL 10 MG SUPP PR PRN (10:45)
[2018-09-13] MEDS ORDERED: LEVALBUTEROL 1.25 MG/0.5 ML CONCENTRATE NEB NEB PRN (10:45)
--- NOTE | 2018-09-13 11:00 | REP ---
Clinical: Status post chest tube and thoracentesis. Comparison: 09/12/2018. Findings: Left-sided chest tube in satisfactory position. Previous moderate left pleural effusion appears to have cleared. No obvious pneumothorax. The right hemithorax demonstrates stable pleuroparenchymal changes. Cardiac silhouette is unchanged. Skeletal structures stable. Impression: Left effusion has been cleared. No pneumothorax. Chronic stable changes. No new acute process. Electronically Signed by Trell Gibson MD 09/13/2018 10:52 A
--- NOTE | 2018-09-13 11:13 | ECGEPIP ---
Stationary ECG Study [facility] - ED Test Date: 2018-09-12 Pat Name: MILI BENITEZ Department: Room: [place] [address] Gender: M [employer] Fe[employer]: ada : [id number] Requested By: Emir Jordan Order Number: [id number] Reading MD: Kayla Beltran Measurements Intervals [place] Rate: 69 P: 227 [place]: 273 QRS: -7 QRSD: 156 T: 31 QT: 456 QTc: 491 Interpretive Statements ELECTRONIC ATRIAL PACEMAKER RIGHT BUNDLE BRANCH BLOCK POSSIBLE ANTERIOR MYOCARDIAL INFARCTION, OF INDETERMINATE AGE LOW VOLTAGE CW 08/22/18 NO SIGNIFICANT CHANGE Electronically Signed On 09-13-2018 11:12:59 EDT by Kayla Beltran
[2018-09-13] MEDS: PERCOCET 5MG/325MG TAB PO PRN ×2 (11:54→18:18)
[2018-09-13] MEDS: KETOROLAC 30 MG/ML VIAL (J1885) IV SCH ×3 (11:54→23:03)
[2018-09-13 11:58] LABS: APPEARANCE, BODY FLUID TURBID (CLEAR); PLEURAL FL COLOR PINK (COLORLESS); SOURCE, BODY FLUID PLEURAL
[2018-09-13 12:02] LABS: PH BODY FLUID 7.524 UNITS (NOT ESTABLISHED); SOURCE, BODY FLUID pH PLEURAL
[2018-09-13 12:12] LABS: AMYLASE, BODY FLUID 13 U/L (NOT ESTABLISHED); CHOLESTEROL, BODY FLUID 70 MG/DL (NOT ESTABLISHED); LDH, BODY FLUID 174 U/L (NOT ESTABLISHED); SOURCE, BODY FLUID ALBUMIN PLEURAL; SOURCE, BODY FLUID AMYLASE PLEURAL; SOURCE, BODY FLUID CHOL PLEURAL; SOURCE, BODY FLUID GLUCOSE PLEURAL; SOURCE, BODY FLUID LDH PLEURAL; SOURCE, BODY FLUID TOT PROTEIN PLEURAL; SOURCE, BODY FLUID TRIG PLEURAL; TOTAL PROTEIN, BODY FLUID 3.9 G/DL (NOT ESTABLISHED); TRIGLYCERIDE, BODY FLUID 76 MG/DL (NOT ESTABLISHED)
--- NOTE | 2018-09-13 14:05 | IPNPDOC ---
Text Note Date of Service The patient was seen on 09/13/18. NOTE SUBJECTIVE: Does not have any complaints this morning. Awaiting the placement of PleurX cath. PHYSICAL EXAM: VITALS: As below GENERAL: He is well nourished, in no apparent distress. Head is normocephalic, atraumatic. Eyes: Extraocular movements are intact. Pupils equal, round, reactive to light. Neck is supple. No JVP. Lungs: There are diminished breath sounds at the right and left lung base up to the middle of the lobe on the left. Cardiovascular: Paced rhythm. Normal S1, S2. No murmurs, gallops, or rubs. Abdomen is soft, nontender, nondistended. Positive bowel sounds. No rebound, no guarding. Extremities: No pitting edema or calf tenderness. Skin is intact. No rashes, lesions, or breakdown. Neurological exam: Alert and oriented (A and O) times three. No focal deficits. Labs and Radiology: reviewed Assessment and plan: The patient is a 63-year-old male with significant past medical history of stage IV lung cancer diagnosed in 2007, status post chemothe rapy and radiation, a complicating superior vena cava (SVC) syndrome, right pleural effusion had talc pleurodesis done on the right several years ago, Atrial fibrillation, sick sinus syndrome s/p pacemaker, KRISTAN on BIPAP, COPD, Hypothyroidism, New recurrent left sided pleural effusions since Fall of 2017 which he correlates to a fall while he was moving logs. He had 4 therapeutic thoracocentesis since last year. He presented to the emergency room with what he states that he felt his pleural effusion is recurring again. CXR did show that the left pleural effusion was back. . He apparently had an outpatient appointment to have a PleurX pigtail catheter placed; however, the patient states he was nervous that he will become progressively short of breath over the weekend, so thus he came in to prevent this from recurring. The patient was discussed with Dr Kwon and he has agreed to place the pleurX cath now that he is already in the hospital . [facility] for the placement of pleurx catheter. Recurrent Left sided pleural efussion NON malignant etiology unknown Possibility of radiation related pleuritis has been entertained. PleurX cath today. H/O Small cell lung cancer treated in 2007 with complications of SVC syndrome, recurrent right pleural effusion in 2012 s/p chemotherapy, radiation and right talc pleurodesis. No recurrence. KRISTAN cotniue own BIPAP COPD no issues at present continue home meds. Hypothyroid continue synthroid H/O Tachy- erickson syndrome/ sinus arrest/ paroxysmal atrial fibrillation and flutter Has dual chamber pacemaker in place. DVT prophylaxis : has been ordered. VS,Fishbone, I+O VS, Fishbone, I+O Laboratory Tests 09/12/18 20:54 Red Blood Count 3.60 L, Mean Corpuscular Volume 91.4, Mean Corpuscular Hemoglobin 29.4, Mean Corpuscular Hemoglobin Concent 32.2, Red Cell Distribution Width 15.3 H, Neutrophils (%) (Auto) 75.8 H, Lymphocytes (%) (Auto) 12.0 L, Monocytes (%) (Auto) 8.9 H, Eosinophils (%) (Auto) 2.1, Basophils (%) (Auto) 1.0, Neutrophils # (Auto) 4.4, Lymphocytes # (Auto) 0.7 L, Monocytes # (Auto) 0.5, Eosinophils # (Auto) 0.1, Basophils # (Auto) 0.1 09/13/18 05:20 Red Blood Count 3.27 L, Mean Corpuscular Volume 90.8, Mean Corpuscular Hemoglobin 29.4, Mean Corpuscular Hemoglobin Concent 32.3, Red Cell Distribution Width 15.2 H, Calcium Level 8.3 L Vital Signs Date Time Temp Pulse Resp B/P (MAP) Pulse Ox O2 Delivery O2 Flow Rate FiO2 09/13/18 12:49 97.7 70 18 108/55 (72) 100 2.0 09/12/18 23:16 Room Air I&O- Last 24 Hours up to 6 AM 09/13/18 06:00 Intake Total 0 ml Output Total 0 ml Balance 0 ml ADRIAN THOMAS MD Sep 13, 2018 14:05
[2018-09-13] MEDS: LEVALBUTEROL 1.25 MG/0.5 ML CONCENTRATE NEB NEB SCH ×2 (14:23→19:59)
--- NOTE | 2018-09-13 14:47 | CR ---
DATE OF CONSULTATION: 09/13/2018 Patient seen at the request of the hospitalist service in the emergency room for recurrent left pleural effusion with shortness of breath. 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 He underwent chemotherapy and radiation to the right side. This past February, he lost his balance while doing some outside with his tractor, trying to erect deer stand. He states that he was unconscious for 2 hours and was then finally brought to the emergency room. He was found to have a pleural effusion, which at that point was drained by radiology. Since February, he has had four other taps of the same effusion on the left side. They have been consistently mildly exudative, turbid, and the last two have been predominantly inflammatory with 66% PMNs, and white counts that have ranged between 7000 and 1000. He complains of increasing shortness of breath every time his pleural effusions recur. He has had a cough with some white sputum production. There has been no fever, chills, or sweats. He experiences vague chest discomfort but no sharp pleuritic pain. He has a cough with clear sputum production which he puts down to a postnasal drip. Yesterday, he felt as if he was starting to fill up, becoming more short of breath. 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 Today, however, he does feel better having coughed up some sputum. He does still have shortness of breath. His small lung cancer was diagnosed in 2007. He has had no signs of recurrence. All the pleural effusions that have been drained have been negative for malignancy. PAST MEDICAL HISTORY: Chronic obstructive pulmonary disease (COPD). Hypothyroidism. Obstructive sleep apnea, on continuous positive airway pressure (CPAP). Renal stones. Atrial fibrillation with tachybrady syndrome, having required a pacemaker. Stage IV small cell lung cancer, 2007. PAST SURGERIES: Talc pleurodesis in 2011 with a port placement and port removal. The above pacemaker. Renal stents. Partial colon resection in the remote past. MEDICATIONS AT HOME: - Ventolin every 4 hours two puffs as needed wheezing - albuterol sulfate nebulizer 2.5 mg every 4 hours - aspirin 81 mg daily - Zyrtec 10 mg daily - Lasix 40 mg daily - Mucinex 600 mg twice a day - ibuprofen 600 mg every 6 hours as needed pain - Synthroid 88 mcg daily - spironolactone 25 mg daily HABITS: Former smoker, having stopped in 2007 of one pack per day for approximately 20 years. He occasionally consumes alcohol and has been exposed to asbestos. 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 FAMILY HISTORY: Father due to diabetes. REVIEW OF SYSTEMS: CONSTITUTIONAL: Without fever, chills, sweats, or night sweats. EYES: Without diplopia, amaurosis fugax, or prior jaundice. NOSE: Without epistaxis. MOUTH: Has his own teeth. CARDIOVASCULAR (CV): History of atrial fibrillation, but without angina, intermittent claudication, peripheral edema, or prior myocardial infarction. RESPIRATORY: See history of present illness (HPI). CARDIAC: See HPI. No intermittent claudication. GASTROINTESTINAL (GI): Has constipation without nausea, vomiting, diarrhea, abdominal pain, or dysphasia. GENITOURINARY (): Without dysuria or hematuria, but has history of renal stones. NEURO: Without paresthesias, paralyses, or prior seizures. PSYCHIATRIC: Without pathological anxieties, depressions, or psychoses. HEMATOLOGIC: Without prolonged bleeding times. ENDOCRINE: With hypothyroidism. Without diabetes. PHYSICAL EXAMINATION: Well-developed, well-nourished white male in slight distress with shortness of breath at rest. Vital signs: Temperature is 97.5, pulse of 70 with a regular rate and rhythm, a respiratory rate of 16 without the use of accessory muscles, who is 94% saturated on room air, and his blood pressure is 127/66. EYES: Pupils equal, round, and reactive to light. Extraocular motion intact. Sclerae nonicteric. NOSE: Without deformity. MOUTH: Shows his mucous membranes to be pink and moist. Lips and commissures without lesions. Teeth are in place and in good repair. HEAD: Is normocephalic. NECK: Is supple. There is no jugular venous distention. No subcutaneous emphysema. Trachea is midline. There is no thyromegaly. No lymphadenopathy. He has 2+ carotid upstrokes without bruits. LUNGS: Show decreased breath sounds in the left lower hemithorax with a dull percussion note in the left lower hemithorax. Right side shows transmitted breath sounds on bronchophony in the right upper lobe. There are occasional rhonchi, which clear with coughing. CARDIAC: Without murmurs, clicks, gallops, rubs. I cannot feel his point of maximum impulse (PMI). S1 and S2 are normal. ABDOMEN: Is soft, nontender. Bowel sounds are positive. There is no hepatomegaly. No costovertebral angle (CVA) tenderness. EXTREMITIES: Show no pretibial edema. No calf tenderness. No differential swelling of the upper extremities. SKIN: Is warm, dry, and perfused without cyanosis or mottling including that of the nailbeds and knees. NEUROLOGIC: Shows II-XII intact along with gross motor and gross sensation intact. Gait is also intact. PSYCHIATRIC: Shows him to be awake, oriented times three with appropriate mood and affect and conversational. His white count today is 6.5 with a hemoglobin and hematocrit of 9.6 and 29.7. Platelet count is 148. Differential yesterday showed 75% neutrophils, 12% lymphocytes, 8% monocytes. There were no immature forms, no toxic granulations. Electrolytes this morning are normal with a BUN/creatinine of 21 and 0.73, a glucose of 86, and a calcium 8.3. Liver functions are normal with AST and ALT of 19 and 15, respectively. Albumin is 3.0 with a corresponding calcium of above 8.3. Chest x-ray done yesterday is fairly unimpressive with some blunting of the left costophrenic angle. The right upper lobe is completely consolidated from radiation effects. CT angio of his chest did not show a pulmonary embolism. He has a mild pleural effusion which is essentially unchanged from his chest CT of 08/23/2018. The right upper lobe again shows consolidation and destruction with air bronchograms secondary to radiation. There is left lower lobe compression. There is obligate volume loss on the right side. There is no pericardial effusion. I do not see mediastinal lymphadenopathy. There is a shift to the right of the mediastinum. There are no liver lesions. Left and right adrenals have a normal configuration. IMPRESSION: 1. Recurrent pleural effusion, now times four. 2. Shortness of breath. 3. Possible mucous plugging. 4. Status post small cell lung cancer, status post radiation and chemotherapy with destruction of right upper lobe from radiation. 5. Hypothyroidism. 6. Chronic obstructive pulmonary disease (COPD). 7. Sleep apnea. 8. Sick sinus syndrome, status post pacemaker placement. PLAN AND DISCUSSION: This is now what would be 5th drainage. I am going to place a PleurX catheter. We will, of course, send the fluid off for the requisite chemistries, hematology, cytologies, and bacteriology. It is my hope that over the next couple of months the catheter will spontaneously stop draining and we will be able to remove it.
[2018-09-13] MEDS: DOCUSATE SODIUM 100 MG CAP PO SCH ×2 (14:49→20:47)
[2018-09-14] MEDS: PERCOCET 5MG/325MG TAB PO PRN ×2 (00:22→08:03)
[2018-09-14] MEDS: LEVALBUTEROL 1.25 MG/0.5 ML CONCENTRATE NEB NEB SCH ×2 (02:00→07:29)
[2018-09-14 04:00] VITALS: BP 112/65
[2018-09-14] MEDS: IPRATROPIUM 0.5MG/ALBUTEROL 2.5MG INH SOL UD 3ML (DUONEB)(J7620) NEB SCH ×5 (04:00→13:22)
[2018-09-14] MEDS: HEPARIN SOD (PORCINE) 5000 UNITS/ML VIAL SC SCH ×2 (05:17→14:00)
[2018-09-14] MEDS: KETOROLAC 30 MG/ML VIAL (J1885) IV SCH ×2 (05:17→11:29)
[2018-09-14 05:51] LABS: HEMATOCRIT 31.1 % (42.0-52.0); HEMOGLOBIN 9.7 g/dl (13.5-17.5); MEAN CORPUSCULAR HEMOGLOBIN 29.1 pg (27.0-33.0); MEAN CORPUSCULAR HGB CONC 31.2 g/dl (32.0-36.5); MEAN CORPUSCULAR VOLUME 93.4 fl (80.0-96.0); PLATELET COUNT, AUTOMATED 151 10^3/uL (150-450); RED BLOOD COUNT 3.33 10^6/uL (4.30-6.10); WHITE BLOOD COUNT 4.3 10^3/uL (4.0-10.0)
[2018-09-14 06:04] LABS: BLOOD UREA NITROGEN 25 MG/DL (7-18); CALCIUM LEVEL 7.9 MG/DL (8.8-10.2); CARBON DIOXIDE LEVEL 28 MEQ/L (21-32); CHLORIDE LEVEL 109 MEQ/L (98-107); CREATININE FOR GFR 0.98 MG/DL (0.70-1.30); GLOMERULAR FILTRATION RATE > 60.0 (>49); GLUCOSE, FASTING 88 MG/DL (70-100); POTASSIUM SERUM 4.1 MEQ/L (3.5-5.1); SODIUM LEVEL 143 MEQ/L (136-145)
[2018-09-14 08:00] VITALS: BP 80/58
[2018-09-14] MEDS: DOCUSATE SODIUM 100 MG CAP PO SCH (08:02)
[2018-09-14] MEDS: LEVOTHYROXINE 88MCG TABLET (0.088 MG) PO SCH (08:02)
[2018-09-14] MEDS: ASPIRIN 81 MG ENTERIC TAB PO SCH (08:02)
[2018-09-14] MEDS: guaiFENesin ER 600 MG TAB PO SCH (08:02)
--- NOTE | 2018-09-14 08:43 | REP ---
Chest x-ray: Two views. History: Pleural effusion. Comparison study: September 13, 2018. Findings: There is new increased density in the previously aerated right lower lobe pulmonary parenchyma consistent with atelectasis and/or pleural effusion. Chronic volume loss and fibrosis is seen in the perihilar and upper lobe regions on the right. No new infiltrate is seen on the left. There is a Pleurx catheter visible on the left. There are clips in the upper abdomen. A bipolar pacemaker is seen in the right heart via the left side. Impression: New consolidation and/or collapse right lower lobe. Electronically Signed by Justus Chambers MD 09/14/2018 09:32 A
[2018-09-14] MEDS ORDERED: MOM 30ML SUSPENSION UDC PO SCH (09:00)
[2018-09-14] MEDS ORDERED: FUROSEMIDE 40 MG TAB PO SCH (09:00)
[2018-09-14] MEDS ORDERED: SPIRONOLACTONE 25 MG TAB PO SCH (09:00)
[2018-09-14] MEDS ORDERED: PANTOPRAZOLE 40MG TAB (PROTONIX) PO SCH (09:00)
[2018-09-14 09:17] VITALS: BP 102/58
[2018-09-14 12:00] VITALS: BP 100/54
--- NOTE | 2018-09-15 07:51 | IPN ---
DATE: 09/14/2018 Mr. Palma is breathing much better this morning. He has some residual pain at the PleurX insertion site. He is going to be taught how to drain himself today and I would expect discharge later this afternoon. His vital signs show a maximum temperature (t-max) of 97.8 with a heart rate that ranges between 70 and 67. Respiratory rate is 18 to 20 without the use of accessory muscles, who is 99% saturated on 2 liters nasal cannula, and his blood pressure is ranging between 117/63 to 112/65. His intake and output over the past 24 hours has been recorded as 1750 in and 1625 out for a positivity of 175 mL. He has had 1150 mL drained from his chest yesterday. His weight today is 96.1 kg compared to 95.8 kg yesterday. PHYSICAL EXAMINATION: LUNGS: His left lung is clear without wheezes, rhonchi or rales. Percussion note is full to the diaphragm. Right lung shows bronchophony and transmitted breath sounds on the upper extent and decreased breath sounds in the lower extent of the right hemithorax. Percussion note is full to the diaphragm on the right side. CARDIAC EXAM: Without murmurs, clicks, gallops or rubs. I cannot feel his point of maximum impulse (PMI). S1, S2 are normal. ABDOMEN: Soft, nontender. Bowel sounds positive. There is no hepatomegaly. No costovertebral angle tenderness. EXTREMITIES: Show no pretibial edema. No calf tenderness. No differential swelling of the upper extremities. SKIN: Warm, dry and perfused without cyanosis or mottling, including that of the nail beds and knees. NECK: Supple. There is no jugular venous distention. No subcutaneous emphysema. Trachea is midline. MOUTH: Shows his mucous membranes to be pink and moist. Lips and commissures without lesions. There is no thrush. EYES: Show his pupils to be equal and reactive. Extraocular motion intact. Sclerae anicteric. NEUROLOGIC: Shows II through XII intact with gross motor and gross sensation intact. Gait is not tested. PSYCHIATRIC: Shows him to be awake and alert, oriented times three with appropriate mood and affect and conversational. His white count today is 4.3 with a hemoglobin and hematocrit of 9.7 and 31.1, respectively and a platelet count of 151. Electrolytes are essentially normal with a BUN and creatinine of 25 and 0.90, glucose of 88 and calcium of 7.9. His chest x-ray shows the left lung fully expanded to the chest wall. Costophrenic angles are sharp. The PleurX catheter is in good position. He does seem to have a new opacity on the right side, consistent with fluid, which has changed from the preprocedure chest x-ray. He may be starting to accumulate fluid in the right hemithorax. IMPRESSION: 1. Recurrent pleural effusion, left side, relieved with PleurX catheter. 2. Shortness of breath, relieved with the PleurX catheter. 3. Possible mucus plugging. 4. Small cell lung cancer, status post radiation and chemotherapy. 5. Hypothyroidism. 6. Chronic obstructive pulmonary disease (COPD). 7. Sleep apnea. 8. Sick sinus syndrome, status post pacemaker placement. 9. New right pleural effusion. PLAN/DISCUSSION: We will carefully observe the right pleural effusion over the next 2 weeks or so to see if that will go away. I will see him in the office in 2 weeks. If it does not go away, we will have to readdress that. It is my hope that his left pleural effusion will eventually resolve itself and I can remove the PleurX catheter in a couple of months. His blood pressure has been fairly satisfactory; however, last night it was on the low side in the high 90s systolically. I do note that his diuretic, i.e spironolactone was discontinued last night, and I recommend that we restart him on that.
--- NOTE | 2018-09-15 11:25 | RO ---
DATE OF PROCEDURE: 09/13/2018 PREPROCEDURE DIAGNOSIS: Recurrent left pleural effusion. POSTPROCEDURE DIAGNOSIS: Recurrent left pleural effusion. PROCEDURE: Insertion of a PleurX catheter. SURGEON: Juan M Kwon MD [employer] WORKER: ANESTHESIA: FINDINGS: The catheter eventually drained 1150 mL of turbid fluid. DESCRIPTION OF PROCEDURE: Under satisfactory moderate sedation with 4 mg of Versed, the patient was prepped and draped in the usual sterile fashion. Entry and exit sites were marked and measured. The entry site was infiltrated with 1% lidocaine. An explorer needle was placed, and pleural fluid was withdrawn. A wire was then placed. A tunnel tract was then infiltrated with 1% lidocaine. Incision was made at the exit site and the entry site. A tunnel was created, and the PleurX catheter pulled through the tunnel. The wire tract was then dilated, and a peel-away introducer placed. The PleurX catheter was placed without difficulty. The peel-away introducer was removed and the catheter positioned. The entry wound was closed with running 4-0 Monocryl subcuticular suture, and the catheter was secured to the abdominal wall with a 2-0 silk suture. 1150 mL of fluid was drained. The patient tolerated the procedure well, and a chest x-ray is pending.
== END 2018-09-14 15:32 | disposition home or self-care (01) | DRG 188 ==
LOC: M ED 20:16 → M ED INP 23:17 → M PCU 09-13 00:25
PROVIDERS: ADMIT Internal Medicine; ATTEND Internal Medicine Nephrology
PROC: 0W9B00Z Drainage of Left Pleural Cavity with Drainage Device, Open Approach (ICD-10-PCS; principal; 2018-09-13)
DX: J90 Pleural effusion, not elsewhere classified (principal); G47.33 Obstructive sleep apnea (adult) (pediatric); J44.9 Chronic obstructive pulmonary disease, unspecified; E03.9 Hypothyroidism, unspecified; I48.0 Paroxysmal atrial fibrillation; Z85.118 Personal history of other malignant neoplasm of bronchus and lung; Z92.21 Personal history of antineoplastic chemotherapy; Z92.3 Personal history of irradiation; Z95.0 Presence of cardiac pacemaker; Z87.891 Personal history of nicotine dependence; Z86.010 Personal history of colon polyps; Z88.8 Allergy status to other drugs, medicaments and biological substances; Z79.82 Long term (current) use of aspirin; Z79.899 Other long term (current) drug therapy; Z90.49 Acquired absence of other specified parts of digestive tract

== ENCOUNTER → 2018-11-13 | Outpatient (CLI) | payer OTHER ==
[~2018-11-13] MED LIST changes: +HYDR-3715 PO; -NORCOTAB PO; -PERCOCET PO; -VICO5TAB16 PO; +VICO5TAB17 PO; +VITA100018 PO; -VITA100072 PO
--- NOTE | 2018-11-13 09:12 | REP ---
CHEST, TWO VIEWS: Two views of the chest are performed and compared with a prior study of 10/01/2018. There is increased parenchymal opacity on the right compared to the prior study. There is again consolidative opacity in the right apex with air bronchograms. There is shift of heart and mediastinal structures to the right. The left lung is unchanged in appearance with no new infiltrate. Small amount of left pleural fluid or thickening is again noted unchanged. There is a left duel lead pacemaker. IMPRESSION: Increased parenchymal opacity on the right compared to prior study of 10/01/2018. This may represent atelectasis/infiltrate and/or pleural fluid. Electronically Signed by Carlos Monzon MD 11/13/2018 04:12 P
== END ==
LOC: M LRY 08:16
PROVIDERS: ATTEND Family Medicine
DX: J44.1 Chronic obstructive pulmonary disease with (acute) exacerbation (principal); Z95.0 Presence of cardiac pacemaker

== ENCOUNTER → 2018-12-07 | Outpatient (CLI) | payer OTHER ==
--- NOTE | 2018-12-07 09:51 | REP ---
Clinical: Pleural effusion. Technique: PA and lateral. Comparison: 11/13/2018. Findings: Mass / consolidation involving the right upper lung zone with air bronchograms as well as small right pleural effusion. Chest tube at the left base is stable in position and subtle left basilar pleural reaction with blunting of the costophrenic angle is again noted. No obvious left-sided pneumothorax, consolidation / opacity or significant effusion identified. Cardiac silhouette remains stable. Skeletal structures are stable. Impression: 1. Right-sided pleuroparenchymal changes. 2. Chest tube at the left base remain stable without pneumothorax or significant effusion identified. Electronically Signed by Trell Gibson MD 12/07/2018 09:43 A
== END ==
LOC: M SMT 09:08
PROVIDERS: ATTEND Thoracic Surgery (Cardiothoracic Vascular Surgery)
DX: Z97.8 Presence of other specified devices (principal); R91.8 Other nonspecific abnormal finding of lung field

== ENCOUNTER 2018-12-29 08:18 | Day surgery (SDC) | payer OTHER ==
[~2018-12-29] VITALS: Ht 180.3 cm; Wt 89.5 kg
[~2018-12-29 08:18] MED LIST changes: +CETI10CA2 PO; +CYAN500T8 PO; +MUCI600T31 PO; -VITA500T3 PO
[2018-12-29] MEDS ORDERED: NS 1,000 ML IV ONE (09:00)
[2018-12-29] MEDS ORDERED: PROPOFOL 200 MG/20 ML VIAL As Ordered ONE ×2 (09:46→10:00)
--- NOTE | 2018-12-29 10:12 | ROOR ---
Patient Name: Cristofer Palma Procedure Date: 12/29/2018 9:41 AM Date of : 1955 Age: 63 Room: [facility] Gender: Male Note Status: Finalized Procedure: Colonoscopy Indications: High risk colon cancer surveillance: Personal history of colonic polyps, Last colonoscopy: October 2015 Providers: Fernie THOMAS MD Referring MD: Carlos DOSS MD Requesting Provider: Medicines: Monitored Anesthesia Care Complications: No immediate complications. Procedure: Pre-Anesthesia Assessment: - The heart rate, respiratory rate, oxygen saturations, blood pressure, adequacy of pulmonary ventilation, and response to care were monitored throughout the procedure. The Colonoscope was introduced through the anus and advanced to the terminal ileum, with identification of the appendiceal orifice and IC valve. The colonoscopy was performed without difficulty. Findings: The perianal and digital rectal examinations were normal. There was evidence of a prior functional end-to-end colo-colonic anastomosis at the hepatic flexure. This was patent and was characterized by healthy appearing mucosa. The anastomosis was traversed. The colon was moderately redundant. Advancing the scope required applying abdominal pressure. The entire examined colon appeared normal on direct and retroflexion views. Impression: - Patent functional end-to-end colo-colonic anastomosis ~ hepatic flexure. This was traversed into the cecum/terminal ileum - Redundant colon. - Small internal Hemorrhoids. - The colon is otherwise normal on direct and retroflexion views. - No specimens collected. Recommendation: - Repeat colonoscopy in 5 years for surveillance. Fernie Thomas MD Fernie THOMAS MD 12/29/2018 10:12:24 AM Electronically signed by Fernie THOMAS MD Number of Addenda: 0 Note Initiated On: 12/29/2018 9:41 AM Estimated Blood Loss: Estimated blood loss: none.
[2018-12-29 10:47] VITALS: BP 124/78
== END 2018-12-29 10:49 | disposition home or self-care (01) ==
LOC: M OPP 08:18
PROVIDERS: ATTEND Internal Medicine Gastroenterology
DX: Z86.010 Personal history of colon polyps (principal); Q43.8 Other specified congenital malformations of intestine; Z98.0 Intestinal bypass and anastomosis status; Z79.82 Long term (current) use of aspirin; Z79.899 Other long term (current) drug therapy; Z87.891 Personal history of nicotine dependence; Z95.0 Presence of cardiac pacemaker

== ENCOUNTER → 2019-02-11 | Outpatient (REF) | payer OTHER ==
[2019-02-11 20:45] LABS: BLOOD UREA NITROGEN 23 MG/DL (7-18); CALCIUM LEVEL 8.4 MG/DL (8.8-10.2); CARBON DIOXIDE LEVEL 34 MEQ/L (21-32); CHLORIDE LEVEL 106 MEQ/L (98-107); CREATININE FOR GFR 0.83 MG/DL (0.70-1.30); GLOMERULAR FILTRATION RATE > 60.0 (>49); GLUCOSE, FASTING 79 MG/DL (70-100); POTASSIUM SERUM 4.1 MEQ/L (3.5-5.1); SODIUM LEVEL 141 MEQ/L (136-145)
== END ==
LOC: M SFHCLERA 15:07
PROVIDERS: ATTEND Family Medicine
DX: E87.6 Hypokalemia (principal)

== ENCOUNTER 2019-02-24 17:38 | Inpatient (IN) | payer OTHER ==
[~2019-02-24] VITALS: Ht 177.8 cm; Wt 93.5 kg
[2019-02-24 18:27] LABS: BASO % 0.6 % (0.0-1.0); EOS % 0.7 % (0.0-3.0); HEMATOCRIT 32.9 % (42.0-52.0); HEMOGLOBIN 10.7 g/dl (13.5-17.5); LYMPH # 0.3 10^3/uL (1.5-5.0); LYMPH % 6.3 % (24.0-44.0); MEAN CORPUSCULAR HEMOGLOBIN 29.9 pg (27.0-33.0); MEAN CORPUSCULAR HGB CONC 32.5 g/dl (32.0-36.5); MEAN CORPUSCULAR VOLUME 91.9 fl (80.0-96.0); MONO # 0.7 10^3/uL (0.0-0.8); MONO % 12.2 % (0.0-5.0); NEUTROPHILS # 4.3 10^3/uL (1.5-8.5); PLATELET COUNT, AUTOMATED 120 10^3/uL (150-450); RED BLOOD COUNT 3.58 10^6/uL (4.30-6.10); WHITE BLOOD COUNT 5.4 10^3/uL (4.0-10.0)
[2019-02-24 19:02] LABS: ALBUMIN 2.8 GM/DL (3.2-5.2); ALT/SGPT 13 U/L (12-78); BILIRUBIN,DIRECT 0.3 MG/DL (0.0-0.2); BILIRUBIN,TOTAL 0.7 MG/DL (0.2-1.0); BLOOD UREA NITROGEN 18 MG/DL (7-18); CALCIUM LEVEL 8.1 MG/DL (8.8-10.2); CARBON DIOXIDE LEVEL 29 MEQ/L (21-32); CHLORIDE LEVEL 104 MEQ/L (98-107); CPK CREATINE PHOSPHOKINASE 118 U/L (39-308); GLOMERULAR FILTRATION RATE > 60.0 (>49); GLUCOSE, FASTING 88 MG/DL (70-100); MB/CK RELATIVE INDEX 0.85 (< OR =4); POTASSIUM SERUM 3.9 MEQ/L (3.5-5.1); SODIUM LEVEL 140 MEQ/L (136-145); THYROID STIMULATING HORMONE 0.073 uIU/ML (0.358-3.740); TOTAL PROTEIN 6.2 GM/DL (6.4-8.2); TROPONIN I < 0.02 NG/ML (< 0.10)
[2019-02-24] MEDS ORDERED: ACETAMINOPHEN 325 MG TAB As Ordered ONE (19:19)
[2019-02-24] MEDS ORDERED: ACETAMINOPHEN TAB 650MG DOSE (2X325MG) PO ONE (19:30)
[2019-02-24] MEDS ORDERED: LevoFLOXacin IV 750 MG in IV 1 EA IV ONE (20:15)
[2019-02-24] MEDS ORDERED: CETI10TA4 PO (21:05)
[2019-02-24] MEDS ORDERED: ASPI-161 PO (21:05)
[2019-02-24] MEDS ORDERED: ACETAMINOPHEN TAB 650MG DOSE (2X325MG) PO PRN (21:30)
[2019-02-24] MEDS ORDERED: VANCOMYCIN HCL 1,000 MG in IV FLUID PLACE HOLDER 1 EA IV SCH (21:45)
[2019-02-24] MEDS ORDERED: PIPERACILLIN/TAZOBACTAM SOD 4.5 GM in D5W MINI-BAG PLUS 50 ML IV ONE (21:45)
[2019-02-24] MEDS ORDERED: ISOVUE-370 76% 100ML VIAL (Q9967) As Ordered ONE (22:12)
[2019-02-24] MEDS ORDERED: NS 500 ML IV ONE (22:15)
--- NOTE | 2019-02-24 22:18 | HPEPDOC ---
General Date of Admission 02/24/19 Date of Service: Feb 24, 2019 Chief Complaint The patient is a 63-year-old male admitted with a reason for visit of General Illnes. Source: Patient Exam Limitations: No limitations, Other (slurred speech) Severity: Mild, Moderate History of Present Illness Pt is a 63 yo male with PMH of sick sinus syndrome with pacemaker, COPD, stage 4 small cell lung CA s/p chemo and radiation also prophylatic cranial radiation presented to [facility] ER due to fever, chills, and dyspnea that started last night. Pt follows oncologist Dr. Goodman. Pt has a left sided chest tube placed end of August 2018 who had undergone extensive work up with diagnosis and was noted to be non-malignant by oncology. He denies any chest pain, palpitation, abdominal pain or any other complaints. Pt reported that he was using his neck alot and was having neck pain but denies any trauma of the neck. It was noted that pt has a fever of 101.8F in the ER>. Home Medications Scheduled Aspirin (Aspirin EC) 81 Mg Tablet.dr, 81 MG PO DAILY, (Reported) Cetirizine HCl (Cetirizine HCl) 10 Mg Tablet, 10 MG PO DAILY, (Reported) Furosemide (Lasix) 40 Mg Tab, 40 MG PO DAILY, (Reported) Levothyroxine Sodium (Levoxyl) 88 Mcg Tab, 88 MCG PO DAILY, (Reported) Spironolactone (Spironolactone) 25 Mg Tab, 25 MG PO DAILY, (Reported) Scheduled PRN Albuterol Sulf (Albuterol Sulfate) 2.5 Mg/3 Ml Nebu, 2.5 MG NEB QID PRN for SHORTNESS OF BREATH, (Reported) Albuterol Sulfate (Ventolin Hfa) 108 Mcg/Act Aer, 2 PUFF INH Q4H PRN for SHORTNESS OF BREATH, (Reported) Guaifenesin (Mucinex) 600 Mg Tab.er.12h, 600 MG PO Q12H PRN for CONGESTION, (Reported) Ibuprofen (Ibuprofen) 200 Mg Tab, 400 MG PO Q6H PRN for PAIN, (Reported) Allergies Coded Allergies: niacin (Verified Adverse Reaction, Intermediate, FLUSHED X 1.5HOUR, 12/24/18) Past Medical History Medical History COPD Hypothyroidism Obstructive sleep apnea on CPAP Nephrolithiasis Atrial fibrillation with tachybrady syndrome, having required a pacemaker. Stage IV small cell lung cancer, 2007 Social History * Smoker: Denies A-FIB/CHADSVASC A-FIB History Current/History of A-Fib/PAF?: Yes Current PO Anticoag Therapy: No Age/Risk Factor Scoring CHADSVASC: CHADSVASC Response (Comments) Value Age Risk Factor Age < 65 years old 0 Gender Risk Factor Male 0 Hx of CHF No 0 Hx of HTN No 0 Hx of Stroke/TIA/or VTE No 0 Hx of Diabetes No 0 Hx of Vascular Disease No 0 Total 0 Review of Systems Constitutional: Reports: Chills, Fever Pulmonary: Reports: Dyspnea; Denies: Pleuritic Chest Pain Cardiovascular: Denies: Chest Pain, Palpitations Gastrointestinal: Denies: Nausea, Vomiting, Abdominal Pain Physical Examination General Exam: Positive: Alert, Cooperative, No Acute Distress ENT Exam: Positive: Atraumatic Neck Exam: Positive: Supple Chest Exam: Positive: Normal air movement, Diminished (b/l) Heart Exam: Positive: Irregular Rhythm, Other (pacemaker noted in left sided chest region); Negative: Murmurs Telemetry: Positive: Atrial fibrillation Abdomen Exam: Positive: Normal bowel sounds, Soft; Negative: Tenderness Extremity Exam: Negative: Edema, Tenderness, Swelling Skin Exam: Positive: Nl turgor and temperature Neuro Exam: Positive: Strength at 5/5 X4 ext, Cranial Nerves 3-12 NL, Other (Neg Brudenzki's sign) Psych Exam: Positive: Mood NL, Memory Intact, Oriented x 3 Vital Signs Vital Signs Date Time Temp Pulse Resp B/P (MAP) Pulse Ox O2 Delivery O2 Flow Rate FiO2 02/24/19 21:44 98.4 80 17 104/51 (68) 96 Nasal Cannula 2.0 Laboratory Data Labs 24H Laboratory Tests 2 02/24/19 18:11: Immature Granulocyte % (Auto) 0.2, White Blood Count 5.4, Red Blood Count 3.58L, Hemoglobin 10.7L, Hematocrit 32.9L, Mean Corpuscular Volume 91.9, Mean Corpu scular Hemoglobin 29.9, Mean Corpuscular Hemoglobin Concent 32.5, Red Cell Distribution Width 15.2H, Platelet Count 120L, Neutrophils (%) (Auto) 80.0H, Lymphocytes (%) (Auto) 6.3L, Monocytes (%) (Auto) 12.2H, Eosinophils (%) (Auto) 0.7, Basophils (%) (Auto) 0.6, Neutrophils # (Auto) 4.3, Lymphocytes # (Auto) 0.3L, Monocytes # (Auto) 0.7, Eosinophils # (Auto) 0.0, Basophils # (Auto) 0.0, Nucleated Red Blood Cells % (auto) 0.0, Anion Gap 7L, Glomerular Filtration Rate > 60.0, Lactic Acid Level 0.8, Calcium Level 8.1L, Aspartate Amino Transf (AST/SGOT) 18, Alanine Aminotransferase (ALT/SGPT) 13, Alkaline Phosphatase 44L, Total Bilirubin 0.7, Direct Bilirubin 0.3H, Total Creatine Kinase 118, Creatine Kinase MB 1.0, Creatine Kinase MB Relative Index 0.85, Troponin I < 0.02, Total Protein 6.2L, Albumin 2.8L, Albumin/Globulin Ratio 0.82L, Thyroid Stimulating Hormone (TSH) 0.073L CBC/BMP Laboratory Tests 02/24/19 18:11 Red Blood Count 3.58 L, Mean Corpuscular Volume 91.9, Mean Corpuscular Hemoglobin 29.9, Mean Corpuscular Hemoglobin Concent 32.5, Red Cell Distribution Width 15.2 H, Neutrophils (%) (Auto) 80.0 H, Lymphocytes (%) (Auto) 6.3 L, Monocytes (%) (Auto) 12.2 H, Eosinophils (%) (Auto) 0.7, Basophils (%) (Auto) 0.6, Neutrophils # (Auto) 4.3, Lymphocytes # (Auto) 0.3 L, Monocytes # (Auto) 0.7, Eosinophils # (Auto) 0.0, Basophils # (Auto) 0.0 Microbiology Microbiology 02/24/19 Blood Culture, Received Pending 02/24/19 Blood Culture, Received Pending Assessment/Plan 1. Pneumonia -Chest CT shows consolidation. Likely hospital acquired. Pt reported hospitalization in [facility] 2 weeks ago but no record indicating hospitalization; hospital visit for colonoscopy 12/2018 -Start pt on Vanco and Zosyn; MRSA screen and sputum cx. Consider down-grading abx with MRSA screen/sputum cx result -Resp therapy and Oxy therapy -Blood cx pending 2. Left sided pleural effusion, with left sided chest tube - no obvious sign of infection at chest tube site noted - moderate left pleural effusion on chest CT - chest tube drainage fluid analysis ordered 3. COPD -No obvious respiratory distress at this time -Resp therapy and oxy therapy 4.Hypothyroidism -Cont home med 5. Obstructive sleep apnea on CPAP -May use home CPAP -inpt CPAP 6. Sick sinus syndrome with pacemaker, currently a fib w/o RVR -rate controlled -cont to monitor the pt -denies any chest pain or palpitation -CHADVASC score 0 7. Stage IV small cell lung cancer, 2008 -s/p chemo and radiation -pt follows Dr. Gordon outpt DVT prophylaxis SCD and TEDS, heparin Diet regular I, Willis Mcbride, have independently examined this patient and performed my own physical exam, as well as reviewed the documentation and edited where necessary. I have discussed in detail with the resident / student the findings and plan of treatment as documented by the resident / student and edited their note. Patient developed massive right pleural effusion/consolidation. Empiric broad- spectrum antibiotic IV therapy started. Appreciate/agree with thoracic surgeon consult. Discus thoracocentesis with thoracic surgeon I agree with their findings and treatment plan and have edited their documentation. I will continue to follow the patient during this hospital stay. Plan / VTE VTE Prophylaxis Ordered?: Yes BRANDON RAYMOND DO Feb 24, 2019 22:18 WILLIS MCBRIDE DO Feb 25, 2019 07:13
[2019-02-24] MEDS ORDERED: VANCOMYCIN HCL 1,000 MG, VIAL MATE ADAPTER 1 EACH in D5W 250 ML IV ONE (22:45)
--- NOTE | 2019-02-24 23:59 | PHACANCOPD ---
PHARMACY VANCOMYCIN DOSING Pt Demographics Demographics Patient Age:63 , Weight:95.000 , Gender: male Adjusted Body Weight Date: 02/24/19, Adjusted Body Weight: Kg Events Past 24 Hours Events Past 24 Hours: NO: Dialysis, Diuretic Therapy, Change in CrCl, Fever, Elevation in WBC, Pending Diagnostics, Pending Procedures, Other Vancomycin Vancomycin Target Ranges: 15-20 mcg/ml Vancomycin Load Y/N: Yes Load Dose Date Time Vancomycin Load Dose: 2000mg Date: 02-25 Time: 0000 Vancomycin Dose Date: 02/24/19. Current Vancomycin Dose: [1000mg q8h] Intermittent Dosing?: No Labs Labs Item Value Date Time White Blood Count 5.4 10^3/uL 02/24/19 181 Glomerular Filtration Rate > 60.0 02/24/191810 Creatinine 0.90 MG/DL 02/24/19 181 Blood Urea Nitrogen 18 MG/DL 02/24/19 181 Vital Signs Label Value Date Time Patient Temperature 98.4 degrees F 02/24/192143 Temperature Source Oral 02/24/192143 Micro Microbiology 02/24/19 Blood Culture, Received Pending 02/24/19 Blood Culture, Received Pending Creatinine Clearance Date:02/24/19. Creatinine Clearance: [~85]. Pending Labs Trough 02-25 @1500 Assessment and Plan Maintaining Current Dose?: Yes Reason for dose change: No Dose Change Pharmacist Note Pharmacist Note Date: 02/24/19. Pharmacist note:Will monitor and make adjustments as needed. CARLOS JIM PHARMACY Feb 24, 2019 23:59
[2019-02-25] MEDS ORDERED: ALBUTEROL SULFATE 2.5 MG/0.5 ML INH NEB SOLN NEB PRN
[2019-02-25] MEDS ORDERED: ALBUTEROL 90 MCG/ACT 8GM HFA INHALER INH PRN
[2019-02-25] MEDS ORDERED: guaiFENesin ER 600 MG TAB PO PRN
[2019-02-25] MEDS: VANCOMYCIN HCL 1,000 MG, VIAL MATE ADAPTER 1 EACH in D5W 250 ML IV SCH ×3 (00:04→16:12)
--- NOTE | 2019-02-25 00:20 | REPVR ---
EXAM: CT Chest With Contrast EXAM DATE/TIME: 02/24/2019 10:47 PM CLINICAL HISTORY: 63 years old, male; Shortness of breath; Additional Info: PNA with chornic pleural effusion, chest tube on left TECHNIQUE: Imaging protocol: Computed tomography of the chest with intravenous contrast. 3D rendering: MIP reconstructed images were created and reviewed. Radiation optimization: All CT scans at this facility use at least one of these dose optimization techniques: automated exposure control; mA and/or kV adjustment per patient size (includes targeted exams where dose is matched to clinical indication); or iterative reconstruction. Contrast material: ISOVUE 370; Contrast volume: 75 ml; Contrast route: IV; COMPARISON: CT Chest with contrast 09/09/2018 9:48 AM FINDINGS: Limitations: Examination is limited by motion artifact. Tubes, catheters and devices: Pacemaker on the left with a lead tip at the right atrium and right ventricle. Left chest tube with the tip in the left posterior hemithorax. Lungs: Dense consolidations in the right lung. Compressive atelectasis in the left lower lobe. Pleural space: Small right pleural effusion. Moderate left pleural effusion. No pneumothorax. Heart: There is mitral annulus calcification. Heart size is within normal limits. Coronary arteries: Moderate coronary artery calcification. Mediastinum: Mediastinum is shifted to the right. Aorta: No aortic aneurysm. Mild atherosclerotic disease. Lymph nodes: Small mediastinal nodes. Bones/joints: Mild degenerative spine. No acute fracture. Soft tissues: Unremarkable. Gallbladder and bile ducts: Status post cholecystectomy. IMPRESSION: 1. Dense consolidations in the right lung. Increased from prior. 2. Moderate left pleural effusion. Decreased from prior. 3. Left chest tube. 4. Additional findings as described. Electronically signed by: Srikanth Cardozo On 02/25/2019 00:19:18 AM
[2019-02-25 02:00] VITALS: BP 107/51
[2019-02-25] MEDS: ALBUTEROL SULFATE 2.5 MG/0.5 ML INH NEB SOLN INH PRN (02:20)
[2019-02-25] MEDS: PIPERACILLIN/TAZOBACTAM SOD 4.5 GM in D5W MINI-BAG PLUS 50 ML IV SCH ×4 (04:05→22:31)
[2019-02-25 06:00] VITALS: BP 100/56
[2019-02-25] MEDS ORDERED: HEPARIN SOD (PORCINE) 5000 UNITS/ML VIAL SC SCH (06:00)
[2019-02-25] MEDS: LEVOTHYROXINE 88MCG TABLET (0.088 MG) PO SCH (06:24)
[2019-02-25 06:31] LABS: HEMATOCRIT 29.7 % (42.0-52.0); HEMOGLOBIN 9.6 g/dl (13.5-17.5); MEAN CORPUSCULAR HEMOGLOBIN 29.1 pg (27.0-33.0); MEAN CORPUSCULAR HGB CONC 32.3 g/dl (32.0-36.5); PLATELET COUNT, AUTOMATED 112 10^3/uL (150-450); WHITE BLOOD COUNT 3.5 10^3/uL (4.0-10.0)
[2019-02-25 06:51] LABS: BLOOD UREA NITROGEN 19 MG/DL (7-18); CALCIUM LEVEL 7.8 MG/DL (8.8-10.2); CARBON DIOXIDE LEVEL 28 MEQ/L (21-32); CHLORIDE LEVEL 104 MEQ/L (98-107); CREATININE FOR GFR 0.85 MG/DL (0.70-1.30); GLOMERULAR FILTRATION RATE > 60.0 (>49); GLUCOSE, FASTING 94 MG/DL (70-100); POTASSIUM SERUM 3.6 MEQ/L (3.5-5.1); SODIUM LEVEL 139 MEQ/L (136-145)
--- NOTE | 2019-02-25 07:36 | REP ---
REASON: Trauma. COMPARISON: 12/07/2018 The technique utilized in obtaining the radiograph has magnified the cardiac silhouette and accentuated the interstitial markings. Chronic changes are again seen in the right lung upper lobe region. The lung wells are hypo-expanded. There is an opacity in the right lower lobe representing a change from the prior exam. There is no significant change in the appearance of the left lung. There is a dual-chamber bipolar pacemaker device in place status quo. There is no significant change in the appearance of the osseous structures. IMPRESSION: 1. New right lower lobe opacity of uncertain etiology. 2. Chronic changes as described above.? Electronically Signed by Moises Dimas DO 02/25/2019 03:18 P
[2019-02-25] MEDS: CETIRIZINE (ZyrTEC) 10 MG TAB PO SCH (07:45)
[2019-02-25] MEDS: ASPIRIN 81 MG ENTERIC TAB PO SCH (07:46)
[2019-02-25] MEDS: HEPARIN SOD (PORCINE) 5000 UNITS/ML VIAL SC SCH ×2 (07:46→21:56)
--- NOTE | 2019-02-25 08:47 | ECGEPIP ---
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 Spontaneous AV conduction with left anterior hemiblock and right bundle branch block. Primary repolarization abnormalities new from 09/12/18 Clinical correlation advised Electronically Signed on 02-25-2019 8:47:04 EDT by Mello Walls
[2019-02-25] MEDS: IBUPROFEN 400 MG TAB PO PRN ×2 (09:48→21:57)
[2019-02-25 14:00] VITALS: BP 94/51
[2019-02-25] MEDS ORDERED: LevoFLOXacin IV 750 MG in IV 1 EA IV SCH (21:00)
--- NOTE | 2019-02-25 21:29 | IPNPDOC ---
Text Note Date of Service The patient was seen on 02/25/19. NOTE Subjective: Asking to have pleurX drained as he has not drained in 4 days now and he is concerned it is causing his shortness of breath Discussed his CT with R sided findings c/f new effusion vs. post obstructive PNA or collapse. Explained that thoracic surgery will evaluate his images and evaluate. Objective: Vitals: see below General Exam: Alert, Cooperative, No Acute Distress ENT: Atraumatic Chest Exam: Diminished breath sounds bilaterally, no noted crackle or wheezing Heart Exam: Irregularly irregular, PPM pocket in L chest Abdomen Exam: Normal bowel sounds, Soft; non tender Extremity Exam: No edema, tenderness, or swelling Neuro Exam: AOx3, 5/5 strength in bilateral UE and LE muscle groups Labs: See below Microbiology: See below Imagin02/24/2019: CT chest with IV contrast 1. Dense consolidations in the right lung. Increased from prior. 2. Moderate left pleural effusion. Decreased from prior. 3. Left chest tube. 4. Additional findings as described. Assessment: 63 yo man with sick sinus syndrome s/p PPM, COPD, stage 4 small cell lung CA s/p chemoradiation and prophylactic cranial radiation who presented to the ED with fever, chills, and dyspnea of [address] showing stable to improved chronic recurrent left pleural effusion with a new right sided dense consolidation. Initially consolidation was suspected to be an effusion that contributed to his dyspnea but on consultation with thoracic surgery, he felt that this was not a e ffusion and instead a likely post obstructive process with either proximal airway blocka or post obstructive pneumonia. He expressed that a thoracentesis would not yield much and perhaps may be beneficial to consult oncology as this could be a result of tumor invasion among other etiologies. Regardless, he appears to have a post obstructive pneumonia with the elevated inflammatory markers and fever, chills. 1. Pneumonia: Likely post obstructive per CT consolidation. Likely hospital acquired organisms given his frequent contact with the medical system. -Continue Vanco and pip/tazo -follow up MRSA screen for possible de-escalation -Resp therapy and Oxy therapy -follow up Blood cx -follow up L pleural effusion fluid culture 2. Left sided pleural effusion, with left sided chest tube - no obvious sign of infection at chest tube site noted - moderate left pleural effusion on chest CT - chest tube drainage Q3D per baseline 3. COPD -Resp therapy and oxy therapy 4.Hypothyroidism -Cont home med 5. Obstructive sleep apnea on CPAP -nightly CPAP 6. Sick sinus syndrome with pacemaker, currently a fib w/o RVR -rate controlled 7. Stage IV small cell lung cancer, 2008 -s/p chemo and radiation -pt follows Dr. Gordon outpt (consult his primary oncologist given the nature of his CT findings) DVT prophylaxis SCDs and heparin Diet regular Dispo planning: Pending clinical improvement and evaluation of his findings and status by his primary oncologist. VS,Fishbone, I+O VS, Fishbone, I+O Laboratory Tests 02/25/19 06:01 Red Blood Count 3.30 L, Mean Corpuscular Volume 90.0, Mean Corpuscular Hemoglobin 29.1, Mean Corpuscular Hemoglobin Concent 32.3, Red Cell Distribution Width 14.9 H, Calcium Level 7.8 L Vital Signs Date Time Temp Pulse Resp B/P (MAP) Pulse Ox O2 Delivery O2 Flow Rate FiO2 02/25/19 19:47 1.0 02/25/19 14:00 97.0 72 18 94/51 (65) 94 02/25/19 00:44 Nasal Cannula I&O- Last 24 Hours up to 6 AM 02/25/19 06:00 Intake Total 1090 ml Output Total 225 ml Balance 865 ml LLUVIA MIMS MD Feb 25, 2019 21:29
[2019-02-25 22:00] VITALS: BP 103/56
[2019-02-26] MEDS: VANCOMYCIN HCL 1,000 MG, VIAL MATE ADAPTER 1 EACH in D5W 250 ML IV SCH (00:35)
[2019-02-26] MEDS: PIPERACILLIN/TAZOBACTAM SOD 4.5 GM in D5W MINI-BAG PLUS 50 ML IV SCH ×4 (04:12→20:42)
[2019-02-26 06:00] VITALS: BP 120/64
[2019-02-26] MEDS: LEVOTHYROXINE 88MCG TABLET (0.088 MG) PO SCH (06:29)
[2019-02-26 07:35] LABS: HEMATOCRIT 30.3 % (42.0-52.0); HEMOGLOBIN 9.6 g/dl (13.5-17.5); MEAN CORPUSCULAR HEMOGLOBIN 29.2 pg (27.0-33.0); MEAN CORPUSCULAR HGB CONC 31.7 g/dl (32.0-36.5); MEAN CORPUSCULAR VOLUME 92.1 fl (80.0-96.0); PLATELET COUNT, AUTOMATED 118 10^3/uL (150-450); RED BLOOD COUNT 3.29 10^6/uL (4.30-6.10); WHITE BLOOD COUNT 3.9 10^3/uL (4.0-10.0)
[2019-02-26 07:58] LABS: BLOOD UREA NITROGEN 23 MG/DL (7-18); CARBON DIOXIDE LEVEL 29 MEQ/L (21-32); CHLORIDE LEVEL 105 MEQ/L (98-107); CREATININE FOR GFR 1.05 MG/DL (0.70-1.30); GLOMERULAR FILTRATION RATE > 60.0 (>49); GLUCOSE, FASTING 85 MG/DL (70-100); POTASSIUM SERUM 3.4 MEQ/L (3.5-5.1); SODIUM LEVEL 139 MEQ/L (136-145)
[2019-02-26] MEDS ORDERED: POTASSIUM CHLORIDE 10 MEQ SR TABLET PO ONE (08:30)
[2019-02-26 08:45] LABS: VANCOMYCIN LEVEL TROUGH 19.6 UG/ML (10.0-20.0)
[2019-02-26] MEDS: CETIRIZINE (ZyrTEC) 10 MG TAB PO SCH (09:05)
[2019-02-26] MEDS: HEPARIN SOD (PORCINE) 5000 UNITS/ML VIAL SC SCH ×2 (09:05→20:42)
[2019-02-26] MEDS: ASPIRIN 81 MG ENTERIC TAB PO SCH (09:05)
--- NOTE | 2019-02-26 13:57 | IPNPDOC ---
Text Note Date of Service The patient was seen on 02/26/19. NOTE Subjective: Feels better after pleurX drainage, sitting up in chair Discussed that I spoke with Dr. Goodman and that Dr. Braswell is coming to see him to evaluate R lung process seen on CT, agrees with plan Objective: Vitals: see below General Exam: Alert, Cooperative, No Acute Distress ENT: Atraumatic Chest Exam: Diminished breath sounds bilaterally, no crackles or wheezing Heart Exam: Irregularly irregular, PPM pocket in L chest Abdomen Exam: Normoactive bowel sounds, soft; non tender Extremity Exam: Warm and well perfused, no edema, tenderness, or swelling Neuro Exam: AOx3, 5/5 strength in bilateral UE and LE muscle groups Labs: See below Microbiology: See below Imagin02/24/2019: CT chest with IV contrast 1. Dense consolidations in the right lung. Increased from prior. 2. Moderate left pleural effusion. Decreased from prior. 3. Left chest tube. 4. Additional findings as described. Assessment: 63 yo man with sick sinus syndrome s/p PPM, COPD, stage 4 small cell lung CA s/p chemoradiation and prophylactic cranial radiation who presented to the ED with fever, chills, and dyspnea of [address] showing stable to improved chronic recurrent left pleural effusion with a new right sided dense consolidation. Initially consolidation was suspected to be an effusion that contributed to his dyspnea but on consultation with thoracic surgery, he felt that this was not a effusion and instead a likely post obstructive process with either proximal airway blockage or post obstructive pneumonia. He expressed that a thoracentesis would not yield much and perhaps may be beneficial to speak to Dr. Goodman who suggested consultation to pulmonology to investigate the possible etiologies. I spoke with Dr. Braswell who will see the patient shortly. In the meantime he will be treated for post obstructive pneumonia. 1. Pneumonia: Post obstructive per CT consolidation. -Continue pip/tazo, dc vanc after MRSA was negative -Supplemental oxygen -follow up Blood cx -follow up L pleural effusion fluid culture 2. Left sided pleural effusion, with left sided chest tube - no obvious sign of infection at chest tube site noted - moderate left pleural effusion on chest CT - chest tube drainage Q3D per baseline - follow up fluid studies 3. COPD -Resp therapy and oxy therapy 4.Hypothyroidism -Cont home med 5. Obstructive sleep apnea on CPAP -nightly CPAP 6. Sick sinus syndrome with pacemaker, currently a fib w/o RVR -rate controlled 7. Stage IV small cell lung cancer, 2008 -s/p chemo and radiation -pt follows Dr. Gordon outpt --> spoke with her, aware that pulmonology will be evaluating him DVT prophylaxis SCDs and heparin Diet regular Dispo planning: Pending clinical improvement and evaluation of his findings and status by his primary oncologist. VS,Fishbone, I+O VS, Fishbone, I+O Laboratory Tests 02/26/19 07:05 Red Blood Count 3.29 L, Mean Corpuscular Volume 92.1, Mean Corpuscular Hemoglobin 29.2, Mean Corpuscular Hemoglobin Concent 31.7 L, Red Cell Distribution Width 14.9 H, Calcium Level 8.0 L Vital Signs Date Time Temp Pulse Resp B/P (MAP) Pulse Ox O2 Delivery O2 Flow Rate FiO2 02/26/19 06:00 97.1 74 18 120/64 (82) 97 02/25/19 22:00 1.0 02/25/19 00:44 Nasal Cannula I&O- Last 24 Hours up to 6 AM 02/26/19 05:59 Intake Total 1310 ml Output Total 2000 ml Balance -690 ml LLUVIA MIMS MD Feb 26, 2019 13:57
[2019-02-26 14:00] VITALS: BP 105/52
[2019-02-26] MEDS: ALBUTEROL SULFATE 2.5 MG/0.5 ML INH NEB SOLN INH PRN ×2 (14:48→23:01)
[2019-02-26] MEDS: IBUPROFEN 400 MG TAB PO PRN (15:08)
[2019-02-26 22:00] VITALS: BP 100/49
[2019-02-27] MEDS: PIPERACILLIN/TAZOBACTAM SOD 4.5 GM in D5W MINI-BAG PLUS 50 ML IV SCH ×2 (04:08→09:19)
[2019-02-27] MEDS: LEVOTHYROXINE 88MCG TABLET (0.088 MG) PO SCH (05:52)
[2019-02-27 06:00] VITALS: BP 107/51
[2019-02-27 07:10] LABS: HEMATOCRIT 30.9 % (42.0-52.0); HEMOGLOBIN 9.6 g/dl (13.5-17.5); MEAN CORPUSCULAR HGB CONC 31.1 g/dl (32.0-36.5); MEAN CORPUSCULAR VOLUME 93.4 fl (80.0-96.0); PLATELET COUNT, AUTOMATED 120 10^3/uL (150-450); RED BLOOD COUNT 3.31 10^6/uL (4.30-6.10); WHITE BLOOD COUNT 4.4 10^3/uL (4.0-10.0)
[2019-02-27 07:28] LABS: BLOOD UREA NITROGEN 18 MG/DL (7-18); CARBON DIOXIDE LEVEL 29 MEQ/L (21-32); CHLORIDE LEVEL 106 MEQ/L (98-107); CREATININE FOR GFR 0.91 MG/DL (0.70-1.30); GLOMERULAR FILTRATION RATE > 60.0 (>49); GLUCOSE, FASTING 87 MG/DL (70-100); POTASSIUM SERUM 3.7 MEQ/L (3.5-5.1); SODIUM LEVEL 140 MEQ/L (136-145)
[2019-02-27] MEDS: ALBUTEROL SULFATE 2.5 MG/0.5 ML INH NEB SOLN INH PRN (08:28)
[2019-02-27] MEDS: CETIRIZINE (ZyrTEC) 10 MG TAB PO SCH (09:18)
[2019-02-27] MEDS: ASPIRIN 81 MG ENTERIC TAB PO SCH (09:18)
[2019-02-27] MEDS: HEPARIN SOD (PORCINE) 5000 UNITS/ML VIAL SC SCH (09:19)
[2019-02-27] MEDS ORDERED: LevoFLOXacin 750 MG TABLET PO SCH (11:30)
[2019-02-27] MEDS ORDERED: LEVA750T7 PO (12:00)
--- NOTE | 2019-02-27 12:02 | DS.PDOC ---
Discharge Summary General Date of Admission Feb 24, 2019 at 22:47 Date of Discharge 02/27/2019 Attending Physician: LLUVIA MIMS MD Specialist/Consultants Involve: Tru Braswell Specialist/Consultants Involve Called outpatient oncologist Dr. Goodman Discharge Summary PROCEDURES PERFORMED DURING STAY: None ADMITTING DIAGNOSES: 1. Pneumonia DISCHARGE DIAGNOSES: 1. Post obstructive pneumonia 2. left pleural effusion 3. Stage 4 small cell lung cancer 4. COPD 5. KRISTAN 6. Hypothyroidism 7. Sick sinus syndrome with PPM COMPLICATIONS/CHIEF COMPLAINT: Pleural Effusion, Rll Pneumonia, Short Of Breath. HISTORY OF PRESENT ILLNESS: 63 yo man with sick sinus syndrome s/p PPM, COPD, stage 4 small cell lung CA s/p chemoradiation and prophylactic cranial radiation, chronic left pleural effusion with a pleurX in place who presented to the ED with fever, chills, and dyspnea of 1 day. HOSPITAL COURSE: In the ED a CT chest showed a stable to improved chronic recurrent left pleural effusion with a new right sided dense consolidation. Fluid from the left was sent for studies given the presence of the pleurX and blood cultures we sent. He was started on empiric vanc/zosyn and admitted to medicine with plan for thoracic surgery consultation for possible thoracentesis. Initially consolidation was suspected to be an effusion that contributed to his dyspnea but on consultation with thoracic surgery, Dr. Kwon felt that this was not a effusion and instead a likely post obstructive process with either proximal blockage/changes with a post obstructive pneumonia. He expressed that a thoracentesis would not yield much and perhaps may be beneficial to speak to Dr. Goodman his oncologist for background context in a patient with significant chemoradiation history in that region. Dr. Goodman agreed with antibiotic treatment and suggested consultation with pulmonology to investigate the possible etiologies. Pulmonology was consulted and Dr. Braswell who knows the patient very well reported that he has had such a process and presentation before and that he would benefit from completion of the antibiotic course and otherwise given his resolved hypoxemia, resolved fevers and looked at his baseline, he could be discharged home to follow up with him in the office within two weeks where he may repeat imaging and evaluate from there on the steps forward. He is therefore being discharged home to complete a course of antibiotics for pneumonia with levofloxacin for a total 7 day course. His hospital course by issue was as follows: 1. Pneumonia: Post obstructive per suggestion of the CT consolidation. -He was initially treated with vanc and zosyn for two days. He had a negative MRSA swab and vancomycin was discontinued while he continued zosyn. On day 3 (day of discharge), he was switched to levofloxacin 750mg daily that he will take for 4 days to completed a 7 day course. -He initially required supplemental oxygen for mild hypoxemia that resolved on hospital day 2. -Blood cultures were negative, while the pleural fluid was not sent for analysis. 2. Left sided pleural effusion, with left sided pleurX - He had no obvious sign of infection at the pleurX site - While inpatient, we continued drainage every three days as per baseline with improvement dyspnea symptoms - By discharge, he reported feeling well and was fully ambulatory with no dyspnea on exertion 3. COPD -continued home inhaler 4.Hypothyroidism -Cont home med 5. Obstructive sleep apnea on CPAP -continued nightly CPAP 6. Sick sinus syndrome with pacemaker, currently a fib w/o RVR -continued rate control 7. Stage IV small cell lung cancer, 2008 -s/p chemo and radiation -pt follows Dr. Gordon outpt --> updated her DISCHARGE MEDICATIONS: Please see below. ALLERGIES: Please see below. PHYSICAL EXAMINATION ON DISCHARGE: VITAL SIGNS: Please see below. General Exam: Alert, Cooperative, No Acute Distress ENT: Atraumatic Chest Exam: Diminished breath sounds bilaterally, no crackles or wheezing Heart Exam: Irregularly irregular, PPM pocket in L chest Abdomen Exam: Normoactive bowel sounds, soft; non tender Extremity Exam: Warm and well perfused, no edema, tenderness, or swelling Neuro Exam: AOx3, 5/5 strength in bilateral UE and LE muscle groups LABORATORY DATA: Please see below. IMAGIN02/24/2019: CT chest with IV contrast 1. Dense consolidations in the right lung. Increased from prior. 2. Moderate left pleural effusion. Decreased from prior. 3. Left chest tube. 4. Additional findings as described. 02/24/2019: CXR 1. New right lower lobe opacity of uncertain etiology. 2. Chronic changes as described above.? PROGNOSIS: Good ACTIVITY: As tolerated DIET: Regular, as tolerated DISCHARGE PLAN: Home with close pulmonology and oncology follow up DISPOSITION: Home DISCHARGE INSTRUCTIONS: 1. Please continue your pleurX care and drainage as prescribed and complete the levofloxacin course. ITEMS TO FOLLOWUP ON ON OUTPATIENT: 1. Pneumonia resolution 2. New right lung CT findings - to follow with pulmonology about investigation further if persistent 3. Stage 4 small cell lung cancer - to follow up with Dr. Goodman DISCHARGE CONDITION: Good TIME SPENT ON DISCHARGE: Greater than 30 minutes. Vital Signs/I&Os Vital Signs Date Time Temp Pulse Resp B/P (MAP) Pulse Ox O2 Delivery O2 Flow Rate FiO2 02/27/19 06:00 97.8 70 18 107/51 (69) 95 02/25/19 22:00 1.0 02/25/19 00:44 Nasal Cannula I&O- Last 24 Hours up to 6 AM 02/27/19 06:00 Intake Total 1620 ml Output Total 900 ml Balance 720 ml Laboratory Data Labs 24H Laboratory Tests 2 02/27/19 06:53: Nucleated Red Blood Cells % (auto) 0.0, Anion Gap 5L, Glomerular Filtration Rate > 60.0, Blood Urea Nitrogen 18, Creatinine 0.91, Sodium Level 140, Potassium Level 3.7, Chloride Level 106, Carbon Dioxide Level 29, Calcium Level 8.0L CBC/BMP Laboratory Tests 02/27/19 06:53 Red Blood Count 3.31 L, Mean Corpuscular Volume 93.4, Mean Corpuscular Hemoglobin 29.0, Mean Corpuscular Hemoglobin Concent 31.1 L, Red Cell Distribution Width 14.8 H, Calcium Level 8.0 L Microbiology Microbiology 02/24/19 Blood Culture - Preliminary, Resulted No Growth after 48 hours. All Specime... 02/24/19 Blood Culture - Preliminary, Resulted No Growth after 48 hours. All Specime... Discharge Medications Scheduled Aspirin (Aspirin EC) 81 Mg Tablet.dr, 81 MG PO DAILY, (Reported) Cetirizine HCl (Cetirizine HCl) 10 Mg Tablet, 10 MG PO DAILY, (Reported) Furosemide (Lasix) 40 Mg Tab, 40 MG PO DAILY, (Reported) Levofloxacin (Levaquin) 750 Mg Tablet, 750 MG PO DAILY@06 Levothyroxine Sodium (Levoxyl) 88 Mcg Tab, 88 MCG PO DAILY, (Reported) Spironolactone (Spironolactone) 25 Mg Tab, 25 MG PO DAILY, (Reported) Scheduled PRN Albuterol Sulf (Albuterol Sulfate) 2.5 Mg/3 Ml Nebu, 2.5 MG NEB QID PRN for SHORTNESS OF BREATH, (Reported) Albuterol Sulfate (Ventolin Hfa) 108 Mcg/Act Aer, 2 PUFF INH Q4H PRN for SHORTNESS OF BREATH, (Reported) Guaifenesin (Mucinex) 600 Mg Tab.er.12h, 600 MG PO Q12H PRN for CONGESTION, (Reported) Ibuprofen (Ibuprofen) 200 Mg Tab, 400 MG PO Q6H PRN for PAIN, (Reported) Allergies Coded Allergies: niacin (Verified Adverse Reaction, Intermediate, FLUSHED X 1.5HOUR, 12/24/18) LLUVIA MIMS MD Feb 27, 2019 12:02
--- NOTE | 2019-02-27 15:18 | IPN ---
DATE: 02/27/2019 I was asked to see Cristofer Palma. He is well known to me from the outpatient setting. He has significant underlying obstructive sleep apnea syndrome for which he is completely compliant with his continuous positive airway pressure (CPAP). He is also known to have had small cell lung cancer, treated with chemo and radiation. He has had significant difficulties through the years with malclearance of secretions on the right due to progressive volume loss from post-radiation changes. He underwent bronchoscopy for this about a year ago and was found to have mainly extrinsic compression but no tumor recurrence. He has also had issues with pleural fluid on the left for which he has a PleurX catheter which he drains regularly. He was admitted on this occasion with increased shortness of breath. He had a significant fever. He is being treated for a right-sided pneumonia evident by x-ray and CAT scan. Over the last 24 hours, he has been afebrile. White blood cell count now 4.4, hemoglobin 9.6, platelet count 120,000. Electrolytes are acceptable. He states that he is feeling back to his normal self. He has been on IV Zosyn. Blood cultures negative. No sputum culture is available. He has been ambulating. Maximum temperature (T max) 97.3, blood pressure in the 120s, heart rate generally in the 60s with a sinus mechanism. Respiratory rate 16-18 without accessory muscle use. HEENT otherwise normocephalic, atraumatic. Pupils reactive. Neck is supple. Trachea is midline. Chest shows egophony in the right mid zone with decreased breath sounds at the right base. PleurX catheter in place on the left with decreased breath sound intensity at that base. Cardiac exam generally regular. Peripheral pulses palpable. Trace edema. Abdomen: Obese, benign with active bowel sounds. Extremities: No cyanosis or clubbing. Neurologic: He is awake, alert and appropriate. X-rays and CAT scans have been reviewed. IMPRESSION: 1. Chronically abnormal x-ray, now with right-sided pneumonia and progressive volume loss. 2. Chronic left pleural effusion with PleurX catheter in place. 3. Previously treated small cell lung cancer. 4. Obstructive sleep apnea syndrome, compliant with therapy. RECOMMENDATIONS: His CAT scan shows significant air bronchograms at the right apex consistent with open airways. He has had difficulties in the past with mucous plugging at the right base, and this is going to be an ongoing and progressive difficulty, not able to be fixed by bronchoscopy. Anything that we gain with that would be extremely short-lived given the progressive volume loss he has had by x-ray over the last year. I did discuss this with him. Clinically, he is feeling much better. I would change to oral regimen at any point. His oxygenation status is acceptable. We will increase the interventions to help him clear secretions. I feel very comfortable following this in the outpatient setting given his improvement. Certainly, at some point we could consider bronchoscopy as an outpatient if need be, but, again, any benefit would be extremely short-lived in view of the above. Further recommendations will be made in the progress record as new information becomes available.
[2019-02-28] MEDS ORDERED: LevoFLOXacin 750 MG TABLET PO SCH (06:00)
== END 2019-02-27 14:44 | disposition home or self-care (01) | DRG 194 ==
LOC: EDBD 17:38 → M ED 17:38 → M ED INP 22:47 → M MS4PR 02-25 01:45
PROVIDERS: ADMIT Internal Medicine; ATTEND Internal Medicine
DX: J18.9 Pneumonia, unspecified organism (principal); J90 Pleural effusion, not elsewhere classified; J44.9 Chronic obstructive pulmonary disease, unspecified; G47.33 Obstructive sleep apnea (adult) (pediatric); I48.91 Unspecified atrial fibrillation; E03.9 Hypothyroidism, unspecified; Z85.118 Personal history of other malignant neoplasm of bronchus and lung; Z92.21 Personal history of antineoplastic chemotherapy; Z92.3 Personal history of irradiation; Z87.442 Personal history of urinary calculi; Z79.82 Long term (current) use of aspirin; Z79.899 Other long term (current) drug therapy; Z88.8 Allergy status to other drugs, medicaments and biological substances; Z95.0 Presence of cardiac pacemaker

== ENCOUNTER 2019-04-18 12:38 | Emergency (ER) | payer OTHER ==
[~2019-04-18] VITALS: Ht 177.8 cm; Wt 95.5 kg
[~2019-04-18 12:38] MED LIST changes: +ASPI-161 PO; +CETI10TA4 PO
[2019-04-18] MEDS ORDERED: KETOROLAC 30 MG/ML VIAL (J1885) IV ONE (13:15)
[2019-04-18] MEDS ORDERED: NS 1,000 ML IV SCH (13:15)
[2019-04-18 13:27] LABS: HEMOGLOBIN 10.1 g/dl (13.5-17.5); MEAN CORPUSCULAR HEMOGLOBIN 28.2 pg (27.0-33.0); MEAN CORPUSCULAR HGB CONC 30.6 g/dl (32.0-36.5); MEAN CORPUSCULAR VOLUME 92.2 fl (80.0-96.0); PLATELET COUNT, AUTOMATED 168 10^3/uL (150-450); RED BLOOD COUNT 3.58 10^6/uL (4.30-6.10); WHITE BLOOD COUNT 4.5 10^3/uL (4.0-10.0)
[2019-04-18 13:59] LABS: BLOOD UREA NITROGEN 20 MG/DL (7-18); CARBON DIOXIDE LEVEL 31 MEQ/L (21-32); CHLORIDE LEVEL 108 MEQ/L (98-107); CREATININE FOR GFR 0.85 MG/DL (0.70-1.30); GLOMERULAR FILTRATION RATE > 60.0 (>49); GLUCOSE, FASTING 80 MG/DL (70-100); POTASSIUM SERUM 4.2 MEQ/L (3.5-5.1); SODIUM LEVEL 145 MEQ/L (136-145)
[2019-04-18] MEDS ORDERED: CARI1TAB7 PO (14:13)
[2019-04-18] MEDS ORDERED: CARISOPRODOL 350 MG TAB PO ONE (14:15)
[2019-04-18 14:31] VITALS: BP 94/58
== END 2019-04-18 14:36 | disposition home or self-care (01) ==
LOC: M ED 12:38
DX: M62.838 Other muscle spasm (principal); Z88.8 Allergy status to other drugs, medicaments and biological substances; Z79.82 Long term (current) use of aspirin; Z79.899 Other long term (current) drug therapy; E11.9 Type 2 diabetes mellitus without complications
CPT/HCPCS: 80048; 85027; 99284; J1885

== ENCOUNTER → 2019-04-21 | Outpatient (REF) | payer OTHER ==
[~2019-04-21] MED LIST changes: +CARI1TAB7 PO
[2019-04-21 16:59] LABS: BASO # 0.1 10^3/uL (0.0-0.2); EOS # 0.2 10^3/uL (0.0-0.5); EOS % 3.2 % (0.0-3.0); HEMATOCRIT 35.4 % (42.0-52.0); HEMOGLOBIN 10.7 g/dl (13.5-17.5); LYMPH # 0.5 10^3/uL (1.5-5.0); LYMPH % 10.8 % (24.0-44.0); MEAN CORPUSCULAR HEMOGLOBIN 28.7 pg (27.0-33.0); MEAN CORPUSCULAR HGB CONC 30.2 g/dl (32.0-36.5); MEAN CORPUSCULAR VOLUME 94.9 fl (80.0-96.0); MONO # 0.4 10^3/uL (0.0-0.8); MONO % 8.4 % (0.0-5.0); NEUTROPHILS # 3.8 10^3/uL (1.5-8.5); NEUTROPHILS % 76.4 % (36.0-66.0); PLATELET COUNT, AUTOMATED 181 10^3/uL (150-450); RED BLOOD COUNT 3.73 10^6/uL (4.30-6.10)
[2019-04-21 17:20] LABS: BLOOD UREA NITROGEN 22 MG/DL (7-18); CALCIUM LEVEL 7.8 MG/DL (8.8-10.2); CARBON DIOXIDE LEVEL 32 MEQ/L (21-32); CHLORIDE LEVEL 105 MEQ/L (98-107); CREATININE FOR GFR 0.87 MG/DL (0.70-1.30); GLOMERULAR FILTRATION RATE > 60.0 (>49); GLUCOSE, FASTING 82 MG/DL (70-100); MAGNESIUM LEVEL 2.2 MG/DL (1.8-2.4); POTASSIUM SERUM 4.4 MEQ/L (3.5-5.1); SODIUM LEVEL 141 MEQ/L (136-145)
== END ==
LOC: M SFHCLERA 11:28
PROVIDERS: ATTEND Family Medicine
DX: J90 Pleural effusion, not elsewhere classified (principal); R25.2 Cramp and spasm

== ENCOUNTER 2019-04-28 17:31 | Inpatient (IN) | payer OTHER ==
[~2019-04-28] VITALS: Ht 180.3 cm; Wt 99.1 kg
[2019-04-28] MEDS ORDERED: NS 1,000 ML IV ONE (18:15)
[2019-04-28 18:18] LABS: VENOUS BASE EXCESS 1.8 (-2.0-2.0); VENOUS HCO3 28.6 MEQ/L (23.0-27.0); VENOUS PARTIAL PRESSURE CO2 53.9 mmHg (38.0-50.0); VENOUS PARTIAL PRESSURE O2 36.7 mmHg (30.0-50.0); VENOUS PH 7.342 UNITS (7.330-7.430); VENOUS STANDARD HCO3 25.3 MEQ/L; VENOUS TOTAL CO2 30.2 MEQ/L (24.0-28.0)
[2019-04-28 18:37] LABS: BASO % 0.2 % (0.0-1.0); EOS % 0.2 % (0.0-3.0); HEMOGLOBIN 12.4 g/dl (13.5-17.5); LYMPH # 0.5 10^3/uL (1.5-5.0); LYMPH % 10.9 % (24.0-44.0); MEAN CORPUSCULAR HEMOGLOBIN 28.1 pg (27.0-33.0); MEAN CORPUSCULAR VOLUME 90.5 fl (80.0-96.0); MONO # 0.4 10^3/uL (0.0-0.8); MONO % 9.9 % (0.0-5.0); NEUTROPHILS # 3.2 10^3/uL (1.5-8.5); NEUTROPHILS % 78.1 % (36.0-66.0); PLATELET COUNT, AUTOMATED 119 10^3/uL (150-450); RED BLOOD COUNT 4.42 10^6/uL (4.30-6.10); WHITE BLOOD COUNT 4.1 10^3/uL (4.0-10.0)
[2019-04-28 18:56] LABS: ALBUMIN 2.6 GM/DL (3.2-5.2); ALT/SGPT 18 U/L (12-78); BILIRUBIN,DIRECT 0.1 MG/DL (0.0-0.2); BILIRUBIN,TOTAL 0.7 MG/DL (0.2-1.0); BLOOD UREA NITROGEN 16 MG/DL (7-18); CALCIUM LEVEL 7.7 MG/DL (8.8-10.2); CARBON DIOXIDE LEVEL 30 MEQ/L (21-32); CHLORIDE LEVEL 99 MEQ/L (98-107); CK-MB VALUE MASS 1.2 NG/ML (<3.6); CPK CREATINE PHOSPHOKINASE 205 U/L (39-308); CREATININE FOR GFR 0.85 MG/DL (0.70-1.30); GLOMERULAR FILTRATION RATE > 60.0 (>49); GLUCOSE, FASTING 81 MG/DL (70-100); MB/CK RELATIVE INDEX 0.59 (< OR =4); POTASSIUM SERUM 4.4 MEQ/L (3.5-5.1); SODIUM LEVEL 137 MEQ/L (136-145); THYROID STIMULATING HORMONE 0.193 uIU/ML (0.358-3.740); TROPONIN I < 0.02 NG/ML (< 0.10)
--- NOTE | 2019-04-28 19:00 | REP ---
HISTORY: Altered mental status. COMPARISON: Multiple, the latest 02/24/2019. Abnormal patchy opacities in the right lung field, status quo. Cardiomegaly accentuated by technique. The technique utilized in obtaining the radiograph has magnified the cardiac silhouette and accentuated the interstitial markings. Dual chamber bipolar pacemaker device, status quo. No change in the left lung. Chronic fibrotic changes suspected, status quo. No change in the osseous structures. IMPRESSION: No significant change. Chronic changes as described above. Correlate clinically to rule out the possibility of acute disease superimposed by chronic change. Electronically Signed by Moises Dimas DO 04/28/2019 07:49 P
[2019-04-28] MEDS ORDERED: ACETAMINOPHEN TAB 650MG DOSE (2X325MG) PO ONE (19:15)
[2019-04-28] MEDS ORDERED: cefTRIAXone SOD 2 GM in D5W MINI-BAG PLUS 50 ML IV ONE (19:15)
--- NOTE | 2019-04-28 20:09 | REPVR ---
PROCEDURE INFORMATION: Exam: CT Head Without Contrast Exam date and time: 04/28/2019 7:34 PM Clinical history: 63 years old, male; Altered mental status/memory loss TECHNIQUE: Imaging protocol: Computed tomography of the head without contrast. Radiation optimization: All CT scans at this facility use at least one of these dose optimization techniques: automated exposure control; mA and/or kV adjustment per patient size (includes targeted exams where dose is matched to clinical indication); or iterative reconstruction. COMPARISON: CT Head without contrast 04/29/2018 9:03 AM FINDINGS: Brain: No intracranial mass, mass effect or midline shift. No acute intracranial hemorrhage. No CT evidence of acute cortical infarct. Ventricles: Ventricles, cisterns, and sulci are normal in size for age. Bones/joints: No calvarial fracture or destructive process. Sinuses: Imaged paranasal sinuses are clear. Mastoid air cells: Mastoid air cells are normally aerated. Orbits: Imaged orbits are unremarkable. Soft tissues: No focal extracranial soft tissue swelling. IMPRESSION: No acute or concerning focal intracranial abnormality. Electronically signed by: Goyo Rondon On 04/28/2019 20:09:18 PM
--- NOTE | 2019-04-28 20:17 | REPVR ---
PROCEDURE INFORMATION: Exam: CT Chest Without Contrast Exam date and time: 04/28/2019 7:34 PM Clinical history: 63 years old, male; Chest pain; Additional info: Pneumonia TECHNIQUE: Imaging protocol: Computed tomography of the chest without contrast. Radiation optimization: All CT scans at this facility use at least one of these dose optimization techniques: automated exposure control; mA and/or kV adjustment per patient size (includes targeted exams where dose is matched to clinical indication); or iterative reconstruction. COMPARISON: CT Chest with contrast 02/24/2019 10:32 PM FINDINGS: Limited study without IV contrast and also limited by motion, pacemaker artifacts and artifacts resulting from patient being scanned with the arms across the body. Right lung consolidative change is again present, although there is improvement in aeration of the right lung base with residual airspace filling.. There is concern for a right hilar or infrahilar mass with irregular margins, difficult to measure but possibly up to 4 cm. Small right pleural effusion and large left pleural effusion are present. No underlying pulmonary edema or pneumothorax. Heart is enlarged with pacemaker leads also present. No acute osseous abnormality IMPRESSION: Improved aeration of the right lung base although with residual infiltrates and persistent right upper lobe consolidation. Concern for a right hilar or infrahilar mass, difficult to measure on this type of study. Moderate left pleural effusion without evidence of pulmonary edema. Electronically signed by: Goyo Rondon On 04/28/2019 20:16:56 PM
--- NOTE | 2019-04-28 20:19 | REPVR ---
PROCEDURE INFORMATION: Exam: CT Abdomen And Pelvis Without Contrast Exam date and time: 04/28/2019 7:34 PM Clinical history: 63 years old, male; Abdominal pain; Localized; Left lower quadrant (llq); Additional info: Llq pain, h/o stones TECHNIQUE: Imaging protocol: Computed tomography of the abdomen and pelvis without contrast. Radiation optimization: All CT scans at this facility use at least one of these dose optimization techniques: automated exposure control; mA and/or kV adjustment per patient size (includes targeted exams where dose is matched to clinical indication); or iterative reconstruction. COMPARISON: No relevant prior studies available. FINDINGS: ABDOMEN: Limited exam without IV or enteric contrast and also significantly limited by motion and artifact related to the patient being scanned with the arms across the body. Limited diagnostic value to this study. Grossly, the liver, spleen, pancreas, adrenals are unremarkable. Gallbladder is absent. Nonobstructive bilateral renal calculi are present with no hydronephrosis. Left UVJ stone measuring 3 mm is seen on axial image 134 without significant collecting system dilatation proximally. No evidence of bowel obstruction, pneumoperitoneum or free abdominal fluid. Atherosclerotic change present in the aorta, without aneurysm. PELVIS: Urinary bladder appears normal. Appendix is not visualized. No evidence of diverticulitis. Degenerative changes are seen in the lumbar spine with disc height loss, endplate osteophytes and hypertrophic facet arthropathy. IMPRESSION: Bilateral nonobstructive nephrolithiasis, and small 2-3 mm left UVJ stone with proximal obstruction. No obvious acute bowel abnormality on this limited study Electronically signed by: Goyo Rondon On 04/28/2019 20:18:54 PM
--- NOTE | 2019-04-28 20:49 | HPEPDOC ---
[facility] Medical History & Physical Date of Admission Apr 28, 2019 Date of Service: Apr 28, 2019 Primary Care Physician: JUSTIN DOSS MD Attending Physician: ORESTES CH MD History and Physical TIME OF SERVICE: 10:50 PM CHIEF COMPLAINT: Weakness HISTORY OF PRESENT ILLNESS: This is a 63-year-old male who presents with complaints of weakness, fever and difficulty walking today. At his baseline he walks on his own. Associated symptoms include right sided, nonradiating, 10 /10 abdominal pain, frequent urination, with a change in the smell of the urine and constipation today. He denies having nausea or vomiting, and denies having pain with urination. REVIEW OF SYSTEMS: 12 point review of systems negative except as listed in HPI PAST MEDICAL/ SURGICAL HISTORY: Atrial fibrillation / tachy-bradycardia syndrome syndrome, status post pacemaker placement. COPD Stage IV small cell lung cancer status post chemoradiation and prophylactic cranial radiation. Hypothyroidism. KRISTAN on CPAP. Iron deficiency anemia History of nephrolithiasis Status post umbilical hernia repair. Status post tonsillectomy. Status post partial colectomy SOCIAL HISTORY: Former smoker FAMILY HISTORY: Diabetes ALLERGIES: Please see below. HOME MEDICATIONS: Please see below. PHYSICAL EXAMINATION: VITAL SIGNS: Please see below. GENERAL APPEARANCE: Well-nourished, well-developed, appears older than stated age HEENT: Normocephalic, atraumatic, mucous membranes slightly dry. Nasal cannula is in place CARDIOVASCULAR: Regular rate and rhythm. No murmurs, rubs or gallops LUNGS: Clear to auscultation. ABDOMEN: Bowel sounds are hypoactive. Abdomen is soft and nontender on palpation MUSCULOSKELETAL: Range of motion is intact in all 4 extremities. INTEGUMENT: His skin is not flushed or diaphoretic NEUROLOGICAL: Cranial nerves II-12 grossly intact. Speech is not dysarthric, strength is 5 out of 5 in all extremities PSYCHIATRIC: Alert and oriented, able to understand and follow commands LABORATORY DATA: See below. IMAGING: Chest x-ray " IMPRESSION: No significant change. Chronic changes as described above. Correlate clinically to rule out the possibility of acute disease superimposed by chronic change." CT head " IMPRESSION: No acute or concerning focal intracranial abnormality." Chest CT : IMPRESSION: Improved aeration of the right lung base although with residual infiltrates and persistent right upper lobe consolidation. Concern for a right hilar or infrahilar mass, difficult to measure on this type of study. Moderate left pleural effusion without evidence of pulmonary edema. CT abdomen and pelvis " IMPRESSION: Bilateral nonobstructive nephrolithiasis, and small 2-3 mm left UVJ stone with proximal obstruction. No obvious acute bowel abnormality on this limited study" MICROBIOLOGY: Please see below. ASSESSMENT: Mr. Palma is a 63-year-old male the past medical history of A. fib, small cell lung cancer, COPD, hypothyroidism, and KRISTAN who will be admitted for management of abdominal pain, possibly due to nephrolithiasis. PLAN: 1. Abdominal Pain Possibly 2/2 nephrolithiasis Plan: Admit to medical floor/ nothing by mouth with IV fluids & c/w ceftriaxone pending urology eval /morphine when necessary for pain 2. Constipation. Plan: MiraLAX and senna for constipation 3. Respiratory acidosis Likely due to KRISTAN Plan: He may use his own CPAP / wean off Oxygen 4. Weakness Plan: PT eval 5. Atrial fibrillation For unclear reasons he is not on AC or a rate control med 6. COPD Stable Plan resume home meds 7. Stage IV small cell lung cancer Plan follow-up with oncology as scheduled an outpatient basis 8. Hypothyroidism. Elevated TSH is likely due to thyroid replacement Plan: Follow up with PCP to titrate medication will resume current dose for now DVT Px w SCDs Dispo: likely home after more than 2 midnight's stay Vital Signs Vital Signs Date Time Temp Pulse Resp B/P (MAP) Pulse Ox O2 Delivery O2 Flow Rate FiO2 04/28/19 20:42 100.3 04/28/19 19:47 165/70 (101) 04/28/19 19:45 93 16 93 Nasal Cannula 1.0 Laboratory Data Labs 24H Laboratory Tests 2 04/28/19 18:07: Immature Granulocyte % (Auto) 0.7, Neutrophils (%) (Auto) 78.1H, Lymphocytes (%) (Auto) 10.9L, Monocytes (%) (Auto) 9.9H, Eosinophils (%) (Auto) 0.2, Basophils (%) (Auto) 0.2, Neutrophils # (Auto) 3.2, Lymphocytes # (Auto) 0.5L, Monocytes # (Auto) 0.4, Eosinophils # (Auto) 0.0, Basophils # (Auto) 0.0, Nucleated Red Blood Cells % (auto) 0.0, Blood Gas Bicarbonate Standard 25.3, Venous Blood pH 7.342, Venous Blood Partial Pressure CO2 53.9H, Venous Blood Partial Pressure O2 36.7, Venous Blood Total Carbon Dioxide 30.2H, Venous Blood HCO3 28.6H, Venous Blood Oxygen Saturation 66.0, Venous Blood Base Excess 1.8, Anion Gap 8, Glomerular Filtration Rate > 60.0, Lactic Acid Level 2.2*H, Calcium Level 7.7L, Total Bilirubin 0.7, Direct Bilirubin 0.1, Aspartate Amino Transf (AST/SGOT) 40H, Alanine Aminotransferase (ALT/SGPT) 18, Alkaline Phosphatase 58, Ammonia < 10, Total Creatine Kinase 205, Creatine Kinase MB 1.2, Creatine Kinase MB Relati ve Index 0.59, Troponin I < 0.02, Total Protein 7.0, Albumin 2.6L, Albumin/Globulin Ratio 0.59L, Thyroid Stimulating Hormone (TSH) 0.193L 04/28/19 18:25: Urine Color YELLOW, Urine Appearance CLOUDYH, Urine pH 5.0, Urine Specific [place] 1.015, Urine Protein 1+H, Urine Glucose (UA) NEGATIVE, Urine Ketones NEGATIVE, Urine Blood 3+H, Urine Nitrite NEGATIVE, Urine Bilirubin NEGATIVE, Urine Urobilinogen 0.2, Urine Leukocyte Esterase NEGATIVE, Urine WBC (Auto) 4H, Urine RBC (Auto) TNTCH, Urine Hyaline Casts (Auto) 0, Urine Bacteria (Auto) 1+H, Urine Squamous Epithelial Cells 0, Urine Mucus (Auto) SMALL, Urine Sperm (Auto) CBC/BMP Laboratory Tests 04/28/19 18:07 Microbiology Microbiology 04/28/19 Blood Culture, Received Pending Home Medications Scheduled Aspirin (Aspirin EC) 81 Mg Tablet.dr, 81 MG PO DAILY Cetirizine HCl (Cetirizine HCl) 10 Mg Tablet, 10 MG PO DAILY Furosemide (Lasix) 40 Mg Tab, 40 MG PO DAILY Guaifenesin (Mucinex) 600 Mg Tab.er.12h, 600 MG PO Q12H Levothyroxine Sodium (Levoxyl) 88 Mcg Tab, 88 MCG PO DAILY [place]-3 Fatty Acids/Fish Oil ([place]-3 1,000 mg Softgel) 1 Each Capsule, 1 EACH PO DAILY Potassium Chloride (Potassium Chloride) 20 Meq Tab.er.prt, 20 MEQ PO DAILY Spironolactone (Spironolactone) 25 Mg Tab, 25 MG PO DAILY Scheduled PRN Albuterol Sulf (Albuterol Sulfate) 2.5 Mg/3 Ml Nebu, 2.5 MG NEB QID PRN for SHORTNESS OF BREATH Albuterol Sulfate (Ventolin Hfa) 108 Mcg/Act Aer, 2 PUFF INH Q4H PRN for SHORTNESS OF BREATH Allergies Coded Allergies: niacin (Verified Adverse Reaction, Intermediate, FLUSHED X 1.5HOUR, 12/24/18) A-FIB/CHADSVASC A-FIB History Current/History of A-Fib/PAF?: Yes Current PO Anticoag Therapy: Yes Age/Risk Factor Scoring CHADSVASC: CHADSVASC Response (Comments) Value Age Risk Factor Age < 65 years old 0 Gender Risk Factor Male 0 Hx of CHF No 0 Hx of HTN Yes 1 Hx of Stroke/TIA/or VTE No 0 Hx of Diabetes No 0 Hx of Vascular Disease No 0 Total 1 Treatment Treatment ordered: NONE (should f/u with PCP) ORESTES CH MD Apr 28, 2019 20:49
[2019-04-28] MEDS: guaiFENesin ER 600 MG TAB PO SCH (21:00)
[2019-04-28] MEDS ORDERED: OMEG100010 PO (21:16)
[2019-04-28] MEDS ORDERED: POTA20TA6 PO (21:16)
[2019-04-28] MEDS ORDERED: SENNA 8.6 MG TAB (SENOKOT) PO PRN (23:15)
[2019-04-28] MEDS ORDERED: SODIUM CHLORIDE 0.9% 1000ML IV ONE (23:15)
[2019-04-28] MEDS ORDERED: MORPHINE 2 MG/ML 1ML VIAL (J2270) IV PRN (23:15)
[2019-04-28 23:25] VITALS: BP 102/63
[2019-04-28] MEDS: MIRALAX *UNIT DOSE* 17GM PACKET PO SCH (23:25)
[2019-04-29] VITALS (7 sets, daily range): BP systolic 96–123; BP diastolic 57–63
[2019-04-29] MEDS: NS 1,000 ML IV SCH ×2 (00:50→13:43)
[2019-04-29] MEDS ORDERED: ALBUTEROL 90 MCG/ACT 8GM HFA INHALER INH PRN (01:15)
[2019-04-29] MEDS ORDERED: ALBUTEROL SULFATE 2.5 MG/0.5 ML INH NEB SOLN NEB PRN (01:15)
[2019-04-29] MEDS: LEVOTHYROXINE 88MCG TABLET (0.088 MG) PO SCH (05:39)
[2019-04-29 06:39] LABS: HEMATOCRIT 31.9 % (42.0-52.0); MEAN CORPUSCULAR HEMOGLOBIN 28.1 pg (27.0-33.0); MEAN CORPUSCULAR HGB CONC 31.7 g/dl (32.0-36.5); MEAN CORPUSCULAR VOLUME 88.9 fl (80.0-96.0); PLATELET COUNT, AUTOMATED 117 10^3/uL (150-450); RED BLOOD COUNT 3.59 10^6/uL (4.30-6.10); WHITE BLOOD COUNT 3.1 10^3/uL (4.0-10.0)
[2019-04-29 06:47] LABS: HEMOGLOBIN 10.1 g/dl (13.5-17.5)
[2019-04-29 07:02] LABS: ALBUMIN 1.9 GM/DL (3.2-5.2); ALT/SGPT 17 U/L (12-78); BILIRUBIN,TOTAL 0.6 MG/DL (0.2-1.0); BLOOD UREA NITROGEN 18 MG/DL (7-18); CALCIUM LEVEL 7.1 MG/DL (8.8-10.2); CARBON DIOXIDE LEVEL 31 MEQ/L (21-32); CHLORIDE LEVEL 103 MEQ/L (98-107); CREATININE FOR GFR 0.79 MG/DL (0.70-1.30); GLOMERULAR FILTRATION RATE > 60.0 (>49); GLUCOSE, FASTING 88 MG/DL (70-100); MAGNESIUM LEVEL 2.2 MG/DL (1.8-2.4); POTASSIUM SERUM 3.7 MEQ/L (3.5-5.1); SODIUM LEVEL 137 MEQ/L (136-145)
--- NOTE | 2019-04-29 07:26 | ECGEPIP ---
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
[2019-04-29] MEDS ORDERED: PERCOCET 5MG/325MG TAB PO PRN ×2 (08:15)
[2019-04-29] MEDS: MIRALAX *UNIT DOSE* 17GM PACKET PO SCH (09:00)
[2019-04-29] MEDS: CETIRIZINE (ZyrTEC) 10 MG TAB PO SCH (09:22)
[2019-04-29] MEDS: TAMSULOSIN 0.4 MG CAP PO SCH (09:22)
[2019-04-29] MEDS: guaiFENesin ER 600 MG TAB PO SCH ×2 (09:22→21:42)
[2019-04-29] MEDS: FUROSEMIDE 40 MG TAB PO SCH (09:23)
[2019-04-29] MEDS: SPIRONOLACTONE 25 MG TAB PO SCH (09:23)
[2019-04-29] MEDS: POTASSIUM CHLORIDE 10 MEQ SR TABLET PO SCH (09:23)
--- NOTE | 2019-04-29 11:26 | IPNPDOC ---
Subjective Date Seen The patient was seen on 04/29/19. Subjective Chief Complaint/HPI As per patient, he has aches and pains all over his body and multiple leg complaints. Does not offer any complaint of either flank pain but complaining of some cough with some phlegm General: Denies: ROS Unobtainable, Chills, Night Sweats, Fatigue, Malaise, Normal Appetite, Other Symptoms Constitutional: Denies: Chills, Fever, Malaise, Night Sweats, Weakness, Fatigue, Weight Loss, Lethargy, Other Eyes: Denies: Pain, Vision change, Conjunctivae inflammation, Eyelid inflammat ion, Redness, Other Pulmonary: Reports: Cough Cardiovascular: Denies: Chest Pain, Palpitations, Orthopnea, Paroxysmal Noc. Dyspnea, Edema, Lt Headedness, Other Symptoms Gastrointestinal: Denies: Nausea, Vomiting, Abdominal Pain, Diarrhea, Constipation, Melena, Hematochezia, Other Symptoms Musculoskeletal: Denies: Neck Pain, Back Pain, Shoulder Pain, Arm Pain, Hand Pain, Leg Pain, Foot Pain, Joint Pain, Muscle Pain, Spasms, Other Symptoms Neurological: Denies: Weakness, Numbness, Incoordination, Change in speech, Confusion, Seizures, Other Symptoms Objective Physical Examination Eye Exam: Positive: PERRLA, Conjunctiva & lids normal ENT Exam: Positive: Atraumatic, Mucous membr. moist/pink Chest Exam: Positive: Clear to auscultation, Normal air movement Heart Exam: Positive: Rate Normal, Normal S1, Normal S2 Abdomen Exam: Positive: Normal bowel sounds, Soft, Tenderness Extremity Exam: Positive: Normal pulses Skin Exam: Positive: Nl turgor and temperature Neuro Exam: Positive: Strength at 5/5 X4 ext, Sensation Intact Psych Exam: Positive: Mood NL, Oriented x 3 Assessment /Plan Problems (1) Urolithiasis Status: Acute Problem Text: A very small stone about 2-3 mm left UVJ was noted on CAT scan of abdomen and pelvis Continue IV fluids Flomax added Will monitor patient closely PT eval out of bed (2) Atrial flutter, paroxysmal Status: Chronic Problem Text: On no rate control meds are anticoagulation for unknown reason Continue home meds Rate is under control (3) Small cell carcinoma of lung Status: Chronic Problem Text: History of small cell carcinoma of lung Continue pleural drainage as previously Further follow-up with oncology as an outpatient (4) KRISTAN on CPAP Status: Chronic Problem Text: Continue home meds (5) Pneumonia Status: Acute Problem Text: CT chest consistent with; Improved aeration of the right lung base although with residual infiltrates and persistent right upper lobe consolidation. Continue IV Rocephin as per orders . We will repeat chest x-ray 1-2 days CBC, CMP PRO-CALCITONIN in a.m. Plan/VTE VTE Prophylaxis Ordered?: Yes VS, I&O, 24H, Fishbone Vital Signs/I&O Vital Signs Date Time Temp Pulse Resp B/P (MAP) Pulse Ox O2 Delivery O2 Flow Rate FiO2 04/29/19 06:00 97.4 74 20 114/62 (79) 90 NIPPV (BIPAP/CPAP) 04/28/19 22:47 1.0 I&O- Last 24 Hours up to 6 AM 04/29/19 06:00 Intake Total 1450 ml Output Total 0 ml Balance 1450 ml Laboratory Data 24H LABS Laboratory Tests 2 04/28/19 18:07: Immature Granulocyte % (Auto) 0.7, Neutrophils (%) (Auto) 78.1H, Lymphocytes (%) (Auto) 10.9L, Monocytes (%) (Auto) 9.9H, Eosinophils (%) (Auto) 0.2, Basophils (%) (Auto) 0.2, Neutrophils # (Auto) 3.2, Lymphocytes # (Auto) 0.5L, Monocytes # (Auto) 0.4, Eosinophils # (Auto) 0.0, Basophils # (Auto) 0.0, Nucleated Red Blood Cells % (auto) 0.0, Blood Gas Bicarbonate Standard 25.3, Venous Blood pH 7.342, Venous Blood Partial Pressure CO2 53.9H, Venous Blood Partial Pressure O2 36.7, Venous Blood Total Carbon Dioxide 30.2H, Venous Blood HCO3 28.6H, Venous Blood Oxygen Saturation 66.0, Venous Blood Base Excess 1.8, Anion Gap 8, Glomerular Filtration Rate > 60.0, Lactic Acid Level 2.2*H, Calcium Level 7.7L, Total Bilirubin 0.7, Direct Bilirubin 0.1, Aspartate Amino Transf (AST/SGOT) 40H, Alanine Aminotransferase (ALT/SGPT) 18, Alkaline Phosphatase 58, Ammonia < 10, Total Creatine Kinase 205, Creatine Kinase MB 1.2, Creatine Kinase MB Relative Index 0.59, Troponin I < 0.02, Total Protein 7.0, Albumin 2.6L, Albumin/Globulin Ratio 0.59L, Thyroid Stimulating Hormone (TSH) 0.193L 04/28/19 18:25: Urine Color YELLOW, Urine Appearance CLOUDYH, Urine pH 5.0, Urine Specific [place] 1.015, Urine Protein 1+H, Urine Glucose (UA) NEGATIVE, Urine Ketones NEGATIVE, Urine Blood 3+H, Urine Nitrite NEGATIVE, Urine Bilirubin NEGATIVE, Ur ine Urobilinogen 0.2, Urine Leukocyte Esterase NEGATIVE, Urine WBC (Auto) 4H, Urine RBC (Auto) TNTCH, Urine Hyaline Casts (Auto) 0, Urine Bacteria (Auto) 1+H, Urine Squamous Epithelial Cells 0, Urine Mucus (Auto) SMALL, Urine Sperm (Auto) 04/28/19 23:38: Lactic Acid Followup at 4 Hours 1.1 04/29/19 06:19: Nucleated Red Blood Cells % (auto) 0.0, Anion Gap 3L, Glomerular Filtration Rate > 60.0, Calcium Level 7.1L, Total Bilirubin 0.6, Aspartate Amino Transf (AST/SGOT) 26, Alanine Aminotransferase (ALT/SGPT) 17, Alkaline Phosphatase 43L, Total Protein 6.0L, Albumin 1.9#L, Albumin/Globulin Ratio 0.46L, Magnesium Level 2.2 CBC/BMP Laboratory Tests 04/28/19 18:07 04/29/19 06:19 Microbiology Microbiology 04/28/19 Blood Culture, Received Pending JASON ABDULLAHI MD Apr 29, 2019 11:26
[2019-04-29] MEDS: ACETAMINOPHEN TAB 650MG DOSE (2X325MG) PO PRN (12:40)
--- NOTE | 2019-04-29 20:39 | SMCUROLCON ---
Urology Consultation General Date of Consultation 04/29/19 Reason For Consultation This patient is seen for Urolithiasis. History of Present Illness The patient is a 63-year-old male with a past medical history for ureteral calculi. He states that he had a stone extracted by Dr. Banks about 5 years ago. No chart, it states that he had ureteral calculus in 2017. Past Medical History Medical History Atrial fibrillation with tachycardia-bradycardia. COPD Stage IV small cell lung cancer status post chemotherapy and radiation. Hypothyroidism. KRISTAN on CPAP. Iron deficiency anemia. History of nephrolithiasis. Status post umbilical hernia repair. Status post tonsillectomy. Status post partial colectomy Surgical Hstory Previous ureteroscopic laser lithotripsy Family History Significant Family History: Diabetes Social History * Smoker: former Smoker Drugs: prescription drugs Medications Current Medications Current Medications Medications (Trade) Dose Ordered Sig/Ellie Route PRN Reason Start Time Stop Time Status Last Admin Dose Admin Acetaminophen (Tylenol Tab) 650 mg Q4H PRN PO PAIN OR FEVER 04/28/19 21:15 04/29/19 12:40 Albuterol Sulfate (Proventil Neb) 2.5 mg QID PRN NEB SHORTNESS OF BREATH 04/29/19 01:15 Albuterol Sulfate (Proventil, Ventolin Hfa) 2 puff Q4H PRN INH SHORTNESS OF BREATH 04/29/19 01:15 Ceftriaxone Sodium 2 gm/ Dextrose 50 ml @ 100 mls/hr Q24H IV 04/29/19 21:15 Cetirizine HCl (ZyrTEC) 10 mg DAILY PO 04/29/19 09:00 04/29/19 09:22 Furosemide (Lasix) 40 mg DAILY PO 04/29/19 09:00 04/29/19 09:23 Guaifenesin (Mucinex Tab Er) 600 mg Q12H PO 04/28/19 21:00 04/29/19 09:22 Home Med (Med Rec Complete!) ASDIRECTED XX 04/28/19 21:30 04/28/19 21:28 DC Levothyroxine Sodium (Synthroid) 88 mcg DAILY@0600 PO 04/29/19 06:00 Morphine Sulfate (Morphine Sulfate Inj) 1 mg Q2H PRN IV MODERATE PAIN (PS 5-7) 04/28/19 23:15 Oxycodone/ Acetaminophen (Percocet 5mg/ 325mg Tablet) 1 tab Q4HP PRN PO MILD/MODERATE PAIN (PS 1-7) 04/29/19 08:15 Oxycodone/ Acetaminophen (Percocet 5mg/ 325mg Tablet) 2 tab Q4HP PRN PO SEVERE PAIN (PS 8-10) 04/29/19 08:15 Polyethylene Glycol (Miralax) 1 pkt DAILY PO 04/28/19 23:15 Potassium Chloride (Micro-K Extencaps) 20 meq DAILY PO 04/29/19 09:00 04/29/19 09:23 Senna (Senokot) 1 tab BIDP PRN PO CONSTIPATION 04/28/19 23:15 Sodium Chloride 1,000 ml @ 80 mls/hr [id number] IV 04/29/19 00:30 04/29/19 13:43 Spironolactone (Aldactone) 25 mg DAILY PO 04/29/19 09:00 04/29/19 09:23 Tamsulosin HCl (Flomax) 0.4 mg DAILY PO 04/29/19 09:00 04/29/19 09:22 Allergies Allergies: Coded Allergies: niacin (Verified Adverse Reaction, Intermediate, FLUSHED X 1.5HOUR, 12/24/18) Review of Systems General: Denies: ROS Unobtainable, Chills, Night Sweats, Fatigue, Malaise, Normal Appetite, Other Symptoms Constitutional: Denies: Fever, Chills, Sweats, Weakness, Malaise, Other Eyes: Denies: Pain, Vision change, Conjunctivae inflammation, Eyelid inflammation, Redness, Other ENT: Denies: Head Aches, Ear Pain, Dysphagia, Sinus Congestion, Post Nasal Drip, Sore Throat, Epistaxis, Other Symptoms Skin: Denies: Rash, Lesions, Jaundice, Bruising, Itching, Dry, Breakdown, Nail Changes, Other Pulmonary: Reports: Dyspnea; Denies: Cough, Pleuritic Chest Pain, Other Symptoms Cardiovascular: Denies Chest Pain; Reports Palpitations; Denies Orthopnea, Denies Paroxysmal Noc. Dyspnea, Denies Edema, Denies Lt Headedness, Denies Other Symptoms Gastrointestinal: Denies: Nausea, Vomiting, Abdominal Pain, Diarrhea, Constipat ion, Melena, Hematochezia, Other Symptoms Genitourinary: Denies: Dysuria, Frequency, Incontinence, Hematuria, Retention, Other Symptoms Hematologic: Denies: Bruising, Bleeding Excessively, Petecchia, Purpura, Enlarged Lymph Nodes, Other Hematologic Endocrine: Denies: Polydipsia, Polyphagia, Polyuria, Heat Intolerance, Cold Intolerance, Other Endocrine Sx Musculoskeletal: Denies: Neck Pain, Back Pain, Shoulder Pain, Arm Pain, Hand Pain, Leg Pain, Foot Pain, Joint Pain, Muscle Pain, Spasms, Other Symptoms Neurological: Denies: Weakness, Numbness, Incoordination, Change in Speech, Confusion, Seizures, Other Symptoms Psych: Denies: Mood Normal, Anxiety, Depression, Memory Issues, Thoughts of Self Harm, Anger, Thoughts of harming Other, Other Psych Physical Examination General Exam: Cooperative, No Acute Distress; No: Alert, Mild Distress, Moderate Distress, Severe Distress, Other EYE EXAM: PERRLA, Conjunctiva & lids normal; No: EOMI, Sclera icteric, Ptosis, Other Eye Symptoms ENT EXAM: No: Atraumatic, Mucous membr. moist/pink, Pharynx Normal, Tongue Midline, Pharyngeal Edema, Nares Patent, Tympanic Membranes Normal, Ext Auditory Canal Nml, Pinna Normal, Other ENT Neck Exam: Supple, JVD; No: thyromegaly, +2 carotid pulse wo bruit, Lymphadenopathy, Other Chest Exam: Normal air movement; No: Clear to auscultation, Rales, Rhonchi, Wheezing, Diminished, Other Heart Exam: Rate Normal; No: Tachycardic, Bradycardic, Regular Rhythm, Irregular Rhythm, Normal S1, Normal S2, Gallops, Murmurs, Rubs, Other Abdomen Exam: Normal Bowel Sounds; No: BS Hyperactive, BS Hypoactive, Soft, Tenderness, Hepatospenomegaly, Mass, Hernia, Other Male Exam: Normal Prostate; No: Normal Genital Exam, Lesions, Edema, Erythema, Tenderness, Discharge, Mass, Hernia, Normal Sphincter Tone Extremity Exam: No: Clubbing, Cyanosis, Edema, Normal Pulses, Tenderness, Swelling, Other Skin Exam: Nl turgor and temperature; No: Rash, Breakdown, Lesion, Pruritus, Other skin issue Neuro Exam: No: Normal Gait, Normal Speech, Strength at 5/5 X4 ext, Normal Tone, Sensation Intact, Cranial Nerves 3-12 NL, Reflexes 2+, Other Psych Exam: No: Mental status NL, Mood NL, Anxiety, Memory Intact, Oriented x 3, Other Vital Signs/I&O Vital Signs Date Time Temp Pulse Resp B/P (MAP) Pulse Ox O2 Delivery O2 Flow Rate FiO2 04/29/19 18:30 123 113/63 (80) 04/29/19 14:00 99.8 17 91 Room Air 04/28/19 22:47 1.0 I&O- Last 24 Hours up to 6 AM 04/29/19 06:00 Intake Total 1450 ml Output Total 0 ml Balance 1450 ml Laboratory Data 24H Labs Laboratory Tests 2 04/28/19 23:38: Lactic Acid Followup at 4 Hours 1.1 04/29/19 06:19: Nucleated Red Blood Cells % (auto) 0.0, Anion Gap 3L, Glomerular Filtration Rate > 60.0, Calcium Level 7.1L, Magnesium Level 2.2, Total Bilirubin 0.6, Aspartate Amino Transf (AST/SGOT) 26, Alanine Aminotransferase (ALT/SGPT) 17, Alkaline Phosphatase 43L, Total Protein 6.0L, Albumin 1.9#L, Albumin/Globulin Ratio 0.46L CBC/BMP Laboratory Tests 04/29/19 06:19 Microbiology Microbiology 04/29/19 Gram Stain - Final, Resulted 04/29/19 Sputum Culture, Resulted Pending 04/28/19 Blood Culture - Preliminary, Resulted No growth after 24 hours . All specim... Assessment I reviewed the patient's CT scan and has it 2 or 3 mm calculus in distal left ureter with no hydronephrosis present. Since the patient denies any pain or discomfort. I think it reasonable to give the patient hydration and see if he can pass the stone spontaneously. Plan Hydrate to help assist in stone passage. KUB in 2 to 3 weeks to see if stone is passed. If the patient should have any left flank pain that could be attributed to the stone further evaluation, treatment, perhaps ureteroscopic stone extraction to be performed at that time. Time Spent on Consult: Time Spent / Consult (Minutes): 70 AGUSTIN MOORE MD Apr 29, 2019 20:39
[2019-04-29] MEDS: cefTRIAXone SOD 2 GM in D5W MINI-BAG PLUS 50 ML IV SCH (21:42)
[2019-04-30] VITALS (10 sets, daily range): BP systolic 96–118; BP diastolic 58–68; O2SAT 92
[2019-04-30] MEDS: NS 1,000 ML IV SCH ×2 (01:25→14:10)
[2019-04-30] MEDS ORDERED: METOPROLOL TART 12.5 MG PER 1/2 TAB PO ONE (01:30)
[2019-04-30] MEDS ORDERED: RAMELTEON 8 MG TAB (ROZEREM) PO ONE (04:00)
[2019-04-30] MEDS: ACETAMINOPHEN TAB 650MG DOSE (2X325MG) PO PRN (05:38)
[2019-04-30] MEDS: LEVOTHYROXINE 88MCG TABLET (0.088 MG) PO SCH (05:38)
[2019-04-30 06:24] LABS: BASO % 0.3 % (0.0-1.0); HEMOGLOBIN 9.9 g/dl (13.5-17.5); LYMPH # 0.3 10^3/uL (1.5-5.0); LYMPH % 9.2 % (24.0-44.0); MEAN CORPUSCULAR HEMOGLOBIN 28.2 pg (27.0-33.0); MEAN CORPUSCULAR HGB CONC 31.9 g/dl (32.0-36.5); MEAN CORPUSCULAR VOLUME 88.3 fl (80.0-96.0); MONO # 0.3 10^3/uL (0.0-0.8); MONO % 9.5 % (0.0-5.0); NEUTROPHILS # 2.6 10^3/uL (1.5-8.5); NEUTROPHILS % 80.7 % (36.0-66.0); RED BLOOD COUNT 3.51 10^6/uL (4.30-6.10); WHITE BLOOD COUNT 3.3 10^3/uL (4.0-10.0)
[2019-04-30 06:49] LABS: ALBUMIN 1.7 GM/DL (3.2-5.2); ALT/SGPT 17 U/L (12-78); BILIRUBIN,TOTAL 0.3 MG/DL (0.2-1.0); BLOOD UREA NITROGEN 15 MG/DL (7-18); CALCIUM LEVEL 6.8 MG/DL (8.8-10.2); CARBON DIOXIDE LEVEL 29 MEQ/L (21-32); CHLORIDE LEVEL 102 MEQ/L (98-107); CREATININE FOR GFR 0.76 MG/DL (0.70-1.30); GLOMERULAR FILTRATION RATE > 60.0 (>49); GLUCOSE, FASTING 97 MG/DL (70-100); POTASSIUM SERUM 3.4 MEQ/L (3.5-5.1); SODIUM LEVEL 134 MEQ/L (136-145); TOTAL PROTEIN 5.6 GM/DL (6.4-8.2)
[2019-04-30] MEDS: CETIRIZINE (ZyrTEC) 10 MG TAB PO SCH (08:46)
[2019-04-30] MEDS: guaiFENesin ER 600 MG TAB PO SCH ×2 (08:46→21:00)
[2019-04-30] MEDS: METOPROLOL TART 12.5 MG PER 1/2 TAB PO SCH (08:46)
[2019-04-30] MEDS: POTASSIUM CHLORIDE 10 MEQ SR TABLET PO SCH (08:47)
[2019-04-30] MEDS: TAMSULOSIN 0.4 MG CAP PO SCH (08:58)
[2019-04-30] MEDS: FUROSEMIDE 40 MG TAB PO SCH (08:58)
[2019-04-30] MEDS: SPIRONOLACTONE 25 MG TAB PO SCH (08:58)
[2019-04-30] MEDS: MIRALAX *UNIT DOSE* 17GM PACKET PO SCH (08:58)
--- NOTE | 2019-04-30 11:17 | IPNPDOC ---
Subjective Date Seen The patient was seen on 04/30/19. Subjective Chief Complaint/HPI As per patient, he has not feeling good. Aches and pains all over his body, not a good appetite General: Reports: Other Symptoms (not sleeping good) Constitutional: Denies: Chills, Fever, Malaise, Night Sweats, Weakness, Fatigue, Weight Loss, Lethargy, Other Eyes: Denies: Pain, Vision change, Conjunctivae inflammation, Eyelid inflammation, Redness, Other Skin: Denies: Rash, Lesions, Jaundice, Bruising, Itching, Dry, Breakdown, Nail Changes, Other Pulmonary: Denies: Dyspnea, Cough, Pleuritic Chest Pain, Other Symptoms Cardiovascular: Denies: Chest Pain, Palpitations, Orthopnea, Paroxysmal Noc. Dyspnea, Edema, Lt Headedness, Other Symptoms Gastrointestinal: Denies: Nausea, Vomiting, Abdominal Pain, Diarrhea, Constipation, Melena, Hematochezia, Other Symptoms Musculoskeletal: Denies: Neck Pain, Back Pain, Shoulder Pain, Arm Pain, Hand Pain, Leg Pain, Foot Pain, Joint Pain, Muscle Pain, Spasms, Other Symptoms Neurological: Denies: Weakness, Numbness, Incoordination, Change in speech, Confusion, Seizures, Other Symptoms Objective Physical Examination Eye Exam: Positive: PERRLA, Conjunctiva & lids normal ENT Exam: Negative: Atraumatic, Mucous membr. moist/pink, Pharynx Normal, Tongue Midline, Pharyngeal Edema, Nares Patent, Tympanic Membranes Normal, Ext Auditory Canal Nml, Pinna Normal, Other ENT Chest Exam: Positive: Clear to auscultation, Normal air movement Heart Exam: Positive: Rate Normal, Normal S1, Normal S2 Abdomen Exam: Positive: Normal bowel sounds, Soft, Tenderness Extremity Exam: Positive: Normal pulses Skin Exam: Positive: Nl turgor and temperature Neuro Exam: Positive: Strength at 5/5 X4 ext, Sensation Intact Psych Exam: Positive: Mood NL, Oriented x 3 Assessment /Plan Problems (1) Urolithiasis Status: Acute Problem Text: A very small stone about 2-3 mm left UVJ was noted on CAT scan of abdomen and pelvis Patient does not offer any complaints of abdominal pain or urinary complaints, most likely passed the stone DC IV fluids but continue Flomax Will get repeat KUB to acertain location of stone PT eval out of bed (2) Atrial flutter, paroxysmal Status: Chronic Problem Text: On no rate control meds are anticoagulation for unknown reason Continue home meds Rate is under control (3) Small cell carcinoma of lung Status: Chronic Problem Text: History of small cell carcinoma of lung CT chest shows possible hilar mass. Will discuss with and she is presently at about Continue pleural drainage as previously Further follow-up with oncology as an outpatient (4) KRISTAN on CPAP Status: Chronic Problem Text: Continue home meds (5) Pneumonia Status: Acute Problem Text: CT chest consistent with; Improved aeration of the right lung base although with residual infiltrates and persistent right upper lobe consolidation. Continue IV Rocephin as per orders We will repeat chest x-ray 1-2 days CBC, CMP PRO-CALCITONIN in a.m. Plan/VTE VTE Prophylaxis Ordered?: Yes VS, I&O, 24H, Fishbone Vital Signs/I&O Vital Signs Date Time Temp Pulse Resp B/P (MAP) Pulse Ox O2 Delivery O2 Flow Rate FiO2 04/30/19 08:46 84 80/48 04/30/19 06:00 98.2 22 91 Nasal Cannula 2.0 I&O- Last 24 Hours up to 6 AM 04/30/19 06:00 Intake Total 2470 ml Output Total 1470 ml Balance 1000 ml Laboratory Data 24H LABS Laboratory Tests 2 04/30/19 05:17: Immature Granulocyte % (Auto) 0.3, Neutrophils (%) (Auto) 80.7H, Lymphocytes (%) (Auto) 9.2L, Monocytes (%) (Auto) 9.5H, Eosinophils (%) (Auto) 0.0, Basophils (%) (Auto) 0.3, Neutrophils # (Auto) 2.6, Lymphocytes # (Auto) 0.3L, Monocytes # (Auto) 0.3, Eosinophils # (Auto) 0.0, Basophils # (Auto) 0.0, Nucleated Red Blood Cells % (auto) 0.0, Anion Gap 3L, Glomerular Filtration Rate > 60.0, Calcium Level 6.8L, Total Bilirubin 0.3, Aspartate Amino Transf (AST/SGOT) 33, Alanine Aminotransferase (ALT/SGPT) 17, Alkaline Phosphatase 40L, Total Protein 5.6L, Albumin 1.7L, Albumin/Globulin Ratio 0.44L CBC/BMP Laboratory Tests 04/30/19 05:17 Microbiology Microbiology 04/29/19 Gram Stain - Final, Resulted 04/29/19 Sputum Culture, Resulted Pending 04/28/19 Blood Culture - Preliminary, Resulted No growth after 24 hours . All specim... JASON ABDULLAHI MD Apr 30, 2019 11:17
[2019-04-30] MEDS ORDERED: POTASSIUM CHLORIDE 10 MEQ SR TABLET PO ONE (12:00)
[2019-04-30 12:04] LABS: HEMATOCRIT 32.8 % (42.0-52.0); HEMOGLOBIN 10.2 g/dl (13.5-17.5); MEAN CORPUSCULAR HEMOGLOBIN 28.1 pg (27.0-33.0); MEAN CORPUSCULAR HGB CONC 31.1 g/dl (32.0-36.5); MEAN CORPUSCULAR VOLUME 90.4 fl (80.0-96.0); PLATELET COUNT, AUTOMATED 90 10^3/uL (150-450); RED BLOOD COUNT 3.63 10^6/uL (4.30-6.10); WHITE BLOOD COUNT 3.3 10^3/uL (4.0-10.0)
--- NOTE | 2019-04-30 14:19 | REP ---
KUB: Two views. History: Renal calculus. Comparison CT study on April 28, 2019. Findings: There are anastomotic sutures in the right upper quadrant. There is moderate to marked dilation of a loop of colon obliquely across the mid abdomen. This appears to be a sigmoid colon loop and this raises a question of sigmoid volvulus. This loop of colon is dilated to a diameter of up to 13.5 cm. A PleurX catheter is noted in the pleural space on the left. There is a paucity of distal colonic gas. There is some gas in the hepatic flexure region. Impression: Moderately to markedly dilated sigmoid colon loop, 13.5 cm across. Only a small quantity of gas in the rectum, question sigmoid volvulus versus ileus. Electronically Signed by Justus Chambers MD 04/30/2019 06:38 P
[2019-04-30] MEDS: RAMELTEON 8 MG TAB (ROZEREM) PO SCH (21:00)
[2019-04-30 21:30] LABS: ABG BASE EXCESS -1.3 (-2.0-2.0); ABG HCO3 26.5 MEQ/L (22.0-26.0); ABG O2 SATURATION 94.7 % (95.0-99.0); ABG PARTIAL PRESSURE CO2 59.3 mmHg (35.0-45.0); ABG PARTIAL PRESSURE O2 77.5 mmHg (75.0-100.0); ABG STANDARD HCO3 23.3 MEQ/L (22.0-26.0); ABG TOTAL CO2 28.3 MEQ/L (23.0-31.0); ABG pH (ARTERIAL) 7.268 UNITS (7.350-7.450)
[2019-04-30] MEDS ORDERED: METOPROLOL 5 MG/5 ML VIAL IV STA (21:39)
[2019-04-30] MEDS: cefTRIAXone SOD 2 GM in D5W MINI-BAG PLUS 50 ML IV SCH (21:52)
[2019-05-01] VITALS (21 sets, daily range): BP systolic 82–114; BP diastolic 52–66; O2SAT 86–98
[2019-05-01 00:48] LABS: ABG pH (ARTERIAL) 7.271 UNITS (7.350-7.450)
[2019-05-01 00:49] LABS: ABG BASE EXCESS -2.3 (-2.0-2.0); ABG HCO3 25.2 MEQ/L (22.0-26.0); ABG O2 SATURATION 94.4 % (95.0-99.0); ABG PARTIAL PRESSURE O2 73.4 mmHg (75.0-100.0); ABG STANDARD HCO3 22.5 MEQ/L (22.0-26.0); ABG TOTAL CO2 26.9 MEQ/L (23.0-31.0)
[2019-05-01] MEDS ORDERED: NS 1,000 ML IV ONE (01:00)
[2019-05-01] MEDS: NS 1,000 ML IV SCH ×2 (02:34→15:55)
[2019-05-01] MEDS: LEVOTHYROXINE 88MCG TABLET (0.088 MG) PO SCH (05:41)
[2019-05-01 06:15] LABS: BASO % 0.2 % (0.0-1.0); HEMATOCRIT 32.4 % (42.0-52.0); LYMPH # 0.3 10^3/uL (1.5-5.0); MEAN CORPUSCULAR HGB CONC 30.9 g/dl (32.0-36.5); MEAN CORPUSCULAR VOLUME 90.8 fl (80.0-96.0); MONO # 0.3 10^3/uL (0.0-0.8); MONO % 7.6 % (0.0-5.0); NEUTROPHILS # 3.8 10^3/uL (1.5-8.5); NEUTROPHILS % 85.3 % (36.0-66.0); PLATELET COUNT, AUTOMATED 113 10^3/uL (150-450); RED BLOOD COUNT 3.57 10^6/uL (4.30-6.10); WHITE BLOOD COUNT 4.5 10^3/uL (4.0-10.0)
[2019-05-01 06:44] LABS: ALBUMIN 1.7 GM/DL (3.2-5.2); ALT/SGPT 19 U/L (12-78); BILIRUBIN,TOTAL 0.3 MG/DL (0.2-1.0); BLOOD UREA NITROGEN 22 MG/DL (7-18); CALCIUM LEVEL 6.8 MG/DL (8.8-10.2); CARBON DIOXIDE LEVEL 26 MEQ/L (21-32); CHLORIDE LEVEL 106 MEQ/L (98-107); CREATININE FOR GFR 1.04 MG/DL (0.70-1.30); GLOMERULAR FILTRATION RATE > 60.0 (>49); GLUCOSE, FASTING 73 MG/DL (70-100); MAGNESIUM LEVEL 2.1 MG/DL (1.8-2.4); POTASSIUM SERUM 4.3 MEQ/L (3.5-5.1); SODIUM LEVEL 138 MEQ/L (136-145); TOTAL PROTEIN 5.2 GM/DL (6.4-8.2)
[2019-05-01] MEDS: METOPROLOL TART 12.5 MG PER 1/2 TAB PO SCH (08:15)
[2019-05-01] MEDS: MIRALAX *UNIT DOSE* 17GM PACKET PO SCH (09:10)
[2019-05-01] MEDS: TAMSULOSIN 0.4 MG CAP PO SCH (09:11)
[2019-05-01] MEDS: FUROSEMIDE 40 MG TAB PO SCH (09:11)
[2019-05-01] MEDS: SPIRONOLACTONE 25 MG TAB PO SCH (09:11)
[2019-05-01] MEDS: POTASSIUM CHLORIDE 10 MEQ SR TABLET PO SCH (09:11)
[2019-05-01] MEDS: guaiFENesin ER 600 MG TAB PO SCH ×2 (09:11→21:00)
[2019-05-01] MEDS: CETIRIZINE (ZyrTEC) 10 MG TAB PO SCH (09:11)
--- NOTE | 2019-05-01 09:23 | IPNPDOC ---
Subjective Date Seen The patient was seen on 05/01/19. Subjective Chief Complaint/HPI Patient is feeling much better today. Offers no new complaints. No abdominal pain General: Denies: ROS Unobtainable, Chills, Night Sweats, Fatigue, Malaise, Normal Appetite, Other Symptoms Constitutional: Denies: Chills, Fever, Malaise, Night Sweats, Weakness, Fatigue, Weight Loss, Lethargy, Other Pulmonary: Denies: Dyspnea, Cough, Pleuritic Chest Pain, Other Symptoms Cardiovascular: Denies: Chest Pain, Palpitations, Orthopnea, Paroxysmal Noc. Dyspnea, Edema, Lt Headedness, Other Symptoms Musculoskeletal: Denies: Neck Pain, Back Pain, Shoulder Pain, Arm Pain, Hand Pain, Leg Pain, Foot Pain, Joint Pain, Muscle Pain, Spasms, Other Symptoms Neurological: Denies: Weakness, Numbness, Incoordination, Change in speech, Confusion, Seizures, Other Symptoms Objective Physical Examination Eye Exam: Positive: PERRLA, Conjunctiva & lids normal ENT Exam: Negative: Atraumatic, Mucous membr. moist/pink, Pharynx Normal, Tongue Midline, Pharyngeal Edema, Nares Patent, Tympanic Membranes Normal, Ext Auditory Canal Nml, Pinna Normal, Other ENT Chest Exam: Positive: Clear to auscultation, Normal air movement Heart Exam: Positive: Rate Normal, Normal S1, Normal S2 Abdomen Exam: Positive: Normal bowel sounds, Soft, Tenderness Extremity Exam: Positive: Normal pulses Skin Exam: Positive: Nl turgor and temperature Neuro Exam: Positive: Strength at 5/5 X4 ext, Sensation Intact Psych Exam: Positive: Mood NL, Oriented x 3 Assessment /Plan Problems (1) Urolithiasis Status: Acute Problem Text: A very small stone about 2-3 mm left UVJ was noted on CAT scan of abdomen and pelvis Patient does not offer any complaints of abdominal pain or urinary complaints, most likely passed the stone DC IV fluids but continue Flomax Encourage oral hydration Urology consult appreciated Further workup as an outpatient with Dr. Bernabe bell out of bed (2) Atrial flutter, paroxysmal Status: Chronic Problem Text: On no rate control meds are anticoagulation for unknown reason Continue home meds Rate is under control (3) Small cell carcinoma of lung Status: Chronic Problem Text: History of small cell carcinoma of lung CT chest shows possible hilar mass. Will discuss with and she is presently at about Continue pleural drainage as previously Further follow-up with oncology as an outpatient (4) KRISTAN on CPAP Status: Chronic Problem Text: Continue home meds (5) Pneumonia Status: Acute Problem Text: CT chest consistent with; Improved aeration of the right lung base although with residual infiltrates and persistent right upper lobe consolidation. Continue IV Rocephin as per orders We will repeat chest x-ray 1-2 days CBC, CMP PRO-CALCITONIN in a.m. Plan/VTE VTE Prophylaxis Ordered?: Yes VS, I&O, 24H, Fishbone Vital Signs/I&O Vital Signs Date Time Temp Pulse Resp B/P (MAP) Pulse Ox O2 Delivery O2 Flow Rate FiO2 05/01/19 08:15 82/54 05/01/19 08:00 97.0 114 18 95 Nasal Cannula 2.0 I&O- Last 24 Hours up to 6 AM 05/01/19 06:00 Intake Total 1596 ml Output Total 405 ml Balance 1191 ml Laboratory Data 24H LABS Laboratory Tests 2 04/30/19 11:18: Nucleated Red Blood Cells % (auto) 0.0, Immature Platelet Fraction 3.6 04/30/19 21:17: Blood Gas Bicarbonate Standard 23.3, Arterial Blood pH 7.268L, Arterial Blood Partial Pressure CO2 59.3H, Arterial Blood Partial Pressure O2 77.5, Arterial Blood Total CO2 28.3, Arterial Blood HCO3 26.5H, Arterial Blood Base Excess - 1.3, Arterial Blood Oxygen Saturation 94.7L 05/01/19 00:43: Blood Gas Bicarbonate Standard 22.5, Arterial Blood pH 7.271L, Arterial Blood Partial Pressure CO2 56.0H, Arterial Blood Partial Pressure O2 73.4L, Arterial Blood Total CO2 26.9, Arterial Blood HCO3 25.2, Arterial Blood Base Excess - 2.3L, Arterial Blood Oxygen Saturation 94.4L 05/01/19 05:22: Nucleated Red Blood Cells % (auto) 0.0, Immature Granulocyte % (Auto) 0.9, Neutrophils (%) (Auto) 85.3H, Lymphocytes (%) (Auto) 6.0L, Monocytes (%) (Auto) 7.6H, Eosinophils (%) (Auto) 0.0, Basophils (%) (Auto) 0.2, Neutrophils # (Auto) 3.8, Lymphocytes # (Auto) 0.3L, Monocytes # (Auto) 0.3, Eosinophils # (Auto) 0.0, Basophils # (Auto) 0.0, Anion Gap 6L, Glomerular Filtration Rate > 60.0, Calcium Level 6.8L, Magnesium Level 2.1, Total Bilirubin 0.3, Aspartate Amino Transf (AST/SGOT) 33, Alanine Aminotransferase (ALT/SGPT) 19, Alkaline Phosphatase 51, Total Protein 5.2L, Albumin 1.7L, Albumin/Globulin Ratio 0.49L CBC/BMP Laboratory Tests 04/30/19 11:18 05/01/19 05:22 Microbiology Microbiology 04/29/19 Gram Stain - Final, Complete 04/29/19 Sputum Culture - Final, Complete Yeast Like Organism 04/28/19 Blood Culture - Preliminary, Resulted No Growth after 48 hours. All Specime... JASON ABDULLAHI MD May 01, 2019 09:23
[2019-05-01] MEDS ORDERED: ISOVUE-370 76% 100ML VIAL (Q9967) As Ordered ONE (10:41)
--- NOTE | 2019-05-01 11:42 | REP ---
CT brain with IV contrast: History: History of brain metastasis. Altered mentation. Comparison head CT study April 28, 2019 and September 09, 2018. CT contrast dose: 75 ml of intravenous Isovue 370. CT findings: Digital preliminary golf instructor radiograph is unremarkable. On bone window settings there is vascular calcification in the distal carotid and vertebral arteries. No bony destructive lesion is appreciated. Visualized paranasal sinuses are clear. On soft tissue windows settings, there is generalized atrophy. Enhancement is seen in normal vascular structures. No abnormal contrast enhancement is seen. There is no evidence of intracranial mass lesion. No extra-axial fluid collection is seen. No midline shift is observed. [place]zon white differentiation pattern is intact. Impression: No mass or abnormal intracranial enhancement seen. No infarct or hemorrhage noted. Diffuse atrophy and vascular calcification again noted. Electronically Signed by Justus Chambers MD 05/01/2019 11:33 A
[2019-05-01] MEDS: RAMELTEON 8 MG TAB (ROZEREM) PO SCH (21:00)
[2019-05-01] MEDS: cefTRIAXone SOD 2 GM in D5W MINI-BAG PLUS 50 ML IV SCH (22:11)
[2019-05-01] MEDS ORDERED: METOPROLOL TART 12.5 MG PER 1/2 TAB PO SCH (23:00)
[2019-05-01] MEDS ORDERED: METOPROLOL 5 MG/5 ML VIAL IV STA (23:29)
[2019-05-02] VITALS (35 sets, daily range): BP systolic 68–104; BP diastolic 35–62; O2SAT 87–100
[2019-05-02] MEDS ORDERED: NS 500 ML IV ONE (02:00)
[2019-05-02] MEDS ORDERED: FUROSEMIDE 40 MG/4 ML VIAL (J1940) IV ONE (05:00)
--- NOTE | 2019-05-02 05:34 | REPVR ---
PROCEDURE INFORMATION: Exam: XR Chest, 1 View Exam date and time: 05/02/2019 5:20 AM Clinical history: 63 years old, male; Other: SOB TECHNIQUE: Imaging protocol: XR of the chest Views: 1 view. COMPARISON: CR PORTABLE CHEST X-RAY 04/28/2019 6:25 PM FINDINGS: Tubes, catheters and devices: A pacemaker from the left is unchanged. Lungs: Decreased aeration of the right lung since the prior study consistent with right lung base consolidation or atelectasis. Pleural space: A right pleural effusion in addition is not excluded. Question of small left pleural effusion which is slightly increased. Heart/Mediastinum: The heart and mediastinum are unchanged. Bones/joints: Unremarkable. IMPRESSION: 1. Decreased aeration of the right lung since 04/28/2019 and likely reflects increased right base atelectasis or consolidation. Increased pleural effusion is not excluded. 2. Slightly increased haziness in the lateral left base suggesting slightly increased left pleural effusion. 3. Otherwise stable chest. Electronically signed by: Shayan Dunaway On 05/02/2019 05:34:06 AM
[2019-05-02 05:35] LABS: ABG BASE EXCESS -5.8 (-2.0-2.0); ABG HCO3 20.9 MEQ/L (22.0-26.0); ABG O2 SATURATION 93.2 % (95.0-99.0); ABG PARTIAL PRESSURE CO2 46.1 mmHg (35.0-45.0); ABG PARTIAL PRESSURE O2 69.4 mmHg (75.0-100.0); ABG STANDARD HCO3 19.6 MEQ/L (22.0-26.0); ABG TOTAL CO2 22.3 MEQ/L (23.0-31.0); ABG pH (ARTERIAL) 7.274 UNITS (7.350-7.450)
[2019-05-02 06:22] LABS: HEMATOCRIT 30.4 % (42.0-52.0); HEMOGLOBIN 9.5 g/dl (13.5-17.5); MEAN CORPUSCULAR HEMOGLOBIN 28.2 pg (27.0-33.0); MEAN CORPUSCULAR HGB CONC 31.3 g/dl (32.0-36.5); MEAN CORPUSCULAR VOLUME 90.2 fl (80.0-96.0); PLATELET COUNT, AUTOMATED 102 10^3/uL (150-450); RED BLOOD COUNT 3.37 10^6/uL (4.30-6.10); WHITE BLOOD COUNT 5.4 10^3/uL (4.0-10.0)
[2019-05-02 06:40] LABS: ALBUMIN 1.7 GM/DL (3.2-5.2); BILIRUBIN,TOTAL 0.3 MG/DL (0.2-1.0); CREATININE FOR GFR 1.36 MG/DL (0.70-1.30); GLOMERULAR FILTRATION RATE 56.2 (>49); POTASSIUM SERUM 4.2 MEQ/L (3.5-5.1); TOTAL PROTEIN 6.2 GM/DL (6.4-8.2)
[2019-05-02] MEDS: LEVOTHYROXINE 88MCG TABLET (0.088 MG) PO SCH (06:42)
[2019-05-02 06:48] LABS: ATYPICAL LYMPH 2 % (0-5); BASOPHILS 1 % (0-1); LYMPHOCYTES 2 % (16-44); MONOCYTES 7 % (0-5); NEUTROPHILS 82 % (28-66)
[2019-05-02 06:49] LABS: ANISOCYTOSIS 1+; POIKILOCYTOSIS 1+
[2019-05-02 06:50] LABS: PLATELET ESTIMATE DECREASED (NORMAL); POLYCHROMASIA 1+
[2019-05-02] MEDS: MIRALAX *UNIT DOSE* 17GM PACKET PO SCH (08:46)
[2019-05-02] MEDS: POTASSIUM CHLORIDE 10 MEQ SR TABLET PO SCH (08:47)
[2019-05-02] MEDS: CETIRIZINE (ZyrTEC) 10 MG TAB PO SCH (08:47)
[2019-05-02] MEDS: guaiFENesin ER 600 MG TAB PO SCH ×2 (08:47→21:00)
[2019-05-02] MEDS ORDERED: METOPROLOL TART 12.5 MG PER 1/2 TAB PO SCH (09:00)
[2019-05-02] MEDS ORDERED: NS 1,000 ML IV SCH (09:15)
[2019-05-02 09:28] LABS: MAGNESIUM LEVEL 2.2 MG/DL (1.8-2.4)
--- NOTE | 2019-05-02 09:48 | IPNPDOC ---
Subjective Date Seen The patient was seen on 05/02/19. Subjective Chief Complaint/HPI Patient complaining of abdominal pain since last night. No nausea, vomiting. Patient did receive a bolus of IV fluids as he was hypotensive. His baseline systolic is 90 as per his , multiple meds have been put on hold General: Denies: ROS Unobtainable, Chills, Night Sweats, Fatigue, Malaise, Normal Appetite, Other Symptoms Constitutional: Denies: Chills, Fever, Malaise, Night Sweats, Weakness, Fatigue, Weight Loss, Lethargy, Other Skin: Denies: Rash, Lesions, Jaundice, Bruising, Itching, Dry, Breakdown, Nail Changes, Other Pulmonary: Denies: Dyspnea, Cough, Pleuritic Chest Pain, Other Symptoms Cardiovascular: Denies: Chest Pain, Palpitations, Orthopnea, Paroxysmal Noc. Dyspnea, Edema, Lt Headedness, Other Symptoms Gastrointestinal: Reports: Abdominal Pain Endocrine: Denies: Polydipsia, Polyphagia, Polyuria, Heat Intolerance, Cold Intolerance, Other Endocrine Sx Musculoskeletal: Denies: Neck Pain, Back Pain, Shoulder Pain, Arm Pain, Hand Pain, Leg Pain, Foot Pain, Joint Pain, Muscle Pain, Spasms, Other Symptoms Neurological: Denies: Weakness, Numbness, Incoordination, Change in speech, Confusion, Seizures, Other Symptoms Objective Physical Examination Eye Exam: Positive: PERRLA, Conjunctiva & lids normal ENT Exam: Negative: Atraumatic, Mucous membr. moist/pink, Pharynx Normal, Tongue Midline, Pharyngeal Edema, Nares Patent, Tympanic Membranes Normal, Ext Auditory Canal Nml, Pinna Normal, Other ENT Chest Exam: Positive: Clear to auscultation, Normal air movement Heart Exam: Positive: Rate Normal, Normal S1, Normal S2 Abdomen Exam: Positive: Normal bowel sounds, Soft, Tenderness Extremity Exam: Positive: Normal pulses Skin Exam: Positive: Nl turgor and temperature Neuro Exam: Positive: Strength at 5/5 X4 ext, Sensation Intact Psych Exam: Positive: Mood NL, Oriented x 3 Assessment /Plan Problems (1) Urolithiasis Status: Acute Problem Text: A very small stone about 2-3 mm left UVJ was noted on CAT scan of abdomen and pelvis Patient does not offer any complaints of abdominal pain or urinary complaints, most likely passed the stone Flomax put on hold secondary to hypertension Encourage oral hydration Urology consult appreciated Further workup as an outpatient with Dr. Kidd PT arabella out of bed (2) Atrial flutter, paroxysmal Status: Chronic Problem Text: On no rate control meds are anticoagulation for unknown reason Continue home meds Rate is under control (3) Small cell carcinoma of lung Status: Chronic Problem Text: History of small cell carcinoma of lung CT chest shows possible hilar mass. Will discuss with and she is presently at about Continue pleural drainage as previously Further follow-up with oncology as an outpatient (4) KRISTAN on CPAP Status: Chronic Problem Text: Continue home meds (5) Pneumonia Status: Acute Problem Text: CT chest consistent with; Improved aeration of the right lung base although with residual infiltrates and persistent right upper lobe consolidation. Continue IV Rocephin as per orders We will repeat chest x-ray 1-2 days CBC, CMP PRO-CALCITONIN in a.m. (6) Abdominal pain Status: Acute Problem Text: Patient complaining of abdominal pain since last night. On examination he does have a tenderness at the lower abdomen on deep palpation, no nausea, vomiting, no fever Start gentle hydration with normal saline at 50 mL per hr Will get CT of the abdomen and pelvis with by mouth and IV contrast Hold all by mouth meds Nothing by mouth except ice chips Plan/VTE VTE Prophylaxis Ordered?: Yes VS, I&O, 24H, Fishbone Vital Signs/I&O Vital Signs Date Time Temp Pulse Resp B/P (MAP) Pulse Ox O2 Delivery O2 Flow Rate FiO2 05/02/19 09:00 98 2.0 05/02/19 08:00 97.5 122 20 95/51 (66) Nasal Cannula I&O- Last 24 Hours up to 6 AM 05/02/19 06:00 Intake Total 2550 ml Output Total 1080 ml Balance 1470 ml Laboratory Data 24H LABS Laboratory Tests 2 05/02/19 05:16: Blood Gas Bicarbonate Standard 19.6L, Arterial Blood pH 7.274L, Arterial Blood Partial Pressure CO2 46.1H, Arterial Blood Partial Pressure O2 69.4L, Arterial Blood Total CO2 22.3L, Arterial Blood HCO3 20.9L, Arterial Blood Base Excess - 5.8L, Arterial Blood Oxygen Saturation 93.2L 05/02/19 06:01: Lymphocytes # (Auto) , Nucleated Red Blood Cells % (auto) 0.0, Neutrophils 82H, Band Neutrophils 6, Lymphocytes (Manual) 2L, Monocytes (Manual) 7H, Basophils (Manual) 1, Atypical Lymphocytes 2, Polychromasia 1+, Poikilocytosis 1+, Anisocytosis 1+, Platelet Estimate DECREASED 05/02/19 06:02: Anion Gap 8, Glomerular Filtration Rate 56.2, Calcium Level 7.0L, Magnesium Level 2.2, Total Bilirubin 0.3, Aspartate Amino Transf (AST/SGOT) 41H, Alanine Aminotransferase (ALT/SGPT) 21, Alkaline Phosphatase 55, Total Protein 6.2L, Albumin 1.7L, Albumin/Globulin Ratio 0.38L, Lipase 66L CBC/BMP Laboratory Tests 05/02/19 06:01 05/02/19 06:02 Microbiology Microbiology 04/29/19 Gram Stain - Final, Complete 04/29/19 Sputum Culture - Final, Complete Yeast Like Organism 04/28/19 Blood Culture - Preliminary, Resulted No Growth after 72 hours. All specime... JASON ABDULLAHI MD May 02, 2019 09:48
[2019-05-02] MEDS: GASTROGRAFIN SOLUTION 30ML PO SCH ×2 (10:14→10:15)
[2019-05-02] MEDS ORDERED: ISOVUE-370 76% 100ML VIAL (Q9967) As Ordered ONE (12:16)
[2019-05-02 18:05] LABS: HEMATOCRIT 31.4 % (42.0-52.0); HEMOGLOBIN 9.9 g/dl (13.5-17.5); MEAN CORPUSCULAR HEMOGLOBIN 28.7 pg (27.0-33.0); MEAN CORPUSCULAR HGB CONC 31.5 g/dl (32.0-36.5); PLATELET COUNT, AUTOMATED 100 10^3/uL (150-450); RED BLOOD COUNT 3.45 10^6/uL (4.30-6.10); WHITE BLOOD COUNT 4.8 10^3/uL (4.0-10.0)
[2019-05-02 18:07] LABS: ABG BASE EXCESS -7.8 (-2.0-2.0); ABG HCO3 18.7 MEQ/L (22.0-26.0); ABG O2 SATURATION 98.3 % (95.0-99.0); ABG PARTIAL PRESSURE CO2 41.8 mmHg (35.0-45.0); ABG PARTIAL PRESSURE O2 116.7 mmHg (75.0-100.0); ABG STANDARD HCO3 18.1 MEQ/L (22.0-26.0); ABG pH (ARTERIAL) 7.268 UNITS (7.350-7.450)
[2019-05-02 18:30] LABS: ALBUMIN 1.7 GM/DL (3.2-5.2); ALT/SGPT 26 U/L (12-78); BILIRUBIN,TOTAL 0.4 MG/DL (0.2-1.0); BLOOD UREA NITROGEN 36 MG/DL (7-18); CALCIUM LEVEL 7.1 MG/DL (8.8-10.2); CARBON DIOXIDE LEVEL 25 MEQ/L (21-32); CHLORIDE LEVEL 103 MEQ/L (98-107); CK-MB VALUE MASS 5.8 NG/ML (<3.6); CPK CREATINE PHOSPHOKINASE 463 U/L (39-308); CREATININE FOR GFR 1.27 MG/DL (0.70-1.30); GLOMERULAR FILTRATION RATE > 60.0 (>49); GLUCOSE, FASTING 70 MG/DL (70-100); MB/CK RELATIVE INDEX 1.25 (< OR =4); NT-PRO BNP 8473 PG/ML (<125); POTASSIUM SERUM 4.3 MEQ/L (3.5-5.1); SODIUM LEVEL 136 MEQ/L (136-145); TOTAL PROTEIN 5.7 GM/DL (6.4-8.2); TROPONIN I < 0.02 NG/ML (< 0.10)
[2019-05-02 18:53] LABS: ATYPICAL LYMPH 2 % (0-5); MONOCYTES 1 % (0-5); NEUTROPHILS 76 % (28-66)
[2019-05-02 18:54] LABS: ANISOCYTOSIS 1+; OVALOCYTES 2+; POIKILOCYTOSIS 1+
[2019-05-02 18:55] LABS: PLATELET ESTIMATE DECREASED (NORMAL)
[2019-05-02] MEDS: RAMELTEON 8 MG TAB (ROZEREM) PO SCH (21:00)
[2019-05-02] MEDS: cefTRIAXone SOD 2 GM in D5W MINI-BAG PLUS 50 ML IV SCH (21:37)
[2019-05-02 23:17] LABS: ABG BASE EXCESS -5.2 (-2.0-2.0); ABG HCO3 19.8 MEQ/L (22.0-26.0); ABG PARTIAL PRESSURE CO2 36.8 mmHg (35.0-45.0); ABG PARTIAL PRESSURE O2 66.9 mmHg (75.0-100.0); ABG STANDARD HCO3 20.1 MEQ/L (22.0-26.0); ABG TOTAL CO2 20.9 MEQ/L (23.0-31.0); ABG pH (ARTERIAL) 7.349 UNITS (7.350-7.450)
[2019-05-02] MEDS ORDERED: fentaNYL 100 MCG/2 ML INJECTION (J3010) As Ordered ONE (23:22)
[2019-05-02] MEDS ORDERED: fentaNYL 100 MCG/2 ML INJECTION (J3010) IV ONE (23:30)
[2019-05-02] MEDS ORDERED: NOREPINEPHRINE 4 MG/4 ML AMP As Ordered ONE (23:30)
[2019-05-02] MEDS ORDERED: LIDOCAINE 1% MDV 20ML VIAL As Ordered ONE (23:59)
[2019-05-03] VITALS (111 sets, daily range): BP systolic 66–121; BP diastolic 34–58; O2SAT 90–98
[2019-05-03] MEDS ORDERED: MEROPENEM INJ 1 GM in IV 1 EA IV SCH ×2
[2019-05-03] MEDS ORDERED: MIDAZOLAM INJ 2 MG/2 ML VIAL (J2250) As Ordered ONE ×2 (00:03→00:04)
[2019-05-03] MEDS ORDERED: LIDOCAINE 1% MDV 20ML VIAL As Ordered ONE ×2 (00:18→00:23)
[2019-05-03] MEDS ORDERED: SODIUM CHLORIDE 0.9% 1000ML IV STA (00:32)
[2019-05-03] MEDS: NOREPINEPHRINE BITARTRATE 16 MG in D5W 484 ML IV SCH ×2 (00:45→12:04)
--- NOTE | 2019-05-03 00:48 | IPNPDOC ---
Date Seen The patient was seen on 05/03/19. Progress Note 05/02/2019 I was paged by RN that patient was hypotensive (SBP in the 80s) and tachycardic into 140s. I evaluated the patient immediately, patient seen on CPAP, minimally responsive but able to follow simple commands, as per , patient was out of bed into the commode earlier today, so this is a drastic change since then. Upon reviewing patient's chest x-ray from 5 PM earlier today patient has a near complete white out of the right lung. Patient's ABG around the same time was acidotic, stat chest x-ray, ABG were ordered, patient immediately transferred to the ICU and placed on BiPAP. EKG obtained, showing a flutter, given patient's hemodynamic instability (SBP in the 60s) he was successfully electrically cardioverted with 150 J, synchronized. Patient was pretreated with fentanyl 50 g 1. Patient's heart rate dropped into the 90s with systolic blood pressure improvement into the low 80s. Due to persistent hypotension patient required vasopressors for blood pressure support, emergent right IJ triple-lumen catheter was placed, under ultrasound guidance, after 2 attempts, minimal blood loss, standard sterile protocol was followed, placement confirmed with x-ray, consent was obtained from . Patient was started on quadruple concentrated Levophed, patient also received 1 L of normal saline bolus during cardioversion and central line placement. ICU team at bedside, performed bedside bronchoscopy, noted mucous plugging in the right lung, drained as much as possible, with some improvement noted, cultures from bronchoscopy pending, patient started on vancomycin and meropenem empirically for postobstructive pneumonia. VS, I&O, 24H, Varghese Vital Signs/I&O Vital Signs Date Time Temp Pulse Resp B/P (MAP) Pulse Ox O2 Delivery O2 Flow Rate FiO2 05/02/19 22:37 146 22 96/50 (65) 92 NIPPV (BIPAP/CPAP) 05/02/19 20:00 2.0 05/02/19 20:00 98.5 I&O- Last 24 Hours up to 6 AM 05/03/19 06:00 Intake Total 1020 ml Output Total 150 ml Balance 870 ml Laboratory Data 24H LABS Laboratory Tests 2 05/02/19 05:16: Blood Gas Bicarbonate Standard 19.6L, Arterial Blood pH 7.274L, Arterial Blood Partial Pressure CO2 46.1H, Arterial Blood Partial Pressure O2 69.4L, Arterial Blood Total CO2 22.3L, Arterial Blood HCO3 20.9L, Arterial Blood Base Excess - 5.8L, Arterial Blood Oxygen Saturation 93.2L 05/02/19 06:01: Lymphocytes # (Auto) , Nucleated Red Blood Cells % (auto) 0.0, Neutrophils 82H, Band Neutrophils 6, Lymphocytes (Manual) 2L, Monocytes (Manual) 7H, Basophils (Manual) 1, Atypical Lymphocytes 2, Polychromasia 1+, Poikilocytosis 1+, Anisocytosis 1+, Platelet Estimate DECREASED 05/02/19 06:02: Anion Gap 8, Glomerular Filtration Rate 56.2, Calcium Level 7.0L, Magnesium Level 2.2, Total Bilirubin 0.3, Aspartate Amino Transf (AST/SGOT) 41H, Alanine Aminotransferase (ALT/SGPT) 21, Alkaline Phosphatase 55, Total Protein 6.2L, Albumin 1.7L, Albumin/Globulin Ratio 0.38L, Lipase 66L 05/02/19 17:37: Blood Gas Bicarbonate Standard 18.1L, Arterial Blood pH 7.268L, Arterial Blood Partial Pressure CO2 41.8, Arterial Blood Partial Pressure O2 116.7H, Arterial Blood Total CO2 20.0L, Arterial Blood HCO3 18.7L, Arterial Blood Base Excess - 7.8L, Arterial Blood Oxygen Saturation 98.3 05/02/19 17:51: Lymphocytes # (Auto) , Nucleated Red Blood Cells % (auto) 0.0, Neutrophils 76H, Band Neutrophils 21H, Monocytes (Manual) 1, Atypical Lymphocytes 2, Poikilocytosis 1+, Anisocytosis 1+, Ovalocytes 2+, Platelet Estimate DECREASED, Anion Gap 8, Glomerular Filtration Rate > 60.0, Calcium Level 7.1L, Total Bilirubin 0.4, Aspartate Amino Transf (AST/SGOT) 62H, Alanine Aminotransferase (ALT/SGPT) 26, Alkaline Phosphatase 67, Ammonia < 10, Total Creatine Kinase 463H, Creatine Kinase MB 5.8H, Creatine Kinase MB Relative Index 1.25, Troponin I < 0.02, LS-Oao-G-Type Natriuretic Peptide 8473H, Total Protein 5.7L, Albumin 1.7L, Albumin/Globulin Ratio 0.43L 05/02/19 23:05: Blood Gas Bicarbonate Standard 20.1L, Arterial Blood pH 7.349L, Arterial Blood Partial Pressure CO2 36.8, Arterial Blood Partial Pressure O2 66.9L, Arterial Blood Total CO2 20.9L, Arterial Blood HCO3 19.8L, Arterial Blood Base Excess - 5.2L, Arterial Blood Oxygen Saturation 94.0L CBC/BMP Laboratory Tests 05/02/19 06:01 05/02/19 06:02 05/02/19 17:51 Microbiology Microbiology 05/03/19 Gram Stain, Received Pending 05/03/19 Sputum Culture, Received Pending 04/29/19 Gram Stain - Final, Complete 04/29/19 Sputum Culture - Final, Complete Yeast Like Organism 04/28/19 Blood Culture - Preliminary, Resulted No Growth after 72 hours. All specime... STANISLAW DAMIAN MD May 03, 2019 00:48
[2019-05-03 00:51] LABS: ABG BASE EXCESS -7.8 (-2.0-2.0); ABG O2 SATURATION 96.5 % (95.0-99.0); ABG PARTIAL PRESSURE CO2 51.4 mmHg (35.0-45.0); ABG PARTIAL PRESSURE O2 92.3 mmHg (75.0-100.0); ABG STANDARD HCO3 18.1 MEQ/L (22.0-26.0); ABG TOTAL CO2 21.5 MEQ/L (23.0-31.0)
[2019-05-03 00:56] LABS: ABG pH (ARTERIAL) 7.207 UNITS (7.350-7.450)
[2019-05-03] MEDS ORDERED: VANCOMYCIN HCL 1,000 MG, VIAL MATE ADAPTER 1 EACH in D5W 250 ML IV ONE (01:00)
[2019-05-03] MEDS ORDERED: CETACAINE SPRAY 5GM ONE (01:09)
[2019-05-03] MEDS: LEVOTHYROXINE 88MCG TABLET (0.088 MG) PO SCH (04:47)
[2019-05-03] MEDS: VANCOMYCIN HCL 1,000 MG, VIAL MATE ADAPTER 1 EACH in D5W 250 ML IV SCH ×2 (04:47→16:51)
[2019-05-03 05:36] LABS: HEMATOCRIT 29.7 % (42.0-52.0); MEAN CORPUSCULAR HEMOGLOBIN 27.9 pg (27.0-33.0); MEAN CORPUSCULAR HGB CONC 30.3 g/dl (32.0-36.5); RED BLOOD COUNT 3.23 10^6/uL (4.30-6.10); WHITE BLOOD COUNT 7.1 10^3/uL (4.0-10.0)
--- NOTE | 2019-05-03 05:49 | PHACANCOPD ---
PHARMACY VANCOMYCIN DOSING Pt Demographics Demographics Patient Age:63 , Weight:99.500 , Gender: male Adjusted Body Weight Date: 05/03/19, Adjusted Body Weight: [84.98] Kg Vancomycin Vancomycin indication: EMPIRIC FOR POSTOBSTRUCTIVE PNA Vancomycin Target Ranges: 15-20 mcg/ml Vancomycin Load Y/N: Yes Load Dose Date Time Vancomycin Load Dose: 2GM Date: 05/03 Time: 0200 Vancomycin Dose Date: 05/03/19. Current Vancomycin Dose: [1 GM Q12H] Intermittent Dosing?: No Labs Micro Microbiology 05/03/19 Blood Culture, Received Pending 05/03/19 Blood Culture, Received Pending 05/03/19 Urine Culture, Received Pending 05/03/19 Gram Stain, Received Pending 05/03/19 Sputum Culture, Received Pending 04/29/19 Gram Stain - Final, Complete 04/29/19 Sputum Culture - Final, Complete Yeast Like Organism 04/28/19 Blood Culture - Preliminary, Resulted No Growth after 72 hours. All specime... Creatinine Clearance Date:05/03/19. Creatinine Clearance: . Assessment and Plan Maintaining Current Dose?: Yes Reason for dose change: No Dose Change Pharmacist Note Pharmacist Note Date: 05/03/19. Pharmacist note:Patient moved to ICU this morning. 63YOM SCR=1.27,calculated CRCL=70.6, to receive empiric tx for postobstructive pneumonia.patient ordered meropenem 1 gm Q8H and Pharmacy dosed Vancomycin .Vanco 1 gm administered @2:30 @0400 this morning(2 gram load),then will begin 1 gram iV [id number] to begintoday@1600.First trough is scheduled for 05/04@1500- Will continue to follow labs and make adjustments as needed. FRANCOIS SÁNCHEZ PHARMACY May 03, 2019 05:49
[2019-05-03 06:05] LABS: ALBUMIN 1.5 GM/DL (3.2-5.2); BILIRUBIN,TOTAL 0.3 MG/DL (0.2-1.0); CREATININE FOR GFR 1.59 MG/DL (0.70-1.30); GLOMERULAR FILTRATION RATE 46.9 (>49); MAGNESIUM LEVEL 2.1 MG/DL (1.8-2.4); TOTAL PROTEIN 5.7 GM/DL (6.4-8.2)
[2019-05-03 06:07] LABS: PLATELET COUNT, AUTOMATED 77 10^3/uL (150-450)
[2019-05-03 06:12] LABS: BASOPHILS 1 % (0-1); LYMPHOCYTES 5 % (16-44); MONOCYTES 5 % (0-5); NEUTROPHILS 88 % (28-66)
[2019-05-03 06:13] LABS: ANISOCYTOSIS 2+; PLATELET ESTIMATE DECREASED (NORMAL)
--- NOTE | 2019-05-03 06:39 | REP ---
CT abdomen and pelvis with IV and oral contrast: History: Abdomen pain. Comparison CT study April 28, 2019. CT contrast dose: 100 mL of intravenous Isovue 370. CT findings: Preliminary digital principal research economist radiograph demonstrates dilated air filled loops of colon in the central abdomen. There is a PleurX catheter noted along the left flank and in the left pleural angle. Axial CT images demonstrate considerable consolidation and some volume loss in the right lung inferiorly. This consolidation and volume loss is much more extensive than on the April 28, 2019 study. Today's portable chest x-ray shows virtually complete opacification of the right hemithorax. There is small left pleural effusion again noted. No significant pericardial effusion is seen. Cardiomegaly is again observed. No focal hepatic lesion is seen. The spleen is somewhat enlarged and there is a small accessory splenule. No abnormality is noted within the pancreas. There are clips in the gallbladder fossa. There is a descending duodenal diverticulum. The kidneys enhance symmetrically. There are large calculi in the renal pelves and collecting systems bilaterally as seen on the noncontrast study from 15 May 2019. No hydronephrosis is seen. There is moderate gaseous distension of the sigmoid colon but there is no CT evidence of sigmoid volvulus or left colonic obstructive lesion. No evidence of free air is seen. There is mild distension and some air-fluid levels seen in of the small intestine. Orally administered contrast is seen labeling the small intestine. There is no evidence of free air or free fluid. Prostate calcifications are seen. No abdominal wall defect is observed. Impression: Bowel gas pattern most consistent with ileus. There is moderate gaseous distension of the sigmoid colon without evidence of sigmoid volvulus or other obstructive lesion. Electronically Signed by Justus Chambers MD 05/03/2019 08:34 A
--- NOTE | 2019-05-03 07:35 | RO ---
DATE OF PROCEDURE: 05/03/2019 PREPROCEDURE DIAGNOSIS: Mucus plugging. POSTPROCEDURE DIAGNOSIS: Mucous plugging. PROCEDURE: Bronchoscopy. SURGEON: Dr. Sadiq Negron. BONE CHAR OPERATOR: None. ANESTHESIA: No IV anesthesia. Patient had received IV fentanyl for recent cardioversion and still slightly sedated from that. The patient was too hypotensive, and appeared comfortable during the procedure. Versed was on hand in case of need for sedation. DESCRIPTION OF PROCEDURE: Given the patient's respiratory status. It was determined urgent to perform this is the patient was full code to evacuate the airway of the mucus plugging in order to avoid hypoxia, respiratory distress and tachyarrhythmias. The patient had a whiteout of the right chest x-ray with a prior history of difficulty with mucus clearing, appeared to have mucus plugging. I therefore prepped the posterior airway with Cetacaine spray. This was followed by 1% lidocaine. The bronchoscope was placed through the mask BiPAP through a bite block with the direct the vision fiberoptic bronchoscope. Time-out was performed identifying the patient with two patient identifiers, correct site, correct procedure. Bronchoscope was inserted into the airway after 1% lidocaine was used to anesthetize the vocal cords. Vocal cords approximated normally. Minimal swelling of the lower pharynx without any masses. Bronchoscope introduced into the airway. There was clearly deviation of the trachea to the right. There was saber-shaped abnormalities to the trachea. There was mucus in the trachea. Mucus of was also found above the cords but much more mucus below the cords. This was suctioned. There was a large amount of mucus in the bronchus intermedius, which extended into the anterior basal segment of the right lower lobe. This was suctioned. Saline rinses were performed. I then performed a wash of the right lower lobe. This was sent for his sputum culture. All airways were suctioned. Bronchoscope was removed. There was no observed complications. Oxygen saturation remained above 90% for the entire procedure. ILEANA
--- NOTE | 2019-05-03 07:38 | CCN ---
DATE: 05/03/2019 CRITICAL CARE TIME: 1 hour. This excludes all procedures. I was called urgently for a patient in respiratory distress that he transferred to the intensive care unit with total whiteout of the right lung. On my arrival Dr. Chavez who is already placing a central line because of hypotension had to cardiovert the patient due to the fact that he had it went into what Dr. Chavez described as a fib. The patient was hypotensive and stable so appropriately Dr. Chavez performed cardioversion. He had given fentanyl for that cardioversion prior to my arrival. On my arrival the patient was minimally arousable was nonverbal. Coughing at times. He had BiPap in place. Upon reviewing his imaging and records, he has a history of radiation to the right with history of difficulty with mucociliary clearance on the right requiring bronchoscopy in the past with significant mucus plugging. He now had worsening right lower lobe infiltrate and on imaging. This was new compared to admission although there were chronic changes in the right lung. The patient been on ceftriaxone only. He now has a bandemia. My concern was for sepsis and mucus plugging. I therefore initiated the sepsis bundle check lactate perform sputum culture, blood cultures changed antibiotics to meropenem vanco until sputum cultures come back. I then placed him on aggressive pulmonary toilet chest PT Acapella with iPap therapy. He will remain on BiPap until awake and able to support his own breathing. Currently has no evidence of hypercarbia. PHYSICAL EXAMINATION: Temperature is 98.5, pulse was up to 146 now down to 90s in a sinus rhythm, respiratory rate was up to 30 now down to 18, blood pressure was 66/50 on 4 mcg per minute of Levophed. Oxygen saturation 92% on 50% FIO2 through bilevel noninvasive therapy. General: Patient is sedated but appears to be able to protect his airways does have some cough. Not following commands. HEENT: Sclerae are anicteric. Pupils are reactive. Mucous membranes are moist. Tongue is midline. Dentition is fair. Posterior pharynx without erythema or exudate. Neck is supple. No tracheal deviation or mass. Lymph no cervical supraclavicular axillary adenopathy. Cardiac: Cardiac sounds appear to be slightly shifted to the right. Regular S1-S2 currently without audible murmur, rub or gallop. However heart sounds are somewhat diminished PMI does not appear to be displaced although there does appear to be some shift to the right of the heart sounds. The breath sounds anteriorly are much more decreased on the right than on the left very poor air entry on the right. There is no retraction. No prolongation expiratory phase. I do not auscultate any rhonchi or wheeze. Abdomen: Soft, nontender, nondistended, somewhat obese without discernible hepatosplenomegaly. Extremities: No masses or hernia. Extremities: No significant edema. Skin is pale without rash, jaundice or bruising. Musculoskeletal: Appears to have muscle wasting. No evidence of joint effusion or fracture. Neuro: No unilateral weakness tremor or asterixis. However not following commands to be able to perform a formal neurologic testing. LABS: Laboratory evaluation shows the white blood cell count of 4.8, bandemia of 21% with hemoglobin 9.9, hematocrit of 31.4, platelet count of 100, sodium is 136, potassium 4.3, chloride is 103, bicarb of 25, BUN of 36, creatinine of 1.27. Arterial blood gas shows a pH of 7.35, pCO2 of 37, pAO2 of 67. Chest x-ray is as described above. IMPRESSION: 1. Recurrent right middle lobe pneumonia with difficulty with mucociliary clearance 2. probable sepsis. The patient was admitted for a urinary potential source of sepsis. Therefore will perform broad-spectrum cover with vanco meropenem likely source currently his pneumonia. Bronchoalveolar wash sent for culture as mentioned above sepsis protocol was initiated with blood cultures and lactic acid. He was initiated on Levophed this was instructed to titrate as needed to maintain a mean arterial pressure 65, does not appear the patient has too much acidosis based on his most recent testing. Laboratory testing however, will recheck this. The patient will require close monitoring while in the intensive care unit for sepsis. Thank you for this consultation. ILEANA
--- NOTE | 2019-05-03 07:53 | REP ---
Portable chest x-ray: AP semi-erect view. History: Short of breath. Comparison study: No number 17 2018. Findings: There is virtually complete opacification of the right hemithorax with volume loss similar to yesterday's radiograph. The left lung is well inflated. There is hazy opacity at the left base suggesting a small amount of left pleural fluid. A left-sided Pleurx catheter is noted in place. A bipolar pacemaker is noted in the heart. Electronically Signed by Justus Chambers MD 05/03/2019 07:45 A
--- NOTE | 2019-05-03 08:21 | REP ---
Portable chest x-ray 06:59 a.m. film: Single view. History: Pneumonia. Comparison study: 12:16 a.m. film on this date. Findings: A right-sided internal jugular central venous line is seen in place with its tip in the expected location of the superior vena cava. Pacemaker leads are again noted. The left lung remains clear with some slight blunting of the left pleural angle indicating small left pleural effusion. There is a left-sided Pleurx catheter. There is nearly complete opacification of the right lung with volume loss and some air bronchograms. This is unchanged. Electronically Signed by Justus Chambers MD 05/03/2019 08:13 A
[2019-05-03] MEDS: POTASSIUM CHLORIDE 10 MEQ SR TABLET PO SCH (08:25)
[2019-05-03] MEDS: CETIRIZINE (ZyrTEC) 10 MG TAB PO SCH (08:25)
[2019-05-03] MEDS: MIRALAX *UNIT DOSE* 17GM PACKET PO SCH (08:25)
[2019-05-03] MEDS: guaiFENesin ER 600 MG TAB PO SCH ×2 (08:25→21:00)
[2019-05-03] MEDS: MEROPENEM INJ 1 GM in IV 1 EA IV SCH ×2 (08:26→16:51)
--- NOTE | 2019-05-03 08:26 | REP ---
Portable chest x-ray: At 12:16 a.m. film. History: Line placement. Comparison study May 02, 2019 and 11:25 p.m. Findings: A right internal jugular central venous line has been inserted with its tip in the expected location of the superior vena cava. There is no evidence of pneumothorax. There is nearly complete opacification of the right hemithorax with some volume loss and perihilar air bronchograms again noted unchanged. The left lateral chest wall and pleural angle are excluded from the field of view. Left Pleurx catheter is noted. A left-sided transvenous pacemaker is seen in place. Impression: Right IJ line in place. No complication seen. Electronically Signed by Justus Chambers MD 05/03/2019 08:18 A
[2019-05-03] MEDS: ACETAMINOPHEN TAB 650MG DOSE (2X325MG) PO PRN (08:27)
--- NOTE | 2019-05-03 08:29 | REP ---
Portable chest x-ray: 11:25 p.m. film. History: CHF. Comparison study May 02, 2019. Findings: A Pleurx catheter is noted at the left base with some mild pleural effusion on the left. No left-sided infiltrate. There is volume loss and virtually complete opacification of the right hemithorax. There is mediastinal shift to the right. A transvenous pacemaker is noted in the right heart via the left side. Electronically Signed by Justus Chambers MD 05/03/2019 08:20 A
--- NOTE | 2019-05-03 11:19 | IPNPDOC ---
Date Seen The patient was seen on 05/03/19. Progress Note SUBJECTIVE: Patient on Bipap this morning, appeared very weak and unable to fully commun icate verbally. Patient was transferred to ICU overnight. Was hypotensive with Afib HR 140s s/p electrical cardioversion. HR now improved but BP still remains labile requiring pressor support. Also s/p bronch by pulm with removal of mucus plug. OBJECTIVE PHYSICAL EXAMINATION: VITAL SIGNS: Please see below. General: Weak, moderate distress on bipap. Eyes: Normal sclera, EOMI HENT: Atraumatic Cardiovascular: Normal rate Pulmonary: Decrease breath sounds b/l, no wheezing noted GI: Soft, nontender, nondistended Skin: Warm and dry Neuro: CN grossly intact. Generalized weakness. LABORATORY DATA, IMAGING STUDIES, MICROBIOLOGY: Please see below. DVT prophylaxis ordered?: HSQ ASSESSMENT AND PLAN: 1. Acute respiratory failure - 2/2 Pneumonia and mucus plugging. - s/p bronchoscopy with mucus plug removal and placed on bipap for respiratory support. - Pulmonology following, appreciate assistance. c/w pulmonary toilet. - c/w IV abx therapy, on meropenem and vancomycin at this time. 2. Sepsis 2/2 Pneumonia - Patient is hypotensive with slightly elevated lactic acidosis on presentation 2.2. - Patient on pressor in ICU to augment BP. - c/w abx torey and vancomycin. - f/u blood, sputum and urine cultures. 3. paroxysmal Afib - w/ RVR during admission s/p electrical cardioversion. Currently rate controlled. - not on AC nor BB/CCB. Would like to initiate by patient has been hypotensive. - ECHO 2018 shows normal EF 65%. - TSH low, f/u free T4. Consider cardiology consultation. - On HSQ for DVT ppx. Discuss with family, think patient will benefit from Lovenox BID dosing for Afib, especially in setting of hx malignancy. 4. Small cell ca of lung - s/p treatment with oncology Dr. Sellers 5. Pneumonia - RUQ consolidation with mucous plug s/p bronchoscopy by pulm. - bipap and O2 support. - c/w IV abx. 6. Abdominal pain - CT evidence of ileus. - If patient unable to tolerate PO with Nausea or vomiting, will make NPO. DVT ppx: HSQ Prognosis: Poor. reported continued decline since his previous fall and continued to weaken. VS, [facility]O Vital Signs Date Time Temp Pulse Resp B/P (MAP) Pulse Ox O2 Delivery O2 Flow Rate FiO2 05/03/19 09:03 77 32 97/52 (67) 100 60 05/03/19 07:30 97.1 NIPPV (BIPAP/CPAP) 05/02/19 20:00 2.0 I&O- Last 24 Hours up to 6 AM 05/03/19 06:00 Intake Total 1660 ml Output Total 150 ml Balance 1510 ml Laboratory Data 24H LABS Laboratory Tests 2 05/02/19 17:37: Blood Gas Bicarbonate Standard 18.1L, Arterial Blood pH 7.268L, Arterial Blood Partial Pressure CO2 41.8, Arterial Blood Partial Pressure O2 116.7H, Arterial Blood Total CO2 20.0L, Arterial Blood HCO3 18.7L, Arterial Blood Base Excess - 7.8L, Arterial Blood Oxygen Saturation 98.3 05/02/19 17:51: Lymphocytes # (Auto) , Nucleated Red Blood Cells % (auto) 0.0, Neutrophils 76H, Band Neutrophils 21H, Monocytes (Manual) 1, Atypical Lymphocytes 2, Poikilocytosis 1+, Anisocytosis 1+, Ovalocytes 2+, Platelet Estimate DECREASED, Anion Gap 8, Glomerular Filtration Rate > 60.0, Calcium Level 7.1L, Total Bilirubin 0.4, Aspartate Amino Transf (AST/SGOT) 62H, Alanine Aminotransferase (ALT/SGPT) 26, Alkaline Phosphatase 67, Ammonia < 10, Total Creatine Kinase 463H, Creatine Kinase MB 5.8H, Creatine Kinase MB Relative Index 1.25, Troponin I < 0.02, [id number]-[id number]-Type Natriuretic Peptide 8473H, Total Protein 5.7L, Albumin 1.7L, Albumin/Globulin Ratio 0.43L 05/02/19 23:05: Blood Gas Bicarbonate Standard 20.1L, Arterial Blood pH 7.349L, Arterial Blood Partial Pressure CO2 36.8, Arterial Blood Partial Pressure O2 66.9L, Arterial Blood Total CO2 20.9L, Arterial Blood HCO3 19.8L, Arterial Blood Base Excess - 5.2L, Arterial Blood Oxygen Saturation 94.0L 05/03/19 00:38: Blood Gas Bicarbonate Standard 18.1L, Arterial Blood pH 7.207*L, Arterial Blood Partial Pressure CO2 51.4H, Arterial Blood Partial Pressure O2 92.3, Arterial Blood Total CO2 21.5L, Arterial Blood HCO3 20.0L, Arterial Blood Base Excess - 7.8L, Arterial Blood Oxygen Saturation 96.5 05/03/19 00:58: Urine Color NEREYDA, Urine Appearance CLOUDYH, Urine pH 5.0, Urine Specific [place] 1.043, Urine Protein 1+H, Urine Glucose (UA) NEGATIVE, Urine Ketones NEGATIVE, Urine Blood 3+H, Urine Nitrite NEGATIVE, Urine Bilirubin NEGATIVE, Urine Urobilinogen 0.2, Urine Leukocyte Esterase NEGATIVE, Urine WBC (Auto) 27H, Urine RBC (Auto) 157H, Urine Hyaline Casts (Auto) 0, Urine Bacteria (Auto) NEGATIVE, Urine Squamous Epithelial Cells 1, Urine Transitional Epithelial Cells 1, Urine Amorphous Sediment SMALLH, Urine Mucus (Auto) SMALL, Urine Sperm (Auto) 05/03/19 01:16: Lactic Acid Level 1.7 05/03/19 05:11: Nucleated Red Blood Cells % (auto) 0.0, Neutrophils 88H, Band Neutrophils 1, Lymphocytes (Manual) 5L, Monocytes (Manual) 5, Basophils (Manual) 1, Anisocytosis 2+, Platelet Estimate DECREASED, Immature Platelet Fraction 2.4, Anion Gap 7L, Glomerular Filtration Rate 46.9L, Calcium Level 7.0L, Magnesium Level 2.1, Total Bilirubin 0.3, Aspartate Amino Transf (AST/SGOT) 55H, Alanine Aminotransferase (ALT/SGPT) 23, Alkaline Phosphatase 67, Total Protein 5.7L, Albumin 1.5L, Albumin/Globulin Ratio 0.36L, Lipase 39L 05/03/19 05:57: Bedside Glucose (Misc Panel) 100 05/03/19 08:56: Methicillin-Resist S.aureus DNA PCR CBC/BMP Laboratory Tests 05/02/19 17:51 05/03/19 05:11 Microbiology Microbiology 05/03/19 Blood Culture, Received Pending 05/03/19 Blood Culture, Received Pending 05/03/19 Urine Culture, Received Pending 05/03/19 Gram Stain, Received Pending 05/03/19 Sputum Culture, Received Pending 04/29/19 Gram Stain - Final, Complete 04/29/19 Sputum Culture - Final, Complete Yeast Like Organism 04/28/19 Blood Culture - Preliminary, Resulted No Growth after 72 hours. All specime... NEVA SAMUELS MD May 03, 2019 11:19
--- NOTE | 2019-05-03 11:48 | CCN ---
DATE OF SERVICE: 05/03/2019 CRITICAL CARE TIME: Is an extra 57 minutes in addition to the 1 hour of critical care time that was already performed earlier this morning. At bedside rounds, the patient is now in a controlled atrial fibrillation (AFib) with a heart rate of 77. Blood pressure remains low 85/50 with 19 mcg/min of Levophed with a mean arterial pressure of 69. He is slightly more alert. Arterial blood gas this morning shows a combination of respiratory and metabolic acidosis. Sepsis bundle was started last evening. Urine output has been difficult to measure as the patient is soaking bed sheets. Even when a Sorto was placed, he was leaking around the Sorto. Therefore, Sorto was removed, more for patient comfort. This morning when attempting chest PT, the patient refused. He remains on bilevel noninvasive therapy at 14/7, obtaining tidal volumes in the high 400/low 500 range. is at bedside. Overall, the patient appears slightly sedated but is arousable and answers yes-or-no questions. Not entirely cooperative with physical examination and history-taking. Pulse is 77 in atrial fibrillation, respiratory rate is 32, blood pressure is 97/52, mean arterial pressure is 67, oxygen saturations 100% on 0.60 FIO2. General: Sedated but arouses to voice. On bilevel noninvasive therapy. HEENT: Pupils are pinpoint but reactive to light. Mucous membranes moist. Tongue is midline. Neck is supple. No tracheal deviation or mass. Right internal jugular (vein) (IJ) with some minimal heme, no surrounding erythema or exudate. Pulmonary: Decreased breath sounds in the right. I do not auscultate any significant air entry on the right. Left is clear. No rhonchi or wheeze. Abdomen: Soft, mostly nontender. There is no guarding. No discernible hepatosplenomegaly. However, abdomen is obese. Extremities: No cyanosis, clubbing, or edema. Skin: Slightly diaphoretic. No rash, jaundice, or bruising. Musculoskeletal: Significant muscle wasting but has good tutoring manager strength bilaterally. Is able to lift his legs off the bed symmetrically approximately 15 degrees. No asterixis. No tremor. LABORATORY EVALUATION: Shows a white blood cell count of 7.1 which is up from 4.8, hemoglobin is 9.0, hematocrit is 29.7, platelet count is 77. He has a neutrophilia yesterday had a bandemia of 21%. Sodium is 137, potassium 4.0, chloride is 107, bicarbonate 23, BUN of 42, creatinine of 1.59, corrected anion gap is just above 13, albumin is low at 1.5. Total protein is low at 5.7. IMPRESSION: 1. Sepsis, likely from pneumonia with poor mucociliary clearance. Recommend chest CT, mucociliary clearance on broad-spectrum antibiotics with vancomycin and meropenem. Will recheck lactate this afternoon, as the patient has had and an anion gap and remains on pressor therapy. 2. Hypotension, likely from the sepsis. However, would not be unreasonable to think that this patient could have systolic dysfunction and, therefore, will obtain an echocardiogram to ensure adequate cardiac output . Will also check SCVO2. 3. High risk for thromboembolic disease. The patient is not on anticoagulation. Does have some thrombocytopenia. However, given the fact that he would be at very high risk given his prior history of malignancy, his immobilization, and his critical illness, would recommend coverage with heparin. Would stop if the patient has a platelet count 50 or loss or is bleeding. 4. Gastrointestinal (GI) prophylaxis should be administered, as the patient currently not eating. 5. Hypoalbuminemia with severe protein malnourishment. 6. Respiratory failure, on bilevel. Will recheck arterial blood gas later this evening. The patient does want to be intubated, mechanical ventilation, and cardiopulmonary resuscitation (CPR) if required at this point in time, despite his very poor prognosis overall. Will continue to follow this critically ill patient. Thank you for this consultation. ILEANA
[2019-05-03] MEDS: PANTOPRAZOLE 40MG INJ (PROTONIX) (C9113) IV SCH (12:01)
[2019-05-03 12:23] LABS: ABG BASE EXCESS -9.3 (-2.0-2.0); ABG HCO3 18.6 MEQ/L (22.0-26.0); ABG O2 SATURATION 97.3 % (95.0-99.0); ABG PARTIAL PRESSURE CO2 48.9 mmHg (35.0-45.0); ABG PARTIAL PRESSURE O2 97.3 mmHg (75.0-100.0); ABG TOTAL CO2 20.1 MEQ/L (23.0-31.0)
[2019-05-03 12:27] LABS: ABG pH (ARTERIAL) 7.197 UNITS (7.350-7.450)
[2019-05-03] MEDS: THIAMINE HCL 200 MG/2 ML VIAL (J3411) IV SCH (14:27)
[2019-05-03] MEDS: HYDROCORTISONE 100 MG/2 ML VIAL (J1720 PER 1) IV SCH ×3 (14:33→23:00)
[2019-05-03] MEDS: HEPARIN SOD (PORCINE) 5000 UNITS/ML VIAL SQ SCH ×2 (14:36→21:00)
[2019-05-03] MEDS: VASOPRESSIN INJ 20 UNITS in NS 499 ML IV SCH ×2 (14:38→23:00)
[2019-05-03 15:19] LABS: ABG HCO3 20.1 MEQ/L (22.0-26.0); ABG O2 SATURATION 98.2 % (95.0-99.0); ABG PARTIAL PRESSURE CO2 47.1 mmHg (35.0-45.0); ABG PARTIAL PRESSURE O2 109.4 mmHg (75.0-100.0); ABG STANDARD HCO3 18.7 MEQ/L (22.0-26.0); ABG TOTAL CO2 21.5 MEQ/L (23.0-31.0)
[2019-05-03 15:21] LABS: ABG pH (ARTERIAL) 7.247 UNITS (7.350-7.450)
[2019-05-03 17:27] LABS: ALBUMIN 1.8 GM/DL (3.2-5.2); BILIRUBIN,TOTAL 0.4 MG/DL (0.2-1.0); CALCIUM LEVEL 6.8 MG/DL (8.8-10.2); CREATININE FOR GFR 2.03 MG/DL (0.70-1.30); GLOMERULAR FILTRATION RATE 35.4 (>49); POTASSIUM SERUM 4.2 MEQ/L (3.5-5.1); TOTAL PROTEIN 5.3 GM/DL (6.4-8.2)
[2019-05-03] MEDS: VANCOMYCIN ORAL SOL 250MG/5ML ORAL SYRINGE PO SCH ×2 (18:19→23:00)
[2019-05-03] MEDS ORDERED: NS 1,000 ML IV ONE (19:00)
[2019-05-04] VITALS (36 sets, daily range): BP systolic 87–107; BP diastolic 50–64; O2SAT 92–98
[2019-05-04] MEDS: MEROPENEM INJ 1 GM in IV 1 EA IV SCH ×3 (00:41→17:17)
[2019-05-04 04:52] LABS: HEMATOCRIT 27.9 % (42.0-52.0); HEMOGLOBIN 8.6 g/dl (13.5-17.5); MEAN CORPUSCULAR HEMOGLOBIN 27.7 pg (27.0-33.0); MEAN CORPUSCULAR HGB CONC 30.8 g/dl (32.0-36.5); MEAN CORPUSCULAR VOLUME 89.7 fl (80.0-96.0); RED BLOOD COUNT 3.11 10^6/uL (4.30-6.10); WHITE BLOOD COUNT 6.5 10^3/uL (4.0-10.0)
[2019-05-04 04:53] LABS: PLATELET COUNT, AUTOMATED 72 10^3/uL (150-450)
[2019-05-04] MEDS: NOREPINEPHRINE BITARTRATE 16 MG in D5W 484 ML IV SCH (04:56)
[2019-05-04] MEDS: VANCOMYCIN HCL 1,000 MG, VIAL MATE ADAPTER 1 EACH in D5W 250 ML IV SCH (04:56)
[2019-05-04 04:58] LABS: CALCIUM LEVEL 6.9 MG/DL (8.8-10.2); CREATININE FOR GFR 1.99 MG/DL (0.70-1.30); FREE T4 0.69 NG/DL (0.76-1.46); GLOMERULAR FILTRATION RATE 36.2 (>49); POTASSIUM SERUM 3.8 MEQ/L (3.5-5.1)
[2019-05-04] MEDS: HYDROCORTISONE 100 MG/2 ML VIAL (J1720 PER 1) IV SCH ×3 (05:05→17:16)
[2019-05-04] MEDS: HEPARIN SOD (PORCINE) 5000 UNITS/ML VIAL SQ SCH ×2 (05:05→14:00)
[2019-05-04] MEDS: LEVOTHYROXINE 88MCG TABLET (0.088 MG) PO SCH (05:05)
[2019-05-04] MEDS: VANCOMYCIN ORAL SOL 250MG/5ML ORAL SYRINGE PO SCH ×2 (05:06→12:00)
[2019-05-04 05:41] LABS: ABG BASE EXCESS -7.1 (-2.0-2.0); ABG HCO3 18.5 MEQ/L (22.0-26.0); ABG PARTIAL PRESSURE CO2 37.6 mmHg (35.0-45.0); ABG PARTIAL PRESSURE O2 92.5 mmHg (75.0-100.0); ABG STANDARD HCO3 18.7 MEQ/L (22.0-26.0); ABG TOTAL CO2 19.7 MEQ/L (23.0-31.0); ABG pH (ARTERIAL) 7.311 UNITS (7.350-7.450)
--- NOTE | 2019-05-04 07:24 | ECHO ---
DATE OF PROCEDURE: 05/03/2019 DATE OF : 1955 AGE: 63 GENDER: Male. HEIGHT: 71 inches. WEIGHT: 216 pounds. BODY SURFACE AREA: 2.18 meters squared. LOCATION: Inpatient ICU room 3203. REFERRING PHYSICIAN: Dr. Sadiq Negron INDICATION: Cardiomegaly. MEASUREMENTS: 2-D MEASUREMENTS: RV - 3.9 cm LV - 4.4 cm Septum 1.1 cm Posterior wall 1.1 cm Aortic root 3.6 cm LA - 4.6 cm LVEF 50-55% DOPPLER MEASUREMENTS: AV - 1.56 m/s LVOT - 0.8 m/s LVOT diameter 2.0 cm MV-E 102, A 50, EA ratio 2.1 Early mitral deceleration time 169 ms PV - 0.75 m/s IVC - 2.6 cm COMMENTS: Normal sinus rhythm with right bundle branch block intermittently atrially paced rhythm. Technically challenging study in light of the patient's body habitus, but some diagnostically useful information was obtained. Normal left ventricular size and LV wall thickness with septal wall motion abnormality suggestive of right ventricular pressure overload, yet preserved global resting systolic function. At least mildly dilated left atrium with a normal pulse Doppler study of LV inflow. Tissue Doppler study could not be performed for technical reasons. Difficult to assess right heart chambers effectively but they appear to be at least upper limits of normal to mildly dilated. We could not estimate his pulmonary arterial pressure, but this is suspected to be high. Moderately dilated inferior vena cava with absent respiratory collapse in keeping with an elevated central venous pressure. Aortic valvular sclerosis without stenosis. Moderately severe mitral annular calcification without inflow tract obstruction. Unable to visualize the pulmonary or tricuspid valves. Pacing leads could be visualized traversing right heart chambers. Small posterior pericardial effusion measuring 5 mm posteriorly. MTDD
[2019-05-04] MEDS: guaiFENesin ER 600 MG TAB PO SCH (09:00)
[2019-05-04] MEDS ORDERED: MULTIVITAMINS/MINERALS THERAP 1 TAB PO SCH (09:00)
[2019-05-04] MEDS: POTASSIUM CHLORIDE 10 MEQ SR TABLET PO SCH (09:00)
[2019-05-04] MEDS: LEVALBUTEROL 1.25 MG/0.5 ML CONCENTRATE NEB INH PRN ×2 (09:01→12:37)
--- NOTE | 2019-05-04 09:01 | REP ---
Single view chest: 05/04/2019. Indication: Respiratory failure. Comparison: Yesterday. Findings: Complete collapse of the right lung is redemonstrated. Lines and tubes are similarly positioned. The left lung is clear. There is no evidence of pneumothorax. Impression: Stable examination compared to yesterday. Electronically Signed by Tee Garcia DO 05/04/2019 08:52 A
--- NOTE | 2019-05-04 09:41 | CCN ---
DATE: 05/04/2019 CRITICAL CARE TIME: 1 hour, this excludes all procedures. This is in addition to the note already dictated by Hugo Ly. I attended bedside rounds of this patient who has a metabolic acidosis from uremia and had hypotension thought to be from sepsis, yet exact source has not been found. Sputum cultures, even bronchoalveolar wash, did not show any significant organisms. He did have mucus plugging. He recently had urolithiasis. Antibiotics changed. He did have three diarrheal bowel movements yesterday and was started on by mouth vancomycin because of hypotension and the possibility of Clostridium difficile; however, C diff panel could not be run as he was already started on by mouth vancomycin by the time it was sent. This was according to hospital policy. Overall, the patient is now off pressors. Has approximately 20 ml/hour of urine output. Mentation is slightly improved. Arterial blood gas has shown decreased metabolic acidosis. He has significant chronic abnormalities of his right lung, bronchiectasis and poor mucociliary clearance. He has chronic protein malnourishment. Plan today is to increase protein supplementation, mobilize the patient, continue to mobilize secretions and continue antibiotic therapy. Will consider de-escalation, however, the patient was recently on pressors yesterday. I agree with what is outlined by the medical student as outlined above. ILEANA
[2019-05-04] MEDS: THIAMINE HCL 200 MG/2 ML VIAL (J3411) IV SCH (10:10)
[2019-05-04] MEDS: PANTOPRAZOLE 40MG INJ (PROTONIX) (C9113) IV SCH (10:10)
[2019-05-04 11:06] LABS: ABG BASE EXCESS -9.7 (-2.0-2.0); ABG O2 SATURATION 91.8 % (95.0-99.0); ABG PARTIAL PRESSURE O2 68.6 mmHg (75.0-100.0); ABG STANDARD HCO3 16.6 MEQ/L (22.0-26.0); ABG TOTAL CO2 18.2 MEQ/L (23.0-31.0)
[2019-05-04 11:11] LABS: ABG pH (ARTERIAL) 7.246 UNITS (7.350-7.450)
--- NOTE | 2019-05-04 13:34 | CCN ---
DATE: 05/04/2019 SUBJECTIVE: Overnight per nursing Mr. Palma had no acute events. He remained hypotensive, however stable overnight. His Levophed and vasopressin were held overnight and his blood pressure remained stable. He was oliguric overnight. He continues to be oliguric this morning. However, his urine output has improved since yesterday with the current urine output of 20 mL/h. He remained on bilevel positive airway pressure (BiPAP) overnight and was saturating in the upper 90s. PHYSICAL EXAMINATION: GENERAL: Mr. Palma is an obese, male, lying in his hospital bed on BiPAP in mild distress. HEENT: Normocephalic, atraumatic. Continuous positive airway pressure (CPAP) mask noted and upon removal the patient was responsive to questioning and appropriate. No lymphadenopathy. No scleral icterus noted. Fair oral dentition noted. RESPIRATORY: Coarse breath sounds heard throughout all lung wells. Mild inspiratory wheezing heard throughout. Right lung lobes do sound coarser than left. CARDIOVASCULAR: Blood pressure this morning is stable however still low with MAP 65-70. Heart rate was normal and an irregularly irregular rhythm was noted. No murmurs, rubs or gallops were heard. ABDOMEN: Abdomen appears mildly distended. No bruising, rashes, organomegaly were seen. The patient did have mild flinching upon deep palpation of all four abdominal quadrants. EXTREMITIES: Lower extremities have bilateral mild nonpitting edema. Left side is slightly more swollen than right. The patient had thromboembolism deterrents (TEDs) and sequential noted in both legs. Upper lower extremity is more swollen than upper right extremity. Distal pulses were palpable, however distant in the lower left extremity. GI: Pt has had 2 episode of watery, green stools of very low volume. :Sorto in place. Urine production is very limited and appears dark in color. SKIN: No obvious lesions, scars, rashes were appreciated. ENDOCRINE: No hot/cold intolerance, sweating, weight gain or loss NEUROLOGIC: The patient is more alert than usual. He is alert to self and place, however not time. He answers questions appropriately and he is able to move extremities spontaneously and follows commands appropriately. PSYCH: Patient is largely nonresponsive to commands. May have a element of resistance/unwillingness to treatment. LABS: HEMATOLOGY: WBC 6.5, RBC 3.11, hemoglobin is 8.6, hematocrit 27.9, platelet count 72. CHEMISTRY: Sodium 138, potassium 3.8, chloride 109, carbon dioxide 21, corrected anion gap is 13.5, creatinine 1.99, and BUN 57. MICROBIOLOGY: Blood samples negative for growth times two. Urine clean catch culture negative. Blood fungal cultures are currently pending. Endotracheal tube sputum samples are negative. IMAGING: Chest x-ray 05/03/2019 at 8:21 a.m. showed complete collapse of the right lung consistent with previous imaging. Lines and tubes are similarly positioned. The left lung is clear. There is no evidence of pneumothorax. With an impression of stable examination compared to yesterday. ASSESSMENT AND PLAN: 1. Sepsis/elevated anion gap acidosis: The patient is currently hypotensive, however stable and not on Levophed or vasopressin as was previously needed. White blood cell count is normal. Anion gap elevated at 13.5 might be due to uremia from acute kidney injury (KIANA). Temperature is normal. CvO2 is 96.3. The patient is on IV meropenem and vancomycin day #2 and has been receiving hydrocortisone 50 mg every 6 hours. 2. Acute kidney injury likely secondary to sepsis: The patient's creatinine and BUN of 1.99 and 57 respectively urine output has increased this morning to 20 mL/h. It was previously 10 mL/h or less than 10 mL/h over the course of his stay. We will continue to monitor urine output and hold any nephrotoxic agents. 3. Severe protein malnourishment: The patient has received two bags of 25% albumin. His most recent albumin is 1.8, which was yesterday. We will continue finding supplementation, start multivitamin and attempt Ensure supplementation. 4. Left upper extremity swelling: Order ultrasound to rule out deep venous thrombosis (DVT). Keep arm elevated to help drain. The patient is currently receiving heparin 5000 units every 8 hours subcutaneously. 5. Bronchiectasis: Start chest physiotherapy (PT) with Xopenex nebulizer treatment as needed. 6. Atrial fibrillation (AFib): Currently not on any anticoagulation or rate control. Primary provider should consider starting AFib management following discharge from ICU. 7. Deconditioning: Start physical therapy (PT). 8. Gastrointestinal (GI) prophylaxis: Continue Protonix 40 mg daily IV. 9. DVT prophylaxis: Continue heparin 5000 units every 8 hours subcutaneously. ISadiq, agree with the history and physical as outlined above after my independent history and physical. MTDD
--- NOTE | 2019-05-04 15:45 | IPNPDOC ---
Date Seen The patient was seen on 05/04/19. Progress Note SUBJECTIVE: Patient off bipap this morning. Still weak and does not communicate much. Opens eyes and mumbles. BP remains low with MAP around 65 but HR controlled. After discussion among patient's family, incident analyst and myself. Patient's family had decided to make patient PHARMACOVIGILANCE SCIENTIST with exception of antibiotics. OBJECTIVE PHYSICAL EXAMINATION: VITAL SIGNS: Please see below. General:Generalized weakness, ill appearing Eyes: Normal sclera, EOMI HENT: Atraumatic Cardiovascular: Normal rate Pulmonary: Decrease breath sounds b/l, no wheezing noted GI: Soft, nontender, nondistended Skin: Warm and dry Neuro: CN grossly intact. Generalized weakness. LABORATORY DATA, IMAGING STUDIES, MICROBIOLOGY: Please see below. DVT prophylaxis ordered?: HSQ ASSESSMENT AND PLAN: Patient is a 63[facility] Afib, Small cell lung ca, COPD, hypothyroid admitted for treatment of urolithiasis and also subsequently treated for acute respiratory failure 2/2 pneumonia and sepsis requiring pressor and Bipap in the ICU. Patient remained hemodynamically unstable with no improvement despite interventions and family had decided to make patient comfort care with only continuing antibiotics at this time. - Discontinued all labs, vital signs and other medications apart from pain medications and antibiotics. - Transfer to med/surg unit. Hospice consultation. - c/w supportive care, pain management. VS, [facility] Vital Signs/I&O Vital Signs Date Time Temp Pulse Resp B/P (MAP) Pulse Ox O2 Delivery O2 Flow Rate FiO2 05/04/19 13:00 75 87/52 (64) 92 NIPPV (BIPAP/CPAP) 40 05/04/19 12:00 97.7 26 05/04/19 09:04 2.0 I&O- Last 24 Hours up to 6 AM 05/04/19 06:00 Intake Total 2894.0 ml Output Total 510 ml Balance 2384.0 ml Laboratory Data 24H LABS Laboratory Tests 2 05/03/19 16:47: Anion Gap 10, Glomerular Filtration Rate 35.4L, Lactic Acid Level 1.7, Calcium Level 6.8L, Total Bilirubin 0.4, Aspartate Amino Transf (AST/SGOT) 54H, Alanine Aminotransferase (ALT/SGPT) 24, Alkaline Phosphatase 63, Total Protein 5.3L, Albumin 1.8L, Albumin/Globulin Ratio 0.51L 05/03/19 18:15: Bedside Glucose (Misc Panel) 103 05/04/19 00:14: Bedside Glucose (Misc Panel) 103 05/04/19 04:26: Anion Gap 8, Glomerular Filtration Rate 36.2L, Calcium Level 6.9L, Nucleated Red Blood Cells % (auto) 0.0, Free Thyroxine 0.69L 05/04/19 05:29: Blood Gas Bicarbonate Standard 18.7L, Arterial Blood pH 7.311L, Arterial Blood Partial Pressure CO2 37.6, Arterial Blood Partial Pressure O2 92.5, Arterial Blood Total CO2 19.7L, Arterial Blood HCO3 18.5L, Arterial Blood Base Excess - 7.1L, Arterial Blood Oxygen Saturation 97.0 05/04/19 10:46: Blood Gas Bicarbonate Standard 16.6L, Arterial Blood pH 7.246*L, Arterial Blood Partial Pressure CO2 40.0, Arterial Blood Partial Pressure O2 68.6L, Arterial Blood Total CO2 18.2L, Arterial Blood HCO3 17.0L, Arterial Blood Base Excess - 9.7L, Arterial Blood Oxygen Saturation 91.8L 05/04/19 12:26: Bedside Glucose (Misc Panel) 119H 05/04/19 15:12: CBC/BMP Laboratory Tests 05/03/19 16:47 05/04/19 04:26 Microbiology Microbiology 05/03/19 Blood Fungal Culture, Received Pending 05/03/19 Blood Culture - Preliminary, Resulted No growth after 24 hours . All specim... 05/03/19 Blood Culture - Preliminary, Resulted No growth after 24 hours . All specim... 05/03/19 Urine Culture - Final, Complete 05/03/19 Gram Stain - Final, Resulted 05/03/19 Sputum Culture, Resulted Pending 04/29/19 Gram Stain - Final, Complete 04/29/19 Sputum Culture - Final, Complete Yeast Like Organism 04/28/19 Blood Culture - Final, Complete NO GROWTH AFTER 5 DAYS NEVA SAMUELS MD May 04, 2019 15:45
[2019-05-04] MEDS ORDERED: MORPHINE 2 MG/ML 1ML VIAL (J2270) IV PRN (16:00)
[2019-05-04] MEDS ORDERED: SCOPOLAMINE 1MG TRANSDERMAL PATCH TOP SCH (16:00)
[2019-05-04] MEDS ORDERED: LORazepam 2 MG/ML VIAL (J2060) IV PRN (16:00)
[2019-05-04] MEDS ORDERED: VANCOMYCIN HCL 1,000 MG, VIAL MATE ADAPTER 1 EACH in D5W 250 ML IV SCH (20:00)
--- NOTE | 2019-05-04 21:22 | ECGEPIP ---
[facility] Test Date: 2019-05-02 Pat Name: MILI BENITEZ Department: Room: [place] [address] Gender: Male Spring Maker: TIFFANY : 1955 Requested By: STANISLAW Lagunas Order Number: [id number] Reading MD: Bala Orantes Measurements Intervals [place] Rate: 141 P: -20 MT: 96 QRS: 60 QRSD: 49 T: 36 QT: 296 QTc: 455 Interpretive Statements POSSIBLE SINUS TACHYCARDIA VS ATRIAL FLUTTER WITH UNDERLYING RIGHT BUNDLE-BRANCH BLOCK PATTERN LOW QRS VOLTAGE ANTEROSEPTAL MYOCARDIAL INFARCTION, OF INDETERMINATE AGE MARKED ST DEPRESSION, CONSIDER SUBENDOCARDIAL INJURY COMPARED TO THE LAST 2 TRACINGS IN THE SYSTEM, PACEMAKER ACTIVITY WAS NOTED Electronically Signed on 05-04-2019 21:21:49 EST by Bala Orantes
[2019-05-05] MEDS: MEROPENEM INJ 1 GM in IV 1 EA IV SCH ×2 (01:20→09:04)
[2019-05-05] MEDS: THIAMINE HCL 200 MG/2 ML VIAL (J3411) IV SCH (09:04)
--- NOTE | 2019-05-05 13:45 | IPNPDOC ---
Date Seen The patient was seen on 05/05/19. Progress Note SUBJECTIVE: Somewhat labored breathing this morning. Does not answer any questions or open eyes. family/friends at bedside. OBJECTIVE PHYSICAL EXAMINATION: VITAL SIGNS: Please see below. General:Generalized weakness, ill appearing Eyes: Normal sclera, EOMI HENT: Atraumatic Cardiovascular: Normal rate Pulmonary: Decrease breath sounds b/l, no wheezing noted GI: Soft, nontender, nondistended Skin: Warm and dry Neuro: CN grossly intact. Generalized weakness. LABORATORY DATA, IMAGING STUDIES, MICROBIOLOGY: Please see below. ASSESSMENT AND PLAN: Patient is a 63M [facility] Afib, Small cell lung ca, COPD, hypothyroid admitted for treatment of urolithiasis and also subsequently treated for acute respiratory failure 2/2 pneumonia and sepsis requiring pressor and Bipap in the ICU. Patient remained hemodynamically unstable with no improvement despite interventions and family had decided to make patient comfort care with only continuing antibiotics at this time. - Discontinued all labs, vital signs and other medications apart from pain medications and antibiotics. - Transfer to med/surg unit. Hospice consultation. - c/w supportive care, pain management. VS, I&O, 24H, [facility] Vital Signs/I&O Vital Signs Date Time Temp Pulse Resp B/P (MAP) Pulse Ox O2 Delivery O2 Flow Rate FiO2 05/04/19 13:00 75 87/52 (64) 92 NIPPV (BIPAP/CPAP) 40 05/04/19 12:00 97.7 26 05/04/19 09:04 2.0 I&O- Last 24 Hours up to 6 AM 05/05/19 05:59 Intake Total 720 ml Output Total 230 ml Balance 490 ml Laboratory Data 24H LABS Laboratory Tests 2 05/04/19 15:12: Vancomycin Level Trough 22.4H Microbiology Microbiology 05/03/19 Blood Fungal Culture, Received Pending 05/03/19 Blood Culture - Preliminary, Resulted No Growth after 48 hours. All Specime... 05/03/19 Blood Culture - Preliminary, Resulted No Growth after 48 hours. All Specime... 05/03/19 Urine Culture - Final, Complete 05/03/19 Gram Stain - Final, Complete 05/03/19 Sputum Culture - Final, Complete Yeast Like Organism 04/29/19 Gram Stain - Final, Complete 04/29/19 Sputum Culture - Final, Complete Yeast Like Organism 04/28/19 Blood Culture - Final, Complete NO GROWTH AFTER 5 DAYS NEVA SAMUELS MD May 05, 2019 13:45
--- NOTE | 2019-05-05 15:30 | DS.PDOC ---
Discharge Summary General Date of Admission Apr 28, 2019 at 20:48 Date of Discharge 05/05/19 Discharge Summary NOTE/DISCHARGE SUMMARY HISTORY OF PRESENT ILLNESS: "This is a 63-year-old male who presents with complaints of weakness, fever and difficulty walking today. At his baseline he walks on his own. Associated symptoms include right sided, nonradiating, 10 /10 abdominal pain, frequent urination, with a change in the smell of the urine and constipation today. He denies having nausea or vomiting, and denies having pain with urination." HOSPITAL COURSE: Patient was treated for Urolithiasis follow by Pneumonia with IV antibiotics during course of treatment. Patient noted to go into Afib w/ RVR as well as hypotension subsequently underwent electrical cardioversion and managed on Bipap in the ICU with pressor support. Patient's clinical status continues to decline despite aggressive intervention and family had decided to make patient comfort care only except for continuing IV antibiotics. Patient was waiting hospice evaluation and possible discharge home for home hospice. However, patient passed today while receiving comfort care. Time of : 14:06 Discharge Medications Scheduled Aspirin (Aspirin EC) 81 Mg Tablet.dr, 81 MG PO DAILY, (Reported) Cetirizine HCl (Cetirizine HCl) 10 Mg Tablet, 10 MG PO DAILY, (Reported) Furosemide (Lasix) 40 Mg Tab, 40 MG PO DAILY, (Reported) Guaifenesin (Mucinex) 600 Mg Tab.er.12h, 600 MG PO Q12H, (Reported) Levothyroxine Sodium (Levoxyl) 88 Mcg Tab, 88 MCG PO DAILY, (Reported) Austin-3 Fatty Acids/Fish Oil (Austin-3 1,000 mg Softgel) 1 Each Capsule, 1 EACH PO DAILY, (Reported) Potassium Chloride (Potassium Chloride) 20 Meq Tab.er.prt, 20 MEQ PO DAILY, (Reported) Spironolactone (Spironolactone) 25 Mg Tab, 25 MG PO DAILY, (Reported) Scheduled PRN Albuterol Sulf (Albuterol Sulfate) 2.5 Mg/3 Ml Nebu, 2.5 MG NEB QID PRN for SHORTNESS OF BREATH, (Reported) Albuterol Sulfate (Ventolin Hfa) 108 Mcg/Act Aer, 2 PUFF INH Q4H PRN for SHORTNESS OF BREATH, (Reported) Allergies Coded Allergies: niacin (Verified Adverse Reaction, Intermediate, FLUSHED X 1.5HOUR, 12/24/18) NEVA SAMUELS MD May 05, 2019 15:30
--- NOTE | 2019-05-05 18:41 | IPN ---
DATE: 05/05/2019 Mr. Palma was largely unresponsive to treatment yesterday and, due to unresponsiveness, was deemed appropriate to be placed on comfort measures only. Overnight, nurse reports that he continued to be unresponsive to nursing staff. He was taken off of continuous positive airway pressure (C-PAP) and placed on 2 liters of oxygen via nasal cannula. He appears to be resting comfortably and is off of all pressors or other medications. The decision to be placed on comfort measures only (THERAPEUTIC RECREATION DIRECTOR)was agreed upon by his and healthcare proxy. Hospice consult will be placed and care will be progressed by the hospice team. IMPRESSION: 1. Failure to thrive. 2. Severe protein malnutrition. 3. Severe renal insufficiency. 4. Bronchiectasis. PLAN: Patient is THERAPEUTIC RECREATION DIRECTOR. Will ensure patient's comfort during this stage of his care. Hospice consult has been placed and is pending. Thank you for allowing us to be part of his care.
== END 2019-05-05 14:06 | disposition expired | DRG 981 ==
LOC: EDBD 17:31 → M ED 17:31 → M ED INP 20:48 → M MSPAV 23:20 → M PCU 04-30 22:19 → M ICU 05-02 23:09
PROVIDERS: ADMIT Internal Medicine; ATTEND Student in an Organized Health Care Education/Training Program
PROC: 0BCF8ZZ Extirpation of Matter from Right Lower Lung Lobe, Via Natural or Artificial Opening Endoscopic (ICD-10-PCS; principal; 2019-05-03)
PROC: 5A2204Z Restoration of Cardiac Rhythm, Single (ICD-10-PCS; 2019-05-03)
PROC: 02HV33Z Insertion of Infusion Device into Superior Vena Cava, Percutaneous Approach (ICD-10-PCS; 2019-05-03)
PROC: 5A09457 Assistance with Respiratory Ventilation, 24-96 Consecutive Hours, Continuous Positive Airway Pressure (ICD-10-PCS; 2019-05-03)
DX: N20.1 Calculus of ureter (principal); R65.21 Severe sepsis with septic shock; E43 Unspecified severe protein-calorie malnutrition; A41.9 Sepsis, unspecified organism; J96.00 Acute respiratory failure, unspecified whether with hypoxia or hypercapnia; J18.9 Pneumonia, unspecified organism; E87.4 Mixed disorder of acid-base balance; C34.90 Malignant neoplasm of unspecified part of unspecified bronchus or lung; K56.7 Ileus, unspecified; N17.9 Acute kidney failure, unspecified; K59.00 Constipation, unspecified; R53.1 Weakness; I48.91 Unspecified atrial fibrillation; J44.9 Chronic obstructive pulmonary disease, unspecified; E03.9 Hypothyroidism, unspecified; R26.2 Difficulty in walking, not elsewhere classified; I49.5 Sick sinus syndrome; Z95.0 Presence of cardiac pacemaker; G47.33 Obstructive sleep apnea (adult) (pediatric); D50.9 Iron deficiency anemia, unspecified; Z90.49 Acquired absence of other specified parts of digestive tract; Z92.21 Personal history of antineoplastic chemotherapy; Z92.3 Personal history of irradiation; Z79.82 Long term (current) use of aspirin; Z79.899 Other long term (current) drug therapy; Z51.5 Encounter for palliative care; Z88.8 Allergy status to other drugs, medicaments and biological substances; Z87.891 Personal history of nicotine dependence